=== PATIENT | female | born 1950 | race Caucasian/White ===

== ENCOUNTER 2022-06-28 15:09 | Inpatient (IN) | payer OTHER ==
--- OUTSIDE RECORDS SUMMARY | 2022-06-28 15:17 | XMS REPORT | Continuity of Care Document ---
:1950 Author Organization [facility] t Address [address] [place] [address] Care Team Providers Name Role Phone Sharpless Primary Care Physician MACHO LOFTON Attending Clinician Unavailable GUILHERME URBAN Attending Clinician Unavailable CO19, NURSENIKKI Attending Clinician Unavailable DR KASSIE UREÑA Attending Clinician Unavailable Lab, Adc Fam Pob I Attending Clinician Unavailable DEANNA PERALTA Attending Clinician Unavailable Doctor Unassigned, [place] Attending Clinician Unavailable DR FAM SORIA Attending Clinician Unavailable Salvador Enrique Attending Clinician Unavailable CHARLY PRICE M.D. Attending Clinician Unavailable LUIS FELIPE AVITIA M.D. Attending Clinician Unavailable LOU POSEY M.D.|DDS Attending Clinician Unavailable KIERAN MORRIS M.D. Attending Clinician Unavailable AIDA BRAVO Attending Clinician Unavailable Physician, No Primary or Family Admitting Clinician UnavailDR KASSIE Anthony Admitting Clinician Unavailable DR FAM SORIA Admitting Clinician Unavailable Salvador Enrique Admitting Clinician Unavailable ALEX MENA Admitting Clinician Unavailable Payers Payer Name Policy Type Policy Number Effective Date Expiration Date S ource Problems Condition Condition Condition Status Onset Resolution Last Treating Co mments Source Name Details Category Date Date Treatment Clinician Date Severe Severe Disease Active [facility] dehydratio dehydratio 04-17 [facility] Hospita 00 l Parkinson' Parkinson' Disease Active 2018-0 M ethodi s disease s disease 3 00:00: Hospita 00 l Memory Memory Disease Active 0 [facility] loss loss 10-27 00:00: Hospita 00 l 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:00: [facility] parkinsoni parkinsoni 00 l sm sm Colitis Colitis [facility] Acute Acute Disease Active [facility] respirator respirator 7-07 Rianna kes y failure y failure 00:00: [facility] melissa with with 00 Center hypoxia hypoxia Low back Low back Problem Active [facility] ans Parotid Parotid Problem Active [facility] Encounter Encounter Problem Active [facility] for for Physici administra administra an s tion of tion of COVID-19 COVID-19 vaccine vaccine Allergies, Adverse Reactions, Alerts Allergy Allergy Status Severity Reaction(s) Onset Inactive Treating Comm ents Source Name Type Date Date Clinician No Known DA Active [facility] 03[facility] s 00:00: [place] 00 [facility] No Known DA Active U [facility] 7-31 [place] [facility] 00:[facility] No Known DA Active U 2018- [facility] Allergie 6 Clear s 00:00: [place] 00 [facility] No Known DA Active U [facility] Allergie 6- [place] s 00:00: Health 00 are [place] No Known DA Active Unknown 2012-08 [facility] Allergie 0-06 Medical s 00:00: Center 00 NO KNOWN Drug Active [facility]ERGIE Class ity of S [facility] Social History Social Habit Start Date Stop Date Quantity Comments Source History of Smokes tobacco [facility] tobacco use daily Hospital History SDNJ [facility] Alcohol Std Hospital Drinks History SDOH [facility] Alcohol Binge Hospital Alcohol intake 2019-04-17 2019-04-17 Current [facility] 00:00:00 00:00:00 non-drinker of Hospital alcohol (finding) History SDOH 2019-04-17 2019-04-17 1 [facility] Alcohol Frequency 00:00:00 00:00:00 Hospita l Tobacco use and 2018-10-27 2018-10-27 Smokeless tobacco Me thodist exposure 00:00:00 00:00:00 non-user Hospital Sex Assigned At [birth year] [facility] 00:00:00 00:00:00 Hospital Smoking Status Start Date Stop Date Source Smokes tobacco daily 2018-10-27 00:00:00 [facility] Former smoker 2016-03-02 00:00:00 2016-03-02 00:00:00 [facility] Medications Ordered Filled Start Stop Current Ordering Indication Dosage Frequency Signature Comments Components Source Medication Medication Date Date Medication? Clinician (SIG) Name Name simvastatin Yes 20mg QD Take 20 mg [facility] (ZOCOR) 20 04-[address] MG tablet 12:08: nightly. Hosp francis 35 l levothyroxi Yes 88ug QD Take 88 Met hodi ne 9- mcg by st (SYNTHROID, 12:08: mouth Hospi ta LEVOXYL) 88 35 every l mcg tablet morning. omeprazole Yes 40mg QD Take 40 mg M ethodi (PriLOSEC) 04-[address] 40 MG 12:08: daily. Hospita capsule 35 l multivitami Yes 1{tbl} QD Take 1 Me thodi n 9-[address] (THERAGRAN) 12:08: mouth Hospi ta tablet 35 daily. l lisinopril Yes 10mg QD Take 1 Metho di (PRINIVIL,Z 9-03 tablet (10 st ESTRIL) 10 00:00: mg total) Ho spita mg tablet 00 by mouth l daily for 30 days. traMADol traMADol 2017- Yes KIERAN TAKE 1 UT HCl - 50 MG HCl - 50 MG 7-20 [facility] TABLET Physici Oral Tablet Oral Tablet 00:00: M.D. EVERY 4 TO ans 00 6 HOURS NEEDED FOR PAIN. traMADol traMADol Yes KIERAN Q6H TAKE 1 UT HCl - 50 MG HCl - 50 MG 6-12 ART[facility] TABLET Physici Oral Tablet Oral Tablet 00:00: M.D. EVERY 6 ans 00 HOURS NEEDED FOR BREAKTHROU GH PAIN. methylPREDN methylPREDN Yes KIERAN take as UT ISolone 4 ISolone 4 6-12 ARTURO directed Physici MG Oral MG Oral 00:00: M.D. for 5 days a ns Tablet Tablet 00 Therapy Therapy Pack Pack Ketorolac Ketorolac Yes KIERAN TAKE 2 UT Tromethamin Tromethamin 6-12 ARTURO PILLS WITH Physici e 10 MG e 10 MG 00:00: M.D. FIRST ans Oral Tablet Oral Tablet 00 DOSE. THEN TAKE 1 PILL EVERY 8HRS NEEDED FOR PAIN (x5 DAYS) doxepin 2017-0 Yes 25mg QD Take [address] (SINEQUAN) 8-17 by mouth [facility] 25 MG 15:59: nightly. Medical capsule 34 Center levothyroxi 2017-0 Yes 88ug Take [address] ne 8-17 mcg by [facility] (SYNTHROID, 15:59: mouth Medic al LEVOTHROID) 34 Every Center 88 MCG morning on tablet an empty stomach. pantoprazol 2017-0 Yes 40mg QD Take [address] e 8-17 by mouth [facility] (PROTONIX) 15:59: daily. Medic al 40 MG 34 Center tablet zolpidem 2017-0 Yes 5mg Take [address] (AMBIEN) 5 8-17 by mouth [facility] MG tablet 15:59: every Medical 34 night as Center needed for Insomnia. lisinopril 2017-0 Yes 20mg QD Take [address] (PRINIVIL,Z 8-17 by mouth Luke s ESTRIL) 20 15:59: daily. Medic al MG tablet 34 Center simvastatin 2017-0 Yes 20mg QD Take [address] (ZOCOR) 20 8-17 by mouth [facility] MG tablet 15:59: nightly. [address] clonazePAM 2017-0 Yes .5mg Take 0.[address] (KLONOPIN) 8-17 mg by [facility] 0.5 MG 15:59: mouth 2 Medical tablet 34 (two) Center times daily as needed for Anxiety. haloperidol 2017-0 Yes 5mg QD Take [address] (HALDOL) 5 8-17 by mouth [facility] MG tablet 15:59: every Medical 34 morning. Center haloperidol 2017-0 Yes 10mg QD Take [address] (HALDOL) 10 8-17 by mouth Luke s MG tablet 15:59: nightly. [address] memantine 2017-0 Yes 10mg Q.5D Take [address] (NAMENDA) 8-17 by mouth 2 Luke s 10 MG 15:59: (two) Medical tablet 34 times Center daily. LORazepam 2017-0 Yes .5mg Take 0.[address] (ATIVAN) 8-17 mg by [facility] 0.5 MG 15:59: mouth Medical tablet 34 every 6 Center (six) hours as needed for Anxiety. trihexyphen 2017-0 Yes 5mg Take [address] idyl 8-17 by mouth 3 [facility] (ARTANE) 5 15:59: (three) Medi melissa MG tablet 34 times Center daily with meals. risperiDONE 2017-0 Yes 2mg Q.5D Take [address] (RISPERDAL) 8-17 by mouth 2 Rianna kes 2 MG tablet 15:59: (two) Medic al 34 times Center daily. QUEtiapine 2017-0 Yes 300mg QD Take [address] (SEROQUEL) 8-17 mg by [facility] 300 MG 15:59: mouth Medical tablet 34 nightly Center Two tablets at night . Immunizations Ordered Immunization Filled Immunization Date Status Commen ts Source Name Name [email or web address] 2020-10-03 Completed [facility] COVID-19 Vacc 30 15:03:00 MCG/0.3ML Intramuscular Suspension Vital Signs Vital Name Observation Time Observation Value Comments Source Height 2020-05-05 20:45:00 157.48 CM Weight 2020-05-05 20:45:00 63.5 KG Height 2020-05-05 12:39:00 132.08 CM Weight 2020-05-05 12:39:00 63.5 KG BP Systolic 2018-10-18 14:03:00 120 mm[Hg] [facility] BP Diastolic 2018-10-18 14:03:00 48 mm[Hg] [facility] Height 2018-10-18 14:03:00 63 [in_us] [facility] Weight 2018-10-18 14:03:00 170 [lb_av] [facility] Body Mass Index 2018-10-18 14:03:00 30.11 kg/m2 [facility] Calculated Heart Rate 2018-10-18 14:03:00 102 /min [facility] BP Systolic 2018-10-04 13:47:00 134 mm[Hg] [facility] BP Diastolic 2018-10-04 13:47:00 63 mm[Hg] [facility] Height 2018-10-04 13:47:00 63 [in_us] [facility] Weight 2018-10-04 13:47:00 170 [lb_av] [facility] Body Mass Index 2018-10-04 13:47:00 30.11 kg/m2 [facility] Calculated Heart Rate 2018-10-04 13:47:00 91 /min [facility] BP Systolic 2018-08-02 15:27:00 132 mm[Hg] [facility] BP Diastolic 2018-08-02 15:27:00 68 mm[Hg] [facility] Height 2018-08-02 15:27:00 63 [in_us] [facility] Weight 2018-08-02 15:27:00 170 [lb_av] [facility] Body Mass Index 2018-08-02 15:27:00 30.11 kg/m2 [facility] Calculated Heart Rate 2018-08-02 15:27:00 96 /min [facility] BP Systolic 2018-06-29 15:13:00 178 mm[Hg] [facility] BP Diastolic 2018-06-29 15:13:00 85 mm[Hg] [facility] Height 2018-06-29 15:13:00 63 [in_us] [facility] Weight 2018-06-29 15:13:00 170 [lb_av] [facility] Body Mass Index 2018-06-29 15:13:00 30.11 kg/m2 [facility] Calculated Heart Rate 2018-06-29 15:13:00 105 /min [facility] Procedures Procedure Date / Time Performed Performing Clinician Sourc e CT Neck soft tissue w 2018-06-29 00:00:00 [facility] contrast [id number] MRI Neck w contrast [id number] 2018-06-29 00:00:00 [facility] MRI Spine lumbar wo contrast 2018-03-10 00:00:00 [facility] [id number] Plan of Care Planned Activity Planned Date Details Comments Source Future Scheduled 2022-06-27 HEPATITIS B VACCINES Met [facility] Test 08:15:27 (1 of 3 - 3-dose series) [code = HEPATITIS B VACCINES (1 of 3 - 3-dose series)] Future Scheduled 2022-06-27 COVID-19 VACCINE (#1) [facility] Test 08:15:27 [code = COVID-19 VACCINE (#1)] Future Scheduled 2022-06-27 BREAST CANCER [facility] Test 08:15:27 SCREENING [code = BREAST CANCER SCREENING] Future Scheduled 2022-06-[address] [facility] Test 08:15:27 [code = COLONOSCOPY SCREENING] Future Scheduled 2022-06-27 SHINGLES VACCINES ([address] [facility] Test 08:15:27 of 2) [code = SHINGLES VACCINES (1 of 2)] Future Scheduled 2022-06-27 65+ [facility]CCAL [facility] Test 08:15:27 VACCINE (1 - PCV) [code = 65+ PNEUMOCOCCAL VACCINE (1 - PCV)] Future Scheduled 2022-06-27 INFLUENZA VACCINE [facility] Test 08:15:27 [code = INFLUENZA VACCINE] Encounters Start End Encounter Admission Attending Care Care Encounter Source Date/Time Date/Time Type Type Clinicians Facility Department ID 2022-05-21 Emergency HFD HFD [id number] ALBINO - 10:19:51 [facility] Depart ent 2020-06-17 Inpatient HCAPM PATIENCE [id number] [facility] 17:39:00 [id number] [facility] 2022-04-23 2022-04-23 Emergency E MACHO LOFTON BL BL [id number] BL 11:30:00 17:50:00 2022-04-20 2022-04-20 Emergency E RAJNI, MHBL MHBL [id number] MHBL 14:01:00 21:20:00 GUILHERME 2020-10-03 2020-10-03 Appointmen TYESHA BROTHERS UTP [id number] [place] 14:00:00 14:00:00 t; CO19, NURSE-COOLE P hysici NURSE-COOL Y ans EY 2020-05-05 2020-05-19 Inpatient E NIRANJAN, [facility] [id number] [facility] 15:33:00 17:30:00 KASSIE Medica l [place] 2020-03-21 2020-03-21 Laboratory Lab, [facility] [id number] 16:57:33 17:17:33 Only Fam Pob I Health [id number] [place] [id number] Professio [id number] nal [address] 2020-03-21 2020-03-21 Outpatient R FABIAN, [facility] [id number] [facility] 16:40:00 16:40:00 DEANNA raymond of [facility] 2020-03-21 2020-03-21 Letter Doctor BALA [id number] 00:00:00 00:00:00 (Out) Unassigned, JOE [id number] [place] [facility] [id number] 2019-02-27 2019-03-02 Outpatient E YANG, [facility] [id number] [place] 13:58:00 19:05:00 FAM Medica l [place] 2019-02-26 2019-02-26 Emergency E MHBL MHBL [id number] MHBL 12:55:00 12:55:00 2019-02-11 2019-02-19 Inpatient UR Enrique, HCAPM MEDI.01 [id number] [facility] 18:30:00 19:06:[address] 2019-01-17 2019-01-17 Appointmen TYESHA PRICE UTP [id number] [place] 14:30:00 14:30:00 t; CHARLY PRICE, Phys Jose Hayes M.D. 2019-01-08 2019-01-08 Appointapril AVITIA [facility] [id number] [place] 14:30:00 14:30:00 t; Jose BRISCOE AJAI, M.D. 2018-10-18 2018-10-21 Outpatient [facility] [id number] 13:30:00 07:00:29 2018-10-18 2018-10-18 Appointmen TATY [facility] Oral & [id number] [place] 13:30:00 13:30:00 t; LOU POSEY Maxillofdeidra BLAKE M.D.|DDS al Surgery an s MEma|DDS 2018-10-04 2018-10-04 Appointmen TYESHA POSEY Oral & [id number] [place] 13:30:00 13:30:00 t; LOU POSEY Maxillofaci Physici JONATHAN, M.D.|DDS al Surgery an s MEma|DDS 2018-08-02 2018-08-02 Outpatient [facility] [id number] 15:00:00 16:10:25 2018-08-02 2018-08-02 Appointmen TYESHA POSEY Oral & [id number] [place] 15:00:00 15:00:00 t; LOU POSEY Maxillofaci Physici JONATHAN, M.D.|DDS al Surgery an s MEma|DDS 2018-07-10 2018-07-10 [facility]AH [facility] [id number] [place] 11:30:00 11:30:00 t; Jose BRISCOE AJAI, M.D. 2018-06-29 2018-06-29 Appointmen TYESHA POSEY Oral & [id number] [place] 15:00:00 15:00:00 t; LOU POSEY Maxillofaci Physici JONATHAN, M.D.|DDS al Surgery an s Jose|DDS 2018-06-28 2018-06-28 [facility], [facility] [id number] [place] 15:00:00 15:00:00 t; LOU POSEY Phy sici JONATHAN, M.D.|JORDON العراقي M.D.|DDS 2018-05-29 2018-05-29 [facility] [id number] [place] 09:00:00 09:00:00 t; Jose BRISCOE AJAI, M.D. 2018-05-25 2018-05-25 [facility] [id number] [place] 08:30:00 08:30:00 t; Jose BRISCOE AJAI, M.D. 2018-04-17 2018-04-17 [facility] [id number] [place] 09:30:00 09:30:00 t; Jose BRISCOE AJAI, M.D. 2018-03-10 2018-03-10 [facility] TYESHA MORRIS [facility] [id number] [place] 10:45:00 10:45:00 t; Jose ALCARAZ Ph dulce maria Zambrano M.D. 2018-01-31 2018-01-31 [facility] [id number] [place] 08:35:00 08:35:00 t; Jose ALCARAZ Orthopedics [facility] dulce maria MORRIS M.D. Results Test Description Test Time Test Comments Results Result Comments Source COMPREHENSIVE METABOLIC PANEL 2020-06-17 18:40:00 Test Item Value Reference Range Interpretation Comme nts SODIUM (test code = NA) 143 mmol/L 134-147 N POTASSIUM (test code = K) 4.3 mmol/L 3.4-5.0 N CHLORIDE (test code = CL) 112 mmol/L 100-108 H CARBON DIOXIDE (test code = CO2) 25 mmol/L 21-32 N ANION GAP (test code = GAP) 6.0 GAP calc 4.0-15.0 N GLUCOSE (test code = GLU) 138 MG/DL 70-110 H BLOOD UREA NITROGEN (test code = BUN) 32 MG/DL 7-18 H GLOMERULAR FILTRATION RATE (test code = GFR) 47 estGFR >60 L CREATININE (test code = CREAT) 1.2 MG/DL 0.6-1.0 H TOTAL PROTEIN (test code = PROT) 6.7 G/DL 6.4-8.2 N ALBUMIN (test code = ALB) 3.0 G/DL 3.4-5.0 L GLOBULIN (test code = GLOB) 3.7 GM/dL ALBUMIN/GLOBULIN RATIO (test code = A/G) 0.8 RATIO 1.2-2.2 L CALCIUM (test code = CA) 8.8 MG/DL 8.5-10.1 N BILIRUBIN TOTAL (test code = BILT) 0.20 MG/DL 0.2-1.2 N SGOT/AST (test code = AST) 26 Unit/L 15-37 N SGPT/ALT (test code = ALT) 20 Unit/L 12-78 N ALKALINE PHOSPHATASE TOTAL (test code = ALKP) 83 Unit/L 45-117 N Completed by Nursing: [id number] 18:40:00 Test Item Value Reference Range Interpretation Comments TROPONIN-I (test < 0.015 NG/ML 0.000-0.045 N Negative: </= 0.045 code = TROPI) Positive: >/= 0.046 Correlation wit h serial results, other cardiac markers, and cl inical findings is nec essary to determine the c linical significance of this result. Quantit ative results using d ifferent methodologies s hould not be compared to one another as nume rical results may shar yby method. Completed by Nursing: NO- XR CHEST 1 [id number] 18:33:00 [facility] 1950 Sex: F Name:LARRY MARINO [facility]ly [facility] : 1950 Age/S: 70 / F [address] Unit #: [id number] Loc: [place] [address] Phys: Garo Veras MD Acct: [id number] Dis Date: Status: REG ER PHONE #: [phone] Exam Date: 06/17/2020 175 FAX #: Reason: dyspnea EXAMS: CPT: [id number] XR CHEST 1 V 51236 Fluoro Time: DAP (Gy m2): Air Kerma (mGy): Site ID: [id number] HISTORY: Dyspnea FINDINGS: The lungs are clear and normally expanded. The heart and pulmonary vasculature is normal. Osseous structures are unremarkable. IMPRESSION: Negative chest X-ray. at 1833 Reported and signed by: Thanh Kemp M.D. CC: Garo Veras MD PAGE 1 Signed Report Name: LARRY MARINO [facility] : 1950 Age/S: 70 / F [address] [facility] Unit #: [id number]: [place] [address] Phys: Garo Veras MD Acct: [id number] Dis Date: Status: REG ER PHONE #: [phone] Exam Date: 06/17/2020 175 FAX #: Reason: dyspnea EXAMS: CPT: [id number] XR CHEST 1 [id number] Fluoro Time: DAP (Gy m2): Air Kerma (mGy): (Continued) Technologist: Jasmyn Kovacs, RT(R)(CT)Trnscb Date/Time: 06/17/2020 (183) [email or web address] Orig Print D/T: S: 06/17/2020 (183) PAGE 2 Signed ReportCOVID 19 INHOUSE [id number] 18:09:00 Test Item Value Reference Range Interpretation Comments COVID 19 INHOUSE AG NEGATIVE Negative Per manu facturer, (test code = negative result s should [id number]) be treated aspr esumptive and, if inconsi stent with clinical signs andsymptoms or necessary for patient man agement, should betested with an alternative mol ecular assay. Negative resultsdo not preclude SA RS-CoV-2 infection and s hould not be usedas the s ole basis for patient man agement decisions. Nega tive results should be considered in t he context of apatient's r ecent exposures, hist ory, presence of cli nicalsigns and symptoms co nsistent with COVID-19. CBC W/AUTO [id number] 18:07:00 Test Item Value Reference Range Interpretation Comments WHITE BLOOD CELL (test code = 10.0 K/mm3 3.5-11.0 N WBC) RED BLOOD CELL (test code = 4.76 M/mm3 4.70-6.10 N RBC) HEMOGLOBIN (test code = HGB) 14.3 G/DL 10.4-14.9 N HEMATOCRIT (test code = HCT) 44.6 % 31.5-44.1 H MEAN CELL VOLUME (test code = 93.7 Fl 84.5-98.6 N MCV) MEAN CELL HGB (test code = MCH) 30.0 pg 27.0-34.2 N MEAN CELL HGB CONCETRATION 32.1 G/DL 31.5-34.0 N (test code = MCHC) RED CELL DISTRIBUTION WIDTH 12.9 SD 11.5-14.5 N (test code = RDW) PLATELET COUNT (test code = 159 K/mm3 150-450 N PLT) MEAN PLATELET VOLUME (test code 10.80 fL 7.0-10.5 H = MPV) NEUTROPHIL % (test code = NT%) 55.4 % 40-76 N IMMATURE GRANULOCYTE % (test 0.3 % 0.0-5.0 N code = IG%) LYMPHOCYTE % (test code = LY%) 34.8 % 20.5-51.1 N MONOCYTE % (test code = MO%) 4.9 % 1.7-9.3 N EOSINOPHIL % (test code = EO%) 4.3 % 0.0-6.0 N BASOPHIL % (test code = BA%) 0.3 % 0.0-2.0 N NUCLEATED RBC % (test code = 0.0 /100WBC% 0.0-1.0 N NRBC%) NEUTROPHIL # (test code = NT#) 5.5 K/mm3 1.8-7.6 N IMMATURE GRANULOCYTE # (test 0.03 x10 3/uL 0.00-0.03 N code = IG#) LYMPHOCYTE # (test code = LY#) 3.5 K/mm3 0.6-3.2 H MONOCYTE # (test code = MO#) 0.5 K/mm3 0.3-1.1 N EOSINOPHIL # (test code = EO#) 0.4 K/mm3 0.0-0.4 N BASOPHIL # (test code = BA#) 0.0 K/mm3 0.0-0.1 N NUCLEATED RBC # (test code = 0.0 K/mm3 0.0-0.1 N NRBC#) MANUAL DIFF REQUIRED (test code NO DIFF/SCN CRITERIA = MDIFF) SARS-CoV (RAPID ANTIGEN)2020-05-19 15:42:00 Test Item Value Reference Range Interpretation Comments SARS-CoV (ANTIGEN) NEGATIVE NEGATIVE (test code = COVAG) COVID AG (test This test has been code = COVAGC) marketed under the FDA Emergency Use Authorization (EUA) to meet challenges of the COVID-19 pandemic. The validation standards normally enforced by the FDA and the [employer] of the [employer] (CAP) are more stringent than those required for this test. Therefore, the result should be interpreted with caution and close attention to other clinical and epidemiological data B12 [id number] 21:53:00 Test Item Value Reference Range Interpretation Comments VIT B12 (test code = A60) 1699.0 pg/mL 180.0-914.0 H [id number] 21:34:00 Test Item Value Reference Range Interpretation Comments Hb A1C % (test code 5.0 % 3.8-6.4 = HBA) A1C % (test code = HbA1c (% ) A1C) Reference Range Normal <5.7 Prediabetes 5.7-6.4 Diabetic >=6.5 VALPROIC ACID (DEPAKENE)2020-05-05 21:28:00 Test Item Value Reference Range Interpretation Comments VALP ACID (test code = 95A) 59.9 ug/mL 50.0-100.0 [id number] 17:10:00 Test Item Value Reference Range Interpretation Comments FOLATE (test code = A75) 22.6 ng/mL 3.1-17.5 H THYROID PANEL/SCREEN (TSH)2020-05-05 16:52:00 Test Item Value Reference Range Interpretation Comments TSH (test code = A57) 2.530 uIU/mL 0.358-3.740 [id number] 16:48:00 Test Item Value Reference Range Interpretation Comments PREALBUMIN (test code = 08E) 36 mg/dL 18-38 LIPID [id number] 16:48:00 Test Item Value Reference Range Interpretation Comments CHOLESTROL (test code = 44A) 171 mg/dL 140-200 TRIGLYCERI (test code = 42B) 108 mg/dL <=149 HDL (test code = 83D) 48.0 mg/dL 40.0-60.0 LDL (test code = 34B) 98 mg/dL <=99 CHL/HDL (test code = CHR) 3.6 0.0-3.4 H [id number] 16:31:00 Test Item Value Reference Range Interpretation Comments MAGNESIUM (test code = 48A) 2.0 mg/dL 1.8-2.4 [id number] 15:32:00 Test Item Value Reference Range Interpretation Comments D-DIMER (test code = <200 ng/mL D-DU 0-234 DDI) D-DIMER COMMENT (test *Level to rule out code = DDCOM) DVT or PE: <235 ng/mL D-DU* [id number] 15:27:00 Test Item Value Reference Range Interpretation Comments FERRITIN (test code = A19) 48.2 ng/mL 8.0-252.0 LDH-LACTIC [id number] 15:27:00 Test Item Value Reference Range Interpretation Comments LDH (test code = 33A) 188 IU/L 84-246 C-REACTIVE PROTEIN [id number] 15:23:00 Test Item Value Reference Range Interpretation Comments CRP QUANT (test code 4.0 mg/L 0.0-2.9 H = CRPQ) Method Change (test Please note the code = METHOD) change in Method and the reference range SARS-CoV (RAPID ANTIGEN)2020-05-05 15:05:00 Test Item Value Reference Range Interpretation Comments SARS-CoV (ANTIGEN) NEGATIVE NEGATIVE (test code = COVAG) COVID AG (test This test has been code = COVAGC) marketed under the FDA Emergency Use Authorization (EUA) to meet challenges of the COVID-19 pandemic. The validation standards normally enforced by the FDA and the [employer] of the [employer] (CAP) are more stringent than those required for this test. Therefore, the result should be interpreted with caution and close attention to other clinical and epidemiological data [id number] 15:00:00 Test Item Value Reference Range Interpretation Comments COLOR (test code = COLU) YELLOW YELLOW CLARITY (test code = CLA) CLEAR CLEAR GLUCOSE UR (test code = UA GLUCOSE) NEGATIVE NEGATIVE BILI UR (test code = BILE) NEGATIVE NEGATIVE KETONES UR (test code = GALO) NEGATIVE NEGATIVE SP GRAVITY (test code = SPGR) 1.022 1.005-1.030 PH UR (test code = PH) 6.5 4.5-8.0 PROTEIN UR (test code = PU) NEGATIVE NEGATIVE UROBIL UR (test code = UROQ) 0.2 EU/dL 0.2-1.0 NITRITE UR (test code = NITRITE) NEGATIVE NEGATIVE BLOOD UR (test code = UA BLOOD) NEGATIVE NEGATIVE LEUK ES UR (test code = LEUK) NEGATIVE NEGATIVE DRUGS OF [id number] 15:00:00 Test Item Value Reference Range Interpretation Comments DRUG SCRN (test code = URINE DRUG HDOA) SCREEN This is an unconfirmed screening result and should not be used for non-medical purposes CANNABINOD (test code Negative NEGATIVE = 88C) AMPHETAMINE (test code Negative NEGATIVE = 84A) BENZODIAZP (test code Negative NEGATIVE = 86A) BARBITURAT (test code Negative NEGATIVE = 85A) OPIATES (test code = Negative NEGATIVE 92B) COCAINE (test code = Negative NEGATIVE 87A) PHENCYCLID (test code Negative NEGATIVE = 66A) METHADONE (test code = Negative NEGATIVE 64A) DOAH (test code = DOAH.) URINE DRUG SCREEN Cut-off values are as follows: Cannabinoids 50 ng/mL Cocaine 300 ng/mL Amphetamines 1000 ng/mL Phencyclidine 25 ng/mL Benzodiazepines 200 ng.mL Methadone 300 ng/mL Barbiturates 200 ng/mL Opiates 2000 ng/mL PRO TIME AND [id number] 13:38:00 Test Item Value Reference Range Interpretation Comments PT (test code = 11.1 s 9.8-13.6 TT) INR (test code = 1.0 INR) INRH (test code = SUGGESTED THERAPEUTIC INRH) RANGE FOR INR: 2.5 - 3.5 For Patients with Prosthetic Valves or Patients with recurrent Thromboembolic Events 2.0 - 3.0 For Most Other Applications PTT (test code = 30.0 s 20.2-38.0 PTT) PTTH (test code = To monitor the PTTH) effectiveness of heparin, we offer the Anti-Xa (Heparin Assay). It can be used for either unfractionated or LMW Heparin. Order Code is ANTI-XA COMPREHENSIVE METABOLIC [id number] 13:30:00 Test Item Value Reference Range Interpretation Comments GLUCOSE (test code = 90 mg/dL 75-100 06D) SODIUM (test code = 140 mmol/L 136-145 01A) POTASSIUM (test code = 4.3 mmol/L 3.6-5.1 01B) CHLORIDE (test code = 112 mmol/L 98-107 H 04A) CO2 (test code = 02A) 23 mmol/L 22-32 ANION GAP (test code = 9.3 mmol/L ANG) BUN (test code = 05D) 28 mg/dL 7-18 H CREATININE (test code 1.2 mg/dL 0.4-1.1 H = 03E) GFR (test code = GFR) 45 mL/min/1.73m\\S\\2 >=90 L GFR 53 mL/min/1.73m\\S\\2 >=90 L (test code = GFRAA) EGFR (test code = eGFR BY CKD-EPI EGFR) CALCULATION IS NOT RECOMMENDED FOR PATIENTS UNDER 18 YEARS OF AGE. BUN/CREA (test code = 23 12-20 H BCR) CALCIUM (test code = 9.5 mg/dL 8.3-9.5 09D) BILI TOTAL (test code 0.2 mg/dL 0.2-1.0 = 11A) PROTEIN (test code = 7.4 g/dL 6.4-8.2 07D) ALBUMIN (test code = 3.5 g/dL 3.5-4.8 08D) GLOBULIN (test code = 3.9 g/dL 1.5-3.8 H GLB) ALB/GLOB (test code = 0.9 1.0-2.6 L AGRR) ALK PHOS (test code = 86 IU/L 42-121 35A) AST (test code = 30A) 12 IU/L <=42 ALT (test code = 31A) 17 IU/L <=78 [id number] 13:30:00 Test Item Value Reference Range Interpretation Comments ACETAMINPH (test code = 94M) <2.0 ug/mL 10.0-30.0 L CARDIAC [id number] 13:29:00 Test Item Value Reference Range Interpretation Comments TROPONIN I (test code = A84) <0.015 ng/mL 0.000-0.045 ALCOHOL BLOOD (ETOH)2020-05-05 13:29:00 Test Item Value Reference Range Interpretation Comments ETOH (test code = HALC) ETHANOL The result is to be used only for medical purposes ALCOHOL (test code = <10 mg/dL <=10 56A) [id number] 13:24:00 Test Item Value Reference Range Interpretation Comments SALICYLATE (test code = 94B) <1.7 mg/dL 2.8-20.0 L CBC (INCLUDES AUTOMATED DIFFERENTIAL)2020-05-05 13:17:00 Test Item Value Reference Range Interpretation Comments WBC (test code = WBC) 11.4 10\\S\\3/uL 4.5-11.0 H RBC (test code = RBC) 5.15 10\\S\\6/uL 3.80-5.80 HGB (test code = HBG) 15.7 g/dL 12.0-15.5 H HCT (test code = HCT) 46.7 % 35.0-44.0 H MCV (test code = MCV) 90.7 fL 81.0-99.0 MCH (test code = MCH) 30.5 pg 27.0-31.0 MCHC (test code = MCHC) 33.6 g/dL 32.0-36.0 RDW (test code = RDW) 12.6 % 11.5-14.5 PLT (test code = PLT) 267 10\\S\\3/uL 130-400 MPV (test code = MPV) 10.4 fL 9.4-12.4 NEUTROP # (test code = NE#) 8.2 10\\S\\3/uL 1.6-8.0 H LYMPH # (test code = LY#) 2.3 10\\S\\3/uL 1.1-3.5 MONOCYTE # (test code = MO#) 0.9 10\\S\\3/uL 0.0-1.1 EOSINOPH # (test code = EO#) 0.1 10\\S\\3/uL 0.0-0.7 BASOPHIL # (test code = BA#) 0.0 10\\S\\3/uL 0.0-0.3 IG # (test code = IG#) 0.06 10\\S\\3/uL 0.00-0.06 NRBC # (test code = NRBC#) 0.00 10\\S\\3/uL 0.00-0.01 NEUTROPH % (test code = NE%) 71.3 % 35.0-73.0 LYMPH % (test code = LY%) 19.8 % 20.0-55.0 L MONO % (test code = MO%) 7.7 % 2.5-10.0 EOSINOPH % (test code = EO%) 0.5 % 0.0-5.0 BASOPHIL % (test code = BA%) 0.2 % 0.0-2.0 IG % (test code = IG%) 0.5 % 0.0-0.8 NRBC% (test code = NRBC%) 0.0 % 0.0-0.2 MANDIFF (test code = MDIFF) NO RBC MORPH (test code = RBCMOR) NORMAL CBC W/AUTO [id number] 15:13:00 Test Item Value Reference Range Interpretation Comments WHITE BLOOD CELL (test code = WBC) 5.99 K/mm3 5.0-12.0 N RED BLOOD CELL (test code = RBC) 3.80 M/mm3 4.20-5.40 L HEMOGLOBIN (test code = HGB) 10.8 G/DL 12.0-16.0 L HEMATOCRIT (test code = HCT) 35.6 % 36.0-46.0 L MEAN CELL VOLUME (test code = MCV) 94 fL 81-99 N MEAN CELL HGB (test code = MCH) 28.4 PGM 27-31 N MEAN CELL HGB CONCENTRATION (test 30.3 G/DL 33-37 L code = MCHC) RED CELL DISTRIBUTION WIDTH (test 22.6 % 11.6-16.2 H code = RDW) PLATELET COUNT (test code = PLT) 222 K/mm3 130-400 N MEAN PLATELET VOLUME (test code = 10.9 fl 7.4-10.4 H MPV) NEUTROPHIL % (test code = NT%) 79.3 % 43-65 H IMMATURE GRANULOCYTE % (test code 0.3 % 0.0-2.0 N = IG%) LYMPHOCYTE % (test code = LY%) 13.7 % 20.5-45.5 L MONOCYTE % (test code = MO%) 5.8 % 5.5-11.7 N EOSINOPHIL % (test code = EO%) 0.7 % 0.9-2.9 L BASOPHIL % (test code = BA%) 0.2 % 0.2-1.0 N NUCLEATED RBC % (test code = 0.0 % 0-1.0 N NRBC%) NEUTROPHIL # (test code = NT#) 4.75 K/mm3 2.2-4.8 N LYMPHOCYTE # (test code = LY#) 0.82 K/mm3 1.3-2.9 L MONOCYTE # (test code = MO#) 0.35 K/mm3 0.3-0.8 N EOSINOPHIL # (test code = EO#) 0.04 K/MM3 0.0-0.2 N BASOPHIL # (test code = BA#) 0.01 K/mm3 0.0-0.1 N DIFFERENTIAL [id number] 15:13:00 Test Item Value Reference Range Interpretation Comments ANISOCYTOSIS (test code = ANISO) 1+ NONE SEEN A - CT HEAD/BRAIN W/O [id number] 12:40:00Patient Name: LARRY MARINO Unit No: [id number] EXAMS: CPT: [id number] CT HEAD/BRAIN W/O CONT 35675 Comparison study: 01/25/2019 HISTORY: dizziness CT SCAN OF THE HEAD WITHOUT CONTRAST FINDINGS: CT scan ofbrain was performed without contrast. CT radiation dose optimization is achieved for this examination by the use of a CT protocol in accordance with ACR practice standards and adherence to erp analyst's recommendations. One or more of the following dose reduction techniques were used: Automated exposure control, adjustment of the mA and/or KV according to patient size, and/or utilization of iterative reconstruction technique. The cortical sulci, cisterns and ventricles are within normal limits. Nointra-axial mass, hemorrhage or evidence of acute infarction is seen. No extra-axial fluid collections are present. The visualized aspects of the orbits and skull are unremarkable. An old right medial orbital wall blowout fracture is yet present. The visualized sinuses are clear. IMPRESSION: 1. No acute intracranial abnormality identified. at 1240 Reported and signed by: Sj Contreras MD CC: Alysia Tracey MD Technologist: Bala Babb CTDI: 45.2 DLP: 999.1 Trscr Dt/Tm: 04/16/2019 (1240) by:[email or web address] [facility] Print D/T: S: 04/16/2019 (1243) BATCH NO: N/A Name: LARRY MARINO [facility] [place] Phys: Alysia Whatley [address] [facility] : 1950 Age: 69 Sex: F [place] Loc: TTIMOTEO E xam Date: 04/16/2019 Status: REG ER PH: FAX: PAGE 1 Signed ReportBASIC METABOLIC [id number] 12:12:00 Test Item Value Reference Range Interpretation Comments SODIUM (test code = 139 mmol/L 136-145 N NA) POTASSIUM (test code 3.7 MMOL/L 3.6-5.2 N = K) CHLORIDE (test code = 111 MMOL/L 98-110 H CL) CARBON DIOXIDE (test 15 mEq/L 24-32 L code = CO2) GLUCOSE (test code = 123 mg/dL 70-110 H GLU) BLOOD UREA NITROGEN 25 mg/dL 7-18 H (test code = BUN) GLOMERULAR FILTRATION 34 >60 L The es timated RATE (test code = glomerular filtration GFR) rate is compute d usingpatient ra ce, age (>18), sex, and serum creatinine. If anyof the needed data elements are mi ssing the Laboratory cannot compute an anthony mation of the glomerul ar filtration rate . CREATININE (test code 1.60 mg/dL 0.60-1.30 H = CREAT) CALCIUM (test code = 9.6 mg/dL 8.6-10.4 N CA) [id number] 12:12:00 Test Item Value Reference Range Interpretation Comments TROPONIN-I (test code = TROPI) 0.00 ng/mL 0.00-0.03 N BASIC METABOLIC [id number] 12:01:00 Test Item Value Reference Range Interpretation Comments SODIUM (test code = 139 mmol/L 136-145 N NA) POTASSIUM (test code 3.7 MMOL/L 3.6-5.2 N = K) CHLORIDE (test code = 111 MMOL/L 98-110 H CL) CARBON DIOXIDE (test 15 mEq/L 24-32 L code = CO2) GLUCOSE (test code = 123 mg/dL 70-110 H GLU) BLOOD UREA NITROGEN 25 mg/dL 7-18 H (test code = BUN) GLOMERULAR FILTRATION 34 >60 L The es timated RATE (test code = glomerular filtration GFR) rate is compute d usingpatient ra ce, age (>18), sex, and serum creatinine. If anyof the needed data elements are mi ssing the Laboratory cannot compute an anthony mation of the glomerul ar filtration rate . CREATININE (test code 1.60 mg/dL 0.60-1.30 H = CREAT) CALCIUM (test code = 9.6 mg/dL 8.6-10.4 N CA) [id number] 12:01:00 Test Item Value Reference Range Interpretation Comments TROPONIN-I (test code = TROPI) ng/mL 0.00-0.03 BASIC METABOLIC [id number] 11:58:00 Test Item Value Reference Range Interpretation Comments SODIUM (test code = NA) 139 mmol/L 136-145 N POTASSIUM (test code = K) 3.7 MMOL/L 3.6-5.2 N CHLORIDE (test code = CL) 111 MMOL/L 98-110 H CARBON DIOXIDE (test code = CO2) 15 mEq/L 24-32 L GLUCOSE (test code = GLU) 123 mg/dL 70-110 H BLOOD UREA NITROGEN (test code = mg/dL 7-18 BUN) GLOMERULAR FILTRATION RATE (test >60 code = GFR) CREATININE (test code = CREAT) mg/dL 0.60-1.30 CALCIUM (test code = CA) 9.6 mg/dL 8.6-10.4 N [id number] 11:58:00 Test Item Value Reference Range Interpretation Comments TROPONIN-I (test code = TROPI) ng/mL 0.00-0.03 CBC W/AUTO [id number] 11:39:00 Test Item Value Reference Range Interpretation Comments WHITE BLOOD CELL (test code = WBC) 5.99 K/mm3 5.0-12.0 N RED BLOOD CELL (test code = RBC) 3.80 M/mm3 4.20-5.40 L HEMOGLOBIN (test code = HGB) 10.8 G/DL 12.0-16.0 L HEMATOCRIT (test code = HCT) 35.6 % 36.0-46.0 L MEAN CELL VOLUME (test code = MCV) 94 fL 81-99 N MEAN CELL HGB (test code = MCH) 28.4 PGM 27-31 N MEAN CELL HGB CONCENTRATION (test 30.3 G/DL 33-37 L code = MCHC) RED CELL DISTRIBUTION WIDTH (test 22.6 % 11.6-16.2 H code = RDW) PLATELET COUNT (test code = PLT) 222 K/mm3 130-400 N MEAN PLATELET VOLUME (test code = 10.9 fl 7.4-10.4 H MPV) NEUTROPHIL % (test code = NT%) 79.3 % 43-65 H IMMATURE GRANULOCYTE % (test code 0.3 % 0.0-2.0 N = IG%) LYMPHOCYTE % (test code = LY%) 13.7 % 20.5-45.5 L MONOCYTE % (test code = MO%) 5.8 % 5.5-11.7 N EOSINOPHIL % (test code = EO%) 0.7 % 0.9-2.9 L BASOPHIL % (test code = BA%) 0.2 % 0.2-1.0 N NUCLEATED RBC % (test code = 0.0 % 0-1.0 N NRBC%) NEUTROPHIL # (test code = NT#) 4.75 K/mm3 2.2-4.8 N LYMPHOCYTE # (test code = LY#) 0.82 K/mm3 1.3-2.9 L MONOCYTE # (test code = MO#) 0.35 K/mm3 0.3-0.8 N EOSINOPHIL # (test code = EO#) 0.04 K/MM3 0.0-0.2 N BASOPHIL # (test code = BA#) 0.01 K/mm3 0.0-0.1 N CBC W/AUTO [id number] 11:39:00 Test Item Value Reference Range Interpretation Comments WHITE BLOOD CELL (test code = WBC) 5.99 K/mm3 5.0-12.0 N RED BLOOD CELL (test code = RBC) 3.80 M/mm3 4.20-5.40 L HEMOGLOBIN (test code = HGB) 10.8 G/DL 12.0-16.0 L HEMATOCRIT (test code = HCT) 35.6 % 36.0-46.0 L MEAN CELL VOLUME (test code = MCV) 94 fL 81-99 N MEAN CELL HGB (test code = MCH) 28.4 PGM 27-31 N MEAN CELL HGB CONCENTRATION (test 30.3 G/DL 33-37 L code = MCHC) RED CELL DISTRIBUTION WIDTH (test 22.6 % 11.6-16.2 H code = RDW) PLATELET COUNT (test code = PLT) 222 K/mm3 130-400 N MEAN PLATELET VOLUME (test code = 10.9 fl 7.4-10.4 H MPV) NEUTROPHIL % (test code = NT%) 79.3 % 43-65 H IMMATURE GRANULOCYTE % (test code 0.3 % 0.0-2.0 N = IG%) LYMPHOCYTE % (test code = LY%) 13.7 % 20.5-45.5 L MONOCYTE % (test code = MO%) 5.8 % 5.5-11.7 N EOSINOPHIL % (test code = EO%) 0.7 % 0.9-2.9 L BASOPHIL % (test code = BA%) 0.2 % 0.2-1.0 N NUCLEATED RBC % (test code = 0.0 % 0-1.0 N NRBC%) NEUTROPHIL # (test code = NT#) 4.75 K/mm3 2.2-4.8 N LYMPHOCYTE # (test code = LY#) 0.82 K/mm3 1.3-2.9 L MONOCYTE # (test code = MO#) 0.35 K/mm3 0.3-0.8 N EOSINOPHIL # (test code = EO#) 0.04 K/MM3 0.0-0.2 N BASOPHIL # (test code = BA#) 0.01 K/mm3 0.0-0.1 N [id number] 14:31:00 RUN DATE: 03/23/19 [facility] - LAB *LIVE* PAGE 1 RUN TIME: 1432 Specimen Inquiry RUN USER: INTERFACE PATIENT: LARRY MARINO LOC: SARTHAK U #: [id number] AGE/SX: 69/F ROOM: [facility] RE03/21/19REG DR: Paxton Veras MD : 54 BED: 1 DIS: 03/23/19 STATUS: DIS IN TLOC: SPEC #: [id number] RECD: 03/22/19 STATUS: BRANDIN ANDREA #: [id number] LIAT: 03/22/[address]: Paxton Veras MD ENTERED: 03/22/19 SP TYPE: SURG OTHR DR: No Primary or Family Physician Self Referred Sadaf IssaERED: AB/PAS ADRIANA/2, SURG PATH LVL 4/, PATH STAIN GROU COPIES TO: No Primary or Family [place]ician [place] [id number] [facility] [place] [address] [email or web address] MD [address] [place] [address] HISTOLOGY: TISSUE ID BLK PCS DWIGHT LEV PROCEDURE DISPOSITION ____ ___ ___ STOMACH, NOS A 1 1 AB/PAS ADRIANA STOMACH, NOS A 1 2 PATH STAIN GROU ESOPHAGUS, NOS B 1 1 AB/PAS ADRIANA PROCEDURES: ALBLUE (03/22/19) PAS (03/22/19) SURG PATH LVL 4 (03/22/19) PATH STAIN GROU (03/22/19) TISSUES: A. STOMACH, NOS - GASTRIC BODY AND ANTRUM B. ES OPHAGUS, NOS - ESOPHAGEAL BIOPSY CLINICAL HISTORY GI BLEEDING, ANEMIA, VOMITING CONTINUED ON NEXTPAGE RUN DATE: 03/23/19 [facility] - LAB *LIVE* PAGE 2 RUN TIME: 1432 Specimen Inquiry RUN USER: INTERFACE SPEC #: [id number] PATIENT: LARRY MARINO #[id number] (Continued) CPT CODES CPT CODE(S): 78233C5 , 35066 , 43636E1 , , , , FINAL DIAGNOSIS A. Stomach, body and antrum, biopsy: MILD CHRONIC GASTRITIS NEGATIVE FOR INTESTINAL METAPLASIA, DYSPLASIA, OR MALIGNANCY NEGATIVE FOR HELICOBACTER PYLORI ORGANISMS B. Esophagus, biopsy: ACUTE ESOPHAGITIS NEGATIVE FOR INTESTINAL METAPLASIA, DYSPLASIA, OR MALIGNANCY GROSS DESCRIPTION A. Gastric body and antrum biopsy. Received in formalin are two florence tissue fragments, 0.2 and 0.5 cm, all as A. B. Esophageal biopsy. Received in formalin is a florence tissue fragment, 0.1 cm, all as B. ba/nr Grossing performed at [facility] Pathology, [address] [place] [address], [address], [place] [address]. Assistant Principal: Rafael Walls M.D. MICROSCOPIC DESCRIPTION A. Gastric body and antrum biopsy. Sections demonstrate gastric mucosa with mild chronic inflammation. No dysplasia or malignancy is identified. Alcian blue-PAS confirms absence of intestinal metaplasia. The Diff Quik stain demonstrates no evidence of Helicobacter pylori organisms. B. Esophageal biopsy. Sections demonstrate squamous mucosa with a reactive appearance. Increased acute inflammation, consisting predominately of neutrophils is identified involving the mucosal surface. No evidence of fungal organisms is identified. Alcian blue- PAS confirms the absence of intestinal metaplasia. Signed SIGNATURE ON FILE Mitesh Colon 03/23/19 1431 END OF REPORT CBC W/AUTO [id number] 04:50:00 Test Item Value Reference Range Interpretation Comments WHITE BLOOD CELL (test code = 7.0 K/mm3 3.5-11.0 N WBC) RED BLOOD CELL (test code = RBC) 3.43 M/mm3 4.70-6.10 L HEMOGLOBIN (test code = HGB) 9.0 G/DL 10.4-14.9 L HEMATOCRIT (test code = HCT) 27.8 % 31.5-44.1 L MEAN CELL VOLUME (test code = 81.0 Fl 84.5-98.6 L MCV) MEAN CELL HGB (test code = MCH) 26.2 pg 27.0-34.2 L MEAN CELL HGB CONCETRATION (test 32.4 G/DL 31.5-34.0 N code = MCHC) RED CELL DISTRIBUTION WIDTH (test 25.6 SD 11.5-14.5 H code = RDW) PLATELET COUNT (test code = PLT) 175.0 K/mm3 150-450 N MEAN PLATELET VOLUME (test code = 10.90 fL 7.0-10.5 H MPV) NEUTROPHIL % (test code = NT%) 70.4 % 40-76 N LYMPHOCYTE % (test code = LY%) 20.3 % 20.5-51.1 L MONOCYTE % (test code = MO%) 8.9 % 1.7-9.3 N EOSINOPHIL % (test code = EO%) 0.4 % 0.0-6.0 N BASOPHIL % (test code = BA%) 0.0 % 0.0-2.0 N NEUTROPHIL # (test code = NT#) 4.92 K/mm3 1.8-7.6 N LYMPHOCYTE # (test code = LY#) 1.4 K/mm3 0.6-3.2 N MONOCYTE # (test code = MO#) 0.6 K/mm3 0.3-1.1 N EOSINOPHIL # (test code = EO#) 0.0 K/mm3 0.0-0.4 N BASOPHIL # (test code = BA#) 0.0 K/mm3 0.0-0.1 N MANUAL DIFF REQUIRED (test code = NO DIFF/SCN CRITERIA MDIFF) RBC [id number] 04:50:00 Test Item Value Reference Range Interpretation Comments ANISOCYTOSIS (test code = ANISO) 1+ NONE CBC W/AUTO [id number] 04:49:00 Test Item Value Reference Range Interpretation Comments WHITE BLOOD CELL (test code = 7.0 K/mm3 3.5-11.0 N WBC) RED BLOOD CELL (test code = RBC) 3.43 M/mm3 4.70-6.10 L HEMOGLOBIN (test code = HGB) 9.0 G/DL 10.4-14.9 L HEMATOCRIT (test code = HCT) 27.8 % 31.5-44.1 L MEAN CELL VOLUME (test code = 81.0 Fl 84.5-98.6 L MCV) MEAN CELL HGB (test code = MCH) 26.2 pg 27.0-34.2 L MEAN CELL HGB CONCETRATION (test 32.4 G/DL 31.5-34.0 N code = MCHC) RED CELL DISTRIBUTION WIDTH (test 25.6 SD 11.5-14.5 H code = RDW) PLATELET COUNT (test code = PLT) 175.0 K/mm3 150-450 N MEAN PLATELET VOLUME (test code = 10.90 fL 7.0-10.5 H MPV) NEUTROPHIL % (test code = NT%) 70.4 % 40-76 N LYMPHOCYTE % (test code = LY%) 20.3 % 20.5-51.1 L MONOCYTE % (test code = MO%) 8.9 % 1.7-9.3 N EOSINOPHIL % (test code = EO%) 0.4 % 0.0-6.0 N BASOPHIL % (test code = BA%) 0.0 % 0.0-2.0 N NEUTROPHIL # (test code = NT#) 4.92 K/mm3 1.8-7.6 N LYMPHOCYTE # (test code = LY#) 1.4 K/mm3 0.6-3.2 N MONOCYTE # (test code = MO#) 0.6 K/mm3 0.3-1.1 N EOSINOPHIL # (test code = EO#) 0.0 K/mm3 0.0-0.4 N BASOPHIL # (test code = BA#) 0.0 K/mm3 0.0-0.1 N MANUAL DIFF REQUIRED (test code = NO DIFF/SCN CRITERIA MDIFF) CBC W/AUTO [id number] 04:49:00 Test Item Value Reference Range Interpretation Comments WHITE BLOOD CELL (test code = 7.0 K/mm3 3.5-11.0 N WBC) RED BLOOD CELL (test code = RBC) 3.43 M/mm3 4.70-6.10 L HEMOGLOBIN (test code = HGB) 9.0 G/DL 10.4-14.9 L HEMATOCRIT (test code = HCT) 27.8 % 31.5-44.1 L MEAN CELL VOLUME (test code = 81.0 Fl 84.5-98.6 L MCV) MEAN CELL HGB (test code = MCH) 26.2 pg 27.0-34.2 L MEAN CELL HGB CONCETRATION (test 32.4 G/DL 31.5-34.0 N code = MCHC) RED CELL DISTRIBUTION WIDTH (test 25.6 SD 11.5-14.5 H code = RDW) PLATELET COUNT (test code = PLT) 175.0 K/mm3 150-450 N MEAN PLATELET VOLUME (test code = 10.90 fL 7.0-10.5 H MPV) NEUTROPHIL % (test code = NT%) 70.4 % 40-76 N LYMPHOCYTE % (test code = LY%) 20.3 % 20.5-51.1 L MONOCYTE % (test code = MO%) 8.9 % 1.7-9.3 N EOSINOPHIL % (test code = EO%) 0.4 % 0.0-6.0 N BASOPHIL % (test code = BA%) 0.0 % 0.0-2.0 N NEUTROPHIL # (test code = NT#) 4.92 K/mm3 1.8-7.6 N LYMPHOCYTE # (test code = LY#) 1.4 K/mm3 0.6-3.2 N MONOCYTE # (test code = MO#) 0.6 K/mm3 0.3-1.1 N EOSINOPHIL # (test code = EO#) 0.0 K/mm3 0.0-0.4 N BASOPHIL # (test code = BA#) 0.0 K/mm3 0.0-0.1 N MANUAL DIFF REQUIRED (test code = NO DIFF/SCN CRITERIA MDIFF) COMPREHENSIVE METABOLIC [id number] 04:44:00 Test Item Value Reference Range Interpretation Comments SODIUM (test code = NA) 144 mmol/L 134-147 N POTASSIUM (test code = 3.2 mmol/L 3.4-5.0 L K) CHLORIDE (test code = 117 mmol/L 100-108 H CL) CARBON DIOXIDE (test 18 mmol/L 21-32 L code = CO2) ANION GAP (test code = 9.0 GAP calc 4.0-15.0 N GAP) GLUCOSE (test code = 98 MG/DL 70-110 N GLU) BLOOD UREA NITROGEN 14 MG/DL 7-18 N (test code = BUN) GLOMERULAR FILTRATION >=60 max estimate >60 RATE (test code = GFR) estGFR CREATININE (test code = 0.7 MG/DL 0.6-1.0 N CREAT) TOTAL PROTEIN (test code 5.9 G/DL 6.4-8.2 L = PROT) ALBUMIN (test code = 3.0 G/DL 3.4-5.0 L ALB) GLOBULIN (test code = 2.9 GM/dL GLOB) ALBUMIN/GLOBULIN RATIO 1.0 RATIO 1.2-2.2 L (test code = A/G) CALCIUM (test code = CA) 8.1 MG/DL 8.5-10.1 L BILIRUBIN TOTAL (test 0.50 MG/DL 0.2-1.2 N code = BILT) SGOT/AST (test code = 18 Unit/L 15-37 N AST) SGPT/ALT (test code = 13 Unit/L 12-78 N ALT) ALKALINE PHOSPHATASE 115 Unit/L 45-117 N TOTAL (test code = ALKP) CBC W/AUTO [id number] 04:28:00 Test Item Value Reference Range Interpretation Comments WHITE BLOOD CELL (test code = 7.0 K/mm3 3.5-11.0 N WBC) RED BLOOD CELL (test code = RBC) 3.43 M/mm3 4.70-6.10 L HEMOGLOBIN (test code = HGB) 9.0 G/DL 10.4-14.9 L HEMATOCRIT (test code = HCT) 27.8 % 31.5-44.1 L MEAN CELL VOLUME (test code = 81.0 Fl 84.5-98.6 L MCV) MEAN CELL HGB (test code = MCH) 26.2 pg 27.0-34.2 L MEAN CELL HGB CONCETRATION (test 32.4 G/DL 31.5-34.0 N code = MCHC) RED CELL DISTRIBUTION WIDTH (test 25.6 SD 11.5-14.5 H code = RDW) PLATELET COUNT (test code = PLT) 175.0 K/mm3 150-450 N MEAN PLATELET VOLUME (test code = 10.90 fL 7.0-10.5 H MPV) NEUTROPHIL % (test code = NT%) % 40-76 N LYMPHOCYTE % (test code = LY%) % 20.5-51.1 L MONOCYTE % (test code = MO%) % 1.7-9.3 N EOSINOPHIL % (test code = EO%) % 0.0-6.0 N BASOPHIL % (test code = BA%) % 0.0-2.0 N NEUTROPHIL # (test code = NT#) K/mm3 1.8-7.6 N LYMPHOCYTE # (test code = LY#) K/mm3 0.6-3.2 N MONOCYTE # (test code = MO#) K/mm3 0.3-1.1 N EOSINOPHIL # (test code = EO#) K/mm3 0.0-0.4 N BASOPHIL # (test code = BA#) K/mm3 0.0-0.1 N MANUAL DIFF REQUIRED (test code = DIFF/SCN CRITERIA MDIFF) CBC W/AUTO [id number] 07:09:00 Test Item Value Reference Range Interpretation Comments WHITE BLOOD CELL (test code = 5.4 K/mm3 3.5-11.0 N WBC) RED BLOOD CELL (test code = RBC) 3.39 M/mm3 4.70-6.10 L HEMOGLOBIN (test code = HGB) 8.7 G/DL 10.4-14.9 L HEMATOCRIT (test code = HCT) 28.1 % 31.5-44.1 L MEAN CELL VOLUME (test code = 82.9 Fl 84.5-98.6 L MCV) MEAN CELL HGB (test code = MCH) 25.7 pg 27.0-34.2 L MEAN CELL HGB CONCETRATION (test 31.0 G/DL 31.5-34.0 L code = MCHC) RED CELL DISTRIBUTION WIDTH (test 25.5 SD 11.5-14.5 H code = RDW) PLATELET COUNT (test code = PLT) 157.0 K/mm3 150-450 N MEAN PLATELET VOLUME (test code = 10.60 fL 7.0-10.5 H MPV) NEUTROPHIL % (test code = NT%) 70.8 % 40-76 LYMPHOCYTE % (test code = LY%) 20.6 % 20.5-51.1 N MONOCYTE % (test code = MO%) 7.8 % 1.7-9.3 N EOSINOPHIL % (test code = EO%) 0.6 % 0.0-6.0 N BASOPHIL % (test code = BA%) 0.2 % 0.0-2.0 N NEUTROPHIL # (test code = NT#) 3.83 K/mm3 1.8-7.6 N LYMPHOCYTE # (test code = LY#) 1.1 K/mm3 0.6-3.2 N MONOCYTE # (test code = MO#) 0.4 K/mm3 0.3-1.1 N EOSINOPHIL # (test code = EO#) 0.0 K/mm3 0.0-0.4 N BASOPHIL # (test code = BA#) 0.0 K/mm3 0.0-0.1 N MANUAL DIFF REQUIRED (test code = NO DIFF/SCN CRITERIA MDIFF) CBC W/AUTO [id number] 07:09:00 Test Item Value Reference Range Interpretation Comments WHITE BLOOD CELL (test code = 5.4 K/mm3 3.5-11.0 N WBC) RED BLOOD CELL (test code = RBC) 3.39 M/mm3 4.70-6.10 L HEMOGLOBIN (test code = HGB) 8.7 G/DL 10.4-14.9 L HEMATOCRIT (test code = HCT) 28.1 % 31.5-44.1 L MEAN CELL VOLUME (test code = 82.9 Fl 84.5-98.6 L MCV) MEAN CELL HGB (test code = MCH) 25.7 pg 27.0-34.2 L MEAN CELL HGB CONCETRATION (test 31.0 G/DL 31.5-34.0 L code = MCHC) RED CELL DISTRIBUTION WIDTH (test 25.5 SD 11.5-14.5 H code = RDW) PLATELET COUNT (test code = PLT) 157.0 K/mm3 150-450 N MEAN PLATELET VOLUME (test code = 10.60 fL 7.0-10.5 H MPV) NEUTROPHIL % (test code = NT%) 70.8 % 40-76 LYMPHOCYTE % (test code = LY%) 20.6 % 20.5-51.1 N MONOCYTE % (test code = MO%) 7.8 % 1.7-9.3 N EOSINOPHIL % (test code = EO%) 0.6 % 0.0-6.0 N BASOPHIL % (test code = BA%) 0.2 % 0.0-2.0 N NEUTROPHIL # (test code = NT#) 3.83 K/mm3 1.8-7.6 N LYMPHOCYTE # (test code = LY#) 1.1 K/mm3 0.6-3.2 N MONOCYTE # (test code = MO#) 0.4 K/mm3 0.3-1.1 N EOSINOPHIL # (test code = EO#) 0.0 K/mm3 0.0-0.4 N BASOPHIL # (test code = BA#) 0.0 K/mm3 0.0-0.1 N MANUAL DIFF REQUIRED (test code = NO DIFF/SCN CRITERIA MDIFF) RBC [id number] 07:09:00 Test Item Value Reference Range Interpretation Comments ANISOCYTOSIS (test code = ANISO) TRACE NONE CBC W/AUTO [id number] 07:09:00 Test Item Value Reference Range Interpretation Comments WHITE BLOOD CELL (test code = 5.4 K/mm3 3.5-11.0 N WBC) RED BLOOD CELL (test code = RBC) 3.39 M/mm3 4.70-6.10 L HEMOGLOBIN (test code = HGB) 8.7 G/DL 10.4-14.9 L HEMATOCRIT (test code = HCT) 28.1 % 31.5-44.1 L MEAN CELL VOLUME (test code = 82.9 Fl 84.5-98.6 L MCV) MEAN CELL HGB (test code = MCH) 25.7 pg 27.0-34.2 L MEAN CELL HGB CONCETRATION (test 31.0 G/DL 31.5-34.0 L code = MCHC) RED CELL DISTRIBUTION WIDTH (test 25.5 SD 11.5-14.5 H code = RDW) PLATELET COUNT (test code = PLT) 157.0 K/mm3 150-450 N MEAN PLATELET VOLUME (test code = 10.60 fL 7.0-10.5 H MPV) NEUTROPHIL % (test code = NT%) 70.8 % 40-76 LYMPHOCYTE % (test code = LY%) 20.6 % 20.5-51.1 N MONOCYTE % (test code = MO%) 7.8 % 1.7-9.3 N EOSINOPHIL % (test code = EO%) 0.6 % 0.0-6.0 N BASOPHIL % (test code = BA%) 0.2 % 0.0-2.0 N NEUTROPHIL # (test code = NT#) 3.83 K/mm3 1.8-7.6 N LYMPHOCYTE # (test code = LY#) 1.1 K/mm3 0.6-3.2 N MONOCYTE # (test code = MO#) 0.4 K/mm3 0.3-1.1 N EOSINOPHIL # (test code = EO#) 0.0 K/mm3 0.0-0.4 N BASOPHIL # (test code = BA#) 0.0 K/mm3 0.0-0.1 N MANUAL DIFF REQUIRED (test code = NO DIFF/SCN CRITERIA MDIFF) CBC W/AUTO [id number] 05:40:00 Test Item Value Reference Range Interpretation Comments WHITE BLOOD CELL (test code = 5.4 K/mm3 3.5-11.0 N WBC) RED BLOOD CELL (test code = RBC) 3.39 M/mm3 4.70-6.10 L HEMOGLOBIN (test code = HGB) 8.7 G/DL 10.4-14.9 L HEMATOCRIT (test code = HCT) 28.1 % 31.5-44.1 L MEAN CELL VOLUME (test code = 82.9 Fl 84.5-98.6 L MCV) MEAN CELL HGB (test code = MCH) 25.7 pg 27.0-34.2 L MEAN CELL HGB CONCETRATION (test 31.0 G/DL 31.5-34.0 L code = MCHC) RED CELL DISTRIBUTION WIDTH (test 25.5 SD 11.5-14.5 H code = RDW) PLATELET COUNT (test code = PLT) 157.0 K/mm3 150-450 N MEAN PLATELET VOLUME (test code = 10.60 fL 7.0-10.5 H MPV) NEUTROPHIL % (test code = NT%) % 40-76 LYMPHOCYTE % (test code = LY%) % 20.5-51.1 N MONOCYTE % (test code = MO%) % 1.7-9.3 N EOSINOPHIL % (test code = EO%) % 0.0-6.0 N BASOPHIL % (test code = BA%) % 0.0-2.0 N NEUTROPHIL # (test code = NT#) K/mm3 1.8-7.6 N LYMPHOCYTE # (test code = LY#) K/mm3 0.6-3.2 N MONOCYTE # (test code = MO#) K/mm3 0.3-1.1 N EOSINOPHIL # (test code = EO#) K/mm3 0.0-0.4 N BASOPHIL # (test code = BA#) K/mm3 0.0-0.1 N MANUAL DIFF REQUIRED (test code = DIFF/SCN CRITERIA MDIFF) GLUCOSE BEDSIDE [id number] 05:31:00 Test Item Value Reference Range Interpretation Comments GLUCOSE BEDSIDE TESTING (test code = 87 mg/dL 70-110 N GLUBED) BASIC METABOLIC [id number] 04:37:00 Test Item Value Reference Range Interpretation Comments SODIUM (test code = NA) 148 mmol/L 134-147 H POTASSIUM (test code = 3.9 mmol/L 3.4-5.0 N K) CHLORIDE (test code = 120 mmol/L 100-108 H CL) CARBON DIOXIDE (test 18 mmol/L 21-32 L code = CO2) ANION GAP (test code = 10.0 GAP calc 4.0-15.0 N GAP) GLUCOSE (test code = 92 MG/DL 70-110 N GLU) BLOOD UREA NITROGEN 26 MG/DL 7-18 H (test code = BUN) GLOMERULAR FILTRATION >=60 max estimate >60 RATE (test code = GFR) estGFR CREATININE (test code = 0.9 MG/DL 0.6-1.0 N CREAT) CALCIUM (test code = CA) 7.7 MG/DL 8.5-10.1 L CBC W/AUTO [id number] 12:42:00 Test Item Value Reference Range Interpretation Comments WHITE BLOOD CELL (test code = 9.7 K/mm3 3.5-11.0 N WBC) RED BLOOD CELL (test code = RBC) 3.50 M/mm3 4.70-6.10 L HEMOGLOBIN (test code = HGB) 9.1 G/DL 10.4-14.9 L HEMATOCRIT (test code = HCT) 28.9 % 31.5-44.1 L MEAN CELL VOLUME (test code = 82.6 Fl 84.5-98.6 L MCV) MEAN CELL HGB (test code = MCH) 26.0 pg 27.0-34.2 L MEAN CELL HGB CONCETRATION (test 31.5 G/DL 31.5-34.0 N code = MCHC) RED CELL DISTRIBUTION WIDTH (test 25.5 SD 11.5-14.5 H code = RDW) PLATELET COUNT (test code = PLT) 142.0 K/mm3 150-450 L MEAN PLATELET VOLUME (test code = 9.90 fL 7.0-10.5 N MPV) NEUTROPHIL % (test code = NT%) 83.8 % 40-76 H LYMPHOCYTE % (test code = LY%) 9.3 % 20.5-51.1 L MONOCYTE % (test code = MO%) 6.6 % 1.7-9.3 N EOSINOPHIL % (test code = EO%) 0.2 % 0.0-6.0 N BASOPHIL % (test code = BA%) 0.1 % 0.0-2.0 N NEUTROPHIL # (test code = NT#) 8.15 K/mm3 1.8-7.6 H LYMPHOCYTE # (test code = LY#) 0.9 K/mm3 0.6-3.2 N MONOCYTE # (test code = MO#) 0.6 K/mm3 0.3-1.1 N EOSINOPHIL # (test code = EO#) 0.0 K/mm3 0.0-0.4 N BASOPHIL # (test code = BA#) 0.0 K/mm3 0.0-0.1 N MANUAL DIFF REQUIRED (test code = NO DIFF/SCN CRITERIA MDIFF) CBC W/AUTO [id number] 12:42:00 Test Item Value Reference Range Interpretation Comments WHITE BLOOD CELL (test code = 9.7 K/mm3 3.5-11.0 N WBC) RED BLOOD CELL (test code = RBC) 3.50 M/mm3 4.70-6.10 L HEMOGLOBIN (test code = HGB) 9.1 G/DL 10.4-14.9 L HEMATOCRIT (test code = HCT) 28.9 % 31.5-44.1 L MEAN CELL VOLUME (test code = 82.6 Fl 84.5-98.6 L MCV) MEAN CELL HGB (test code = MCH) 26.0 pg 27.0-34.2 L MEAN CELL HGB CONCETRATION (test 31.5 G/DL 31.5-34.0 N code = MCHC) RED CELL DISTRIBUTION WIDTH (test 25.5 SD 11.5-14.5 H code = RDW) PLATELET COUNT (test code = PLT) 142.0 K/mm3 150-450 L MEAN PLATELET VOLUME (test code = 9.90 fL 7.0-10.5 N MPV) NEUTROPHIL % (test code = NT%) 83.8 % 40-76 H LYMPHOCYTE % (test code = LY%) 9.3 % 20.5-51.1 L MONOCYTE % (test code = MO%) 6.6 % 1.7-9.3 N EOSINOPHIL % (test code = EO%) 0.2 % 0.0-6.0 N BASOPHIL % (test code = BA%) 0.1 % 0.0-2.0 N NEUTROPHIL # (test code = NT#) 8.15 K/mm3 1.8-7.6 H LYMPHOCYTE # (test code = LY#) 0.9 K/mm3 0.6-3.2 N MONOCYTE # (test code = MO#) 0.6 K/mm3 0.3-1.1 N EOSINOPHIL # (test code = EO#) 0.0 K/mm3 0.0-0.4 N BASOPHIL # (test code = BA#) 0.0 K/mm3 0.0-0.1 N MANUAL DIFF REQUIRED (test code = NO DIFF/SCN CRITERIA MDIFF) RBC [id number] 12:42:00 Test Item Value Reference Range Interpretation Comments ANISOCYTOSIS (test code = 1+ NONE ANISO) PLATELET ESTIMATE (test ADEQUATE THOUSAND ADEQUATE code = PLTEST) PLATELET MORPHOLOGY (test NORMAL code = PLTMORPH) CBC W/AUTO [id number] 12:42:00 Test Item Value Reference Range Interpretation Comments WHITE BLOOD CELL (test code = 9.7 K/mm3 3.5-11.0 N WBC) RED BLOOD CELL (test code = RBC) 3.50 M/mm3 4.70-6.10 L HEMOGLOBIN (test code = HGB) 9.1 G/DL 10.4-14.9 L HEMATOCRIT (test code = HCT) 28.9 % 31.5-44.1 L MEAN CELL VOLUME (test code = 82.6 Fl 84.5-98.6 L MCV) MEAN CELL HGB (test code = MCH) 26.0 pg 27.0-34.2 L MEAN CELL HGB CONCETRATION (test 31.5 G/DL 31.5-34.0 N code = MCHC) RED CELL DISTRIBUTION WIDTH (test 25.5 SD 11.5-14.5 H code = RDW) PLATELET COUNT (test code = PLT) 142.0 K/mm3 150-450 L MEAN PLATELET VOLUME (test code = 9.90 fL 7.0-10.5 N MPV) NEUTROPHIL % (test code = NT%) 83.8 % 40-76 H LYMPHOCYTE % (test code = LY%) 9.3 % 20.5-51.1 L MONOCYTE % (test code = MO%) 6.6 % 1.7-9.3 N EOSINOPHIL % (test code = EO%) 0.2 % 0.0-6.0 N BASOPHIL % (test code = BA%) 0.1 % 0.0-2.0 N NEUTROPHIL # (test code = NT#) 8.15 K/mm3 1.8-7.6 H LYMPHOCYTE # (test code = LY#) 0.9 K/mm3 0.6-3.2 N MONOCYTE # (test code = MO#) 0.6 K/mm3 0.3-1.1 N EOSINOPHIL # (test code = EO#) 0.0 K/mm3 0.0-0.4 N BASOPHIL # (test code = BA#) 0.0 K/mm3 0.0-0.1 N MANUAL DIFF REQUIRED (test code = NO DIFF/SCN CRITERIA MDIFF) BASIC METABOLIC [id number] 09:45:00 Test Item Value Reference Range Interpretation Comments SODIUM (test code = NA) 148 mmol/L 134-147 H POTASSIUM (test code = K) 4.1 mmol/L 3.4-5.0 N CHLORIDE (test code = CL) 121 mmol/L 100-108 H CARBON DIOXIDE (test code = CO2) 18 mmol/L 21-32 L ANION GAP (test code = GAP) 9.0 GAP calc 4.0-15.0 N GLUCOSE (test code = GLU) 123 MG/DL 70-110 H BLOOD UREA NITROGEN (test code = 48 MG/DL 7-18 H BUN) GLOMERULAR FILTRATION RATE (test 48 estGFR >60 L code = GFR) CREATININE (test code = CREAT) 1.2 MG/DL 0.6-1.0 H CALCIUM (test code = CA) 7.7 MG/DL 8.5-10.1 L CBC W/AUTO [id number] 09:40:00 Test Item Value Reference Range Interpretation Comments WHITE BLOOD CELL (test code = 9.7 K/mm3 3.5-11.0 N WBC) RED BLOOD CELL (test code = RBC) 3.50 M/mm3 4.70-6.10 L HEMOGLOBIN (test code = HGB) 9.1 G/DL 10.4-14.9 L HEMATOCRIT (test code = HCT) 28.9 % 31.5-44.1 L MEAN CELL VOLUME (test code = 82.6 Fl 84.5-98.6 L MCV) MEAN CELL HGB (test code = MCH) 26.0 pg 27.0-34.2 L MEAN CELL HGB CONCETRATION (test 31.5 G/DL 31.5-34.0 N code = MCHC) RED CELL DISTRIBUTION WIDTH (test 25.5 SD 11.5-14.5 H code = RDW) PLATELET COUNT (test code = PLT) 142.0 K/mm3 150-450 L MEAN PLATELET VOLUME (test code = 9.90 fL 7.0-10.5 N MPV) NEUTROPHIL % (test code = NT%) % 40-76 H LYMPHOCYTE % (test code = LY%) % 20.5-51.1 L MONOCYTE % (test code = MO%) % 1.7-9.3 N EOSINOPHIL % (test code = EO%) % 0.0-6.0 N BASOPHIL % (test code = BA%) % 0.0-2.0 N NEUTROPHIL # (test code = NT#) K/mm3 1.8-7.6 H LYMPHOCYTE # (test code = LY#) K/mm3 0.6-3.2 N MONOCYTE # (test code = MO#) K/mm3 0.3-1.1 N EOSINOPHIL # (test code = EO#) K/mm3 0.0-0.4 N BASOPHIL # (test code = BA#) K/mm3 0.0-0.1 N MANUAL DIFF REQUIRED (test code = DIFF/SCN CRITERIA MDIFF) BASIC METABOLIC [id number] 03:59:00 Test Item Value Reference Range Interpretation Comments SODIUM (test code = NA) 146 mmol/L 134-147 N POTASSIUM (test code = K) 3.6 mmol/L 3.4-5.0 N CHLORIDE (test code = CL) 119 mmol/L 100-108 H CARBON DIOXIDE (test code = 15 mmol/L 21-32 L CO2) ANION GAP (test code = GAP) 12.0 GAP calc 4.0-15.0 N GLUCOSE (test code = GLU) 117 MG/DL 70-110 H BLOOD UREA NITROGEN (test code 57 MG/DL 7-18 H = BUN) GLOMERULAR FILTRATION RATE 40 estGFR >60 L (test code = GFR) CREATININE (test code = CREAT) 1.4 MG/DL 0.6-1.0 H CALCIUM (test code = CA) 8.3 MG/DL 8.5-10.1 L HEPATIC FUNCTION [id number] 03:59:00 Test Item Value Reference Range Interpretation Comments TOTAL PROTEIN (test code = PROT) 6.1 G/DL 6.4-8.2 L ALBUMIN (test code = ALB) 3.0 G/DL 3.4-5.0 L BILIRUBIN TOTAL (test code = BILT) 0.60 MG/DL 0.2-1.2 N BILIRUBIN DIRECT (test code = 0.10 MG/DL 0.00-0.30 N BILD) BILIRUBIN INDIRECT (test code = 0.50 MG/DL 0.2-1.2 N BILIND) SGOT/AST (test code = AST) 18 Unit/L 15-37 N SGPT/ALT (test code = ALT) < 6 Unit/L 12-78 L ALKALINE PHOSPHATASE TOTAL (test 125 Unit/L 45-117 H code = ALKP) [id number] 03:59:00 Test Item Value Reference Range Interpretation Comments LIPASE (test code = LIP) 202 Unit/L 114-286 N PROTHROMBIN [id number] 03:45:00 Test Item Value Reference Range Interpretation Comments PT PATIENT (test code = PTP) 11.3 SECONDS 9.3-12.9 N INTERNATIONAL NORMAL RATIO 0.98 INR Unit 0.8-1.2 N (test code = INR) CBC W/O [id number] 03:30:00 Test Item Value Reference Range Interpretation Comments WHITE BLOOD CELL (test code = 8.6 K/mm3 3.5-11.0 N WBC) RED BLOOD CELL (test code = RBC) 3.29 M/mm3 4.70-6.10 L HEMOGLOBIN (test code = HGB) 8.0 G/DL 10.4-14.9 L HEMATOCRIT (test code = HCT) 26.7 % 31.5-44.1 L MEAN CELL VOLUME (test code = 81.2 Fl 84.5-98.6 L MCV) MEAN CELL HGB (test code = MCH) 24.3 pg 27.0-34.2 L MEAN CELL HGB CONCETRATION (test 30.0 G/DL 31.5-34.0 L code = MCHC) RED CELL DISTRIBUTION WIDTH (test 27.1 SD 11.5-14.5 H code = RDW) PLATELET COUNT (test code = PLT) 188.0 K/mm3 150-450 N MEAN PLATELET VOLUME (test code = 11.30 fL 7.0-10.5 H MPV) BASIC METABOLIC [id number] 06:07:00 Test Item Value Reference Range Interpretation Comments GLUCOSE (test code = 06D) 95 mg/dL 75-100 SODIUM (test code = 01A) 147 mmol/L 136-145 H POTASSIUM (test code = 01B) 3.9 mmol/L 3.6-5.1 CHLORIDE (test code = 04A) 121 mmol/L 98-107 H CO2 (test code = 02A) 17 mmol/L 22-32 L ANION GAP (test code = ANG) 12.9 mmol/L BUN (test code = 05D) 13 mg/dL 7-18 CREATININE (test code = 03E) 1.0 mg/dL 0.4-1.1 BUN/CREA (test code = BCR) 13 12-20 CALCIUM (test code = 09D) 8.2 mg/dL 8.3-9.5 L [id number] 06:42:00 Test Item Value Reference Range Interpretation Comments LITHIUM (test code = 0.40 mmol/L 0.60-1.50 L LI) LIH (test code = LIH) LIT HIUM THERAPEUTIC RANGE Acute ivan: 1.0-1.5 mmol/L Anish-term control 0.6-1.2 mmol/L Toxic level: > 2.0 mmol/L BASIC METABOLIC [id number] 06:37:00 Test Item Value Reference Range Interpretation Comments GLUCOSE (test code = 06D) 96 mg/dL 75-100 SODIUM (test code = 01A) 147 mmol/L 136-145 H POTASSIUM (test code = 01B) 3.1 mmol/L 3.6-5.1 L CHLORIDE (test code = 04A) 120 mmol/L 98-107 H CO2 (test code = 02A) 18 mmol/L 22-32 L ANION GAP (test code = ANG) 12.1 mmol/L BUN (test code = 05D) 7 mg/dL 7-18 CREATININE (test code = 03E) 1.0 mg/dL 0.4-1.1 BUN/CREA (test code = BCR) 7 12-20 L CALCIUM (test code = 09D) 7.7 mg/dL 8.3-9.5 L [id number] 06:33:00 Test Item Value Reference Range Interpretation Comments MAGNESIUM (test code = 48A) 2.4 mg/dL 1.8-2.4 CBC (INCLUDES AUTOMATED DIFFERENTIAL)2019-03-01 06:25:00 Test Item Value Reference Range Interpretation Comments WBC (test code = WBC) 6.7 10\\S\\3/uL 4.5-11.0 RBC (test code = RBC) 4.53 10\\S\\6/uL 3.80-5.80 HGB (test code = HBG) 10.4 g/dL 12.0-15.5 L HCT (test code = HCT) 33.2 % 35.0-44.0 L MCV (test code = MCV) 73.3 fL 81.0-99.0 L MCH (test code = MCH) 23.0 pg 27.0-31.0 L MCHC (test code = MCHC) 31.3 g/dL 32.0-36.0 L RDW (test code = RDW) 19.6 % 11.5-14.5 H PLT (test code = PLT) 238 10\\S\\3/uL 130-400 MPV (test code = MPV) 10.7 fL 9.4-12.4 NEUTROP # (test code = NE#) 3.8 10\\S\\3/uL 1.6-8.0 LYMPH # (test code = LY#) 2.1 10\\S\\3/uL 1.1-3.5 MONOCYTE # (test code = MO#) 0.6 10\\S\\3/uL 0.0-1.1 EOSINOPH # (test code = EO#) 0.2 10\\S\\3/uL 0.0-0.7 BASOPHIL # (test code = BA#) 0.0 10\\S\\3/uL 0.0-0.3 IG # (test code = IG#) 0.01 10\\S\\3/uL 0.00-0.06 NRBC # (test code = NRBC#) 0.00 10\\S\\3/uL 0.00-0.01 NEUTROPH % (test code = NE%) 55.9 % 35.0-73.0 LYMPH % (test code = LY%) 31.5 % 20.0-55.0 MONO % (test code = MO%) 8.5 % 2.5-10.0 EOSINOPH % (test code = EO%) 3.6 % 0.0-5.0 BASOPHIL % (test code = BA%) 0.4 % 0.0-2.0 IG % (test code = IG%) 0.1 % 0.0-0.8 NRBC% (test code = NRBC%) 0.0 % 0.0-0.2 MANDIFF (test code = MDIFF) NO NO RBC MORPH (test code = RBCMOR) NORMAL [id number] 07:09:00 Test Item Value Reference Range Interpretation Comments FERRITIN (test code = A19) 29.2 ng/mL 8.0-252.0 IRON/TIBC/IRON [id number] 07:09:00 Test Item Value Reference Range Interpretation Comments IRON (test code = 46B) 18 ug/dL 50-170 L TIBC (test code = 79B) 261 ug/dL 250-400 FE% SAT (test code = ISAT) 6.9 % 15.0-50.0 L BASIC METABOLIC [id number] 06:39:00 Test Item Value Reference Range Interpretation Comments GLUCOSE (test code = 06D) 95 mg/dL 75-100 SODIUM (test code = 01A) 145 mmol/L 136-145 POTASSIUM (test code = 01B) 2.5 mmol/L 3.6-5.1 LL CHLORIDE (test code = 04A) 119 mmol/L 98-107 H CO2 (test code = 02A) 19 mmol/L 22-32 L ANION GAP (test code = ANG) 9.5 mmol/L BUN (test code = 05D) 8 mg/dL 7-18 CREATININE (test code = 03E) 1.1 mg/dL 0.4-1.1 BUN/CREA (test code = BCR) 7 12-20 L CALCIUM (test code = 09D) 7.3 mg/dL 8.3-9.5 L THYROID PANEL/SCREEN (TSH)2019-02-28 06:32:00 Test Item Value Reference Range Interpretation Comments TSH (test code = A57) 0.628 uIU/mL 0.358-3.740 [id number] 06:20:00 Test Item Value Reference Range Interpretation Comments MAGNESIUM (test code = 48A) 1.6 mg/dL 1.8-2.4 L CBC (INCLUDES AUTOMATED DIFFERENTIAL)2019-02-28 06:05:00 Test Item Value Reference Range Interpretation Comments WBC (test code = WBC) 7.0 10\\S\\3/uL 4.5-11.0 RBC (test code = RBC) 3.34 10\\S\\6/uL 3.80-5.80 L HGB (test code = HBG) 6.9 g/dL 12.0-15.5 LL HCT (test code = HCT) 23.3 % 35.0-44.0 LL MCV (test code = MCV) 69.8 fL 81.0-99.0 L MCH (test code = MCH) 20.7 pg 27.0-31.0 L MCHC (test code = MCHC) 29.6 g/dL 32.0-36.0 L RDW (test code = RDW) 18.6 % 11.5-14.5 H PLT (test code = PLT) 250 10\\S\\3/uL 130-400 MPV (test code = MPV) 11.1 fL 9.4-12.4 NEUTROP # (test code = NE#) 4.5 10\\S\\3/uL 1.6-8.0 LYMPH # (test code = LY#) 1.7 10\\S\\3/uL 1.1-3.5 MONOCYTE # (test code = MO#) 0.5 10\\S\\3/uL 0.0-1.1 EOSINOPH # (test code = EO#) 0.3 10\\S\\3/uL 0.0-0.7 BASOPHIL # (test code = BA#) 0.0 10\\S\\3/uL 0.0-0.3 IG # (test code = IG#) 0.03 10\\S\\3/uL 0.00-0.06 NRBC # (test code = NRBC#) 0.00 10\\S\\3/uL 0.00-0.01 NEUTROPH % (test code = NE%) 63.6 % 35.0-73.0 LYMPH % (test code = LY%) 24.4 % 20.0-55.0 MONO % (test code = MO%) 6.5 % 2.5-10.0 EOSINOPH % (test code = EO%) 4.8 % 0.0-5.0 BASOPHIL % (test code = BA%) 0.3 % 0.0-2.0 IG % (test code = IG%) 0.4 % 0.0-0.8 NRBC% (test code = NRBC%) 0.0 % 0.0-0.2 MANDIFF (test code = MDIFF) NO NO RBC MORPH (test code = RBCMOR) NORMAL [id number] 21:03:00 Test Item Value Reference Range Interpretation Comments LITHIUM (test code = 1.40 mmol/L 0.60-1.50 LI) LIH (test code = LIH) LIT HIUM THERAPEUTIC RANGE Acute ivan: 1.0-1.5 mmol/L Anish-term control 0.6-1.2 mmol/L Toxic level: > 2.0 mmol/L [id number] 12:11:00 Test Item Value Reference Range Interpretation Comments LITHIUM (test code = <0.20 mmol/L 0.60-1.50 L LI) LIH (test code = LIH) LIT HIUM THERAPEUTIC RANGE Acute ivan: 1.0-1.5 mmol/L Anish-term control 0.6-1.2 mmol/L Toxic level: > 2.0 mmol/L DRUGS OF [id number] 10:24:00 Test Item Value Reference Range Interpretation Comments DRUG SCRN (test code = URINE DRUG HDOA) SCREEN This is an unconfirmed screening result and should not be used for non-medical purposes CANNABINOD (test code Negative NEGATIVE = 88C) AMPHETAMINE (test code Negative NEGATIVE = 84A) BENZODIAZP (test code Negative NEGATIVE = 86A) BARBITURAT (test code Negative NEGATIVE = 85A) OPIATES (test code = Negative NEGATIVE 92B) COCAINE (test code = Negative NEGATIVE 87A) PHENCYCLID (test code Negative NEGATIVE = 66A) METHADONE (test code = Negative NEGATIVE 64A) DOAH (test code = DOAH.) URINE DRUG SCREEN Cut-off values are as follows: Cannabinoids 50 ng/mL Cocaine 300 ng/mL Amphetamines 1000 ng/mL Phencyclidine 25 ng/mL Benzodiazepines 200 ng.mL Methadone 300 ng/mL Barbiturates 200 ng/mL Opiates 2000 ng/mL URINALYSIS WITH [id number] 10:24:00 Test Item Value Reference Range Interpretation Comments COLOR (test code = COLU) YELLOW YELLOW CLARITY (test code = CLA) CLEAR CLEAR GLUCOSE UR (test code = UA GLUCOSE) NEGATIVE NEGATIVE BILI UR (test code = BILE) NEGATIVE NEGATIVE KETONES UR (test code = GALO) NEGATIVE NEGATIVE SP GRAVITY (test code = SPGR) 1.007 1.005-1.030 PH UR (test code = PH) 7.0 4.5-8.0 PROTEIN UR (test code = PU) TRACE NEGATIVE A UROBIL UR (test code = UROQ) 0.2 EU/dL 0.2-1.0 NITRITE UR (test code = NITRITE) NEGATIVE NEGATIVE BLOOD UR (test code = UA BLOOD) NEGATIVE NEGATIVE LEUK ES UR (test code = LEUK) NEGATIVE NEGATIVE WBC UR (test code = UWBC) 0 /HPF 0-5 RBC UR (test code = URBC) 0 /HPF 0-2 EPITH UR (test code = UEPC) NONE /LPF FEW A BACTERIA UR (test code = UBACT) NONE /HPF NONE CAST UR (test code = CAST) /LPF NONE CRYSTAL UR (test code = CRYU) / LPF NONE MUCUS UR (test code = MUC) / HPF NONE AMORPH UR (test code = TARAS) / HPF NONE TRICH UR (test code = UTRICH) /HPF NONE YEAST UR (test code = UY) /HPF NONE SPERM UR (test code = USPERM) /HPF NONE LIVER [id number] 09:58:00 Test Item Value Reference Range Interpretation Comments BILI TOTAL (test code = 11A) 0.3 mg/dL 0.2-1.0 BILI DIRCT (test code = 12A) 0.1 mg/dL 0.0-0.2 BILI INDIR (test code = BILII) 0.2 mg/dL <=0.8 PROTEIN (test code = 07D) 6.9 g/dL 6.4-8.2 ALBUMIN (test code = 08D) 3.5 g/dL 3.5-4.8 GLOBULIN (test code = GLB) 3.4 g/dL 1.5-3.8 ALB/GLOB (test code = AGRR) 1.0 1.0-2.6 ALK PHOS (test code = 35A) 186 IU/L 42-121 H AST (test code = 30A) 25 IU/L <=42 ALT (test code = 31A) 6 IU/L <=78 BASIC METABOLIC [id number] 09:57:00 Test Item Value Reference Range Interpretation Comments GLUCOSE (test code = 06D) 86 mg/dL 75-100 SODIUM (test code = 01A) 149 mmol/L 136-145 H POTASSIUM (test code = 01B) 3.2 mmol/L 3.6-5.1 L CHLORIDE (test code = 04A) 118 mmol/L 98-107 H CO2 (test code = 02A) 19 mmol/L 22-32 L ANION GAP (test code = ANG) 15.2 mmol/L BUN (test code = 05D) 16 mg/dL 7-18 CREATININE (test code = 03E) 2.1 mg/dL 0.4-1.1 H BUN/CREA (test code = BCR) 8 12-20 L CALCIUM (test code = 09D) 8.9 mg/dL 8.3-9.5 [id number] 09:56:00 Test Item Value Reference Range Interpretation Comments ACETAMINPH (test code = 94M) <2.0 ug/mL 10.0-30.0 L ALCOHOL BLOOD (ETOH)2019-02-27 09:53:00 Test Item Value Reference Range Interpretation Comments ETOH (test code = HALC) ETHANOL The result is to be used only for medical purposes ALCOHOL (test code = <10 mg/dL <=10 56A) AMMONIA [id number] 09:52:00 Test Item Value Reference Range Interpretation Comments AMMONIA (test code = 54A) 11 umol/L 11-32 [id number] 09:51:00 Test Item Value Reference Range Interpretation Comments SALICYLATE (test code = 94B) <1.7 mg/dL 2.8-20.0 L CBC (INCLUDES AUTOMATED DIFFERENTIAL)2019-02-27 09:39:00 Test Item Value Reference Range Interpretation Comments WBC (test code = WBC) 11.8 10\\S\\3/uL 4.5-11.0 H RBC (test code = RBC) 3.80 10\\S\\6/uL 3.80-5.80 HGB (test code = HBG) 8.0 g/dL 12.0-15.5 L HCT (test code = HCT) 27.3 % 35.0-44.0 L MCV (test code = MCV) 71.8 fL 81.0-99.0 L MCH (test code = MCH) 21.1 pg 27.0-31.0 L MCHC (test code = MCHC) 29.3 g/dL 32.0-36.0 L RDW (test code = RDW) 18.7 % 11.5-14.5 H PLT (test code = PLT) 279 10\\S\\3/uL 130-400 MPV (test code = MPV) 10.9 fL 9.4-12.4 NEUTROP # (test code = NE#) 9.7 10\\S\\3/uL 1.6-8.0 H LYMPH # (test code = LY#) 1.2 10\\S\\3/uL 1.1-3.5 MONOCYTE # (test code = MO#) 0.7 10\\S\\3/uL 0.0-1.1 EOSINOPH # (test code = EO#) 0.2 10\\S\\3/uL 0.0-0.7 BASOPHIL # (test code = BA#) 0.0 10\\S\\3/uL 0.0-0.3 IG # (test code = IG#) 0.06 10\\S\\3/uL 0.00-0.06 NRBC # (test code = NRBC#) 0.00 10\\S\\3/uL 0.00-0.01 NEUTROPH % (test code = NE%) 82.4 % 35.0-73.0 H LYMPH % (test code = LY%) 9.7 % 20.0-55.0 L MONO % (test code = MO%) 5.9 % 2.5-10.0 EOSINOPH % (test code = EO%) 1.3 % 0.0-5.0 BASOPHIL % (test code = BA%) 0.2 % 0.0-2.0 IG % (test code = IG%) 0.5 % 0.0-0.8 NRBC% (test code = NRBC%) 0.0 % 0.0-0.2 MANDIFF (test code = MDIFF) NO NO RBC MORPH (test code = RBCMOR) NORMAL CT HEAD W/O [id number] 09:01:48CT Brain without contrast.Location code:[id number] HISTORY: [id number]: Restlessness and agitationComparison: NoneTechnique: Routine unenhanced CT brain was performed and submitted in 5mm axialimages. One or more of the following dose reduction techniques were used:Automated exposure control, adjustment of the mA and or KV according to patientsize, and/or utilization of iterative reconstruction technique. DLP: 823mGy-cm.Findings:There is no acute intracranial hemorrhage or extra-axial collection. There isno hydrocephalus, midline shift, or space occupying mass. There is generalized volume loss with compensatory enlargement of the corticalsulci and cerebral ventricles. Mild periventricular low attenuation isconsistent with chronic small vessel ischemic changes. Penny-white matterdifferentiation is otherwise normal with no definite CT evidence of an acuteinfarct. Focal extra-axial calcification in the left high parietal regionperipherally measures 14 x 9 mm without surrounding edema and likelyrepres enting calcified meningioma.The cranial vault and skull base are intact. The paranasal sinuses and mastoidair cells are well-aerated.IMPRESSION: Mild chronic small vessel ischemic changes with otherwise no acute intracranialabnormality. Likely calcified meningioma without mass effect or edema in theleft high parietal region.CBC W/AUTO [id number] 05:28:00 Test Item Value Reference Range Interpretation Comments WHITE BLOOD CELL (test code = 5.9 K/mm3 3.5-11.0 N WBC) RED BLOOD CELL (test code = RBC) 3.73 M/mm3 4.70-6.10 L HEMOGLOBIN (test code = HGB) 7.9 G/DL 10.4-14.9 L HEMATOCRIT (test code = HCT) 26.1 % 31.5-44.1 L MEAN CELL VOLUME (test code = 70.0 Fl 84.5-98.6 L MCV) MEAN CELL HGB (test code = MCH) 21.2 pg 27.0-34.2 L MEAN CELL HGB CONCETRATION (test 30.3 G/DL 31.5-34.0 L code = MCHC) RED CELL DISTRIBUTION WIDTH (test 18.7 SD 11.5-14.5 H code = RDW) PLATELET COUNT (test code = PLT) 309.0 K/mm3 150-450 N MEAN PLATELET VOLUME (test code = 11.90 fL 7.0-10.5 H MPV) NEUTROPHIL % (test code = NT%) 60.0 % 40-76 N LYMPHOCYTE % (test code = LY%) 26.1 % 20.5-51.1 N MONOCYTE % (test code = MO%) 10.1 % 1.7-9.3 H EOSINOPHIL % (test code = EO%) 3.6 % 0.0-6.0 N BASOPHIL % (test code = BA%) 0.2 % 0.0-2.0 N NEUTROPHIL # (test code = NT#) 3.52 K/mm3 1.8-7.6 N LYMPHOCYTE # (test code = LY#) 1.5 K/mm3 0.6-3.2 N MONOCYTE # (test code = MO#) 0.6 K/mm3 0.3-1.1 N EOSINOPHIL # (test code = EO#) 0.2 K/mm3 0.0-0.4 N BASOPHIL # (test code = BA#) 0.0 K/mm3 0.0-0.1 N MANUAL DIFF REQUIRED (test code = NO DIFF/SCN CRITERIA MDIFF) CBC W/AUTO [id number] 05:28:00 Test Item Value Reference Range Interpretation Comments WHITE BLOOD CELL (test code = 5.9 K/mm3 3.5-11.0 N WBC) RED BLOOD CELL (test code = RBC) 3.73 M/mm3 4.70-6.10 L HEMOGLOBIN (test code = HGB) 7.9 G/DL 10.4-14.9 L HEMATOCRIT (test code = HCT) 26.1 % 31.5-44.1 L MEAN CELL VOLUME (test code = 70.0 Fl 84.5-98.6 L MCV) MEAN CELL HGB (test code = MCH) 21.2 pg 27.0-34.2 L MEAN CELL HGB CONCETRATION (test 30.3 G/DL 31.5-34.0 L code = MCHC) RED CELL DISTRIBUTION WIDTH (test 18.7 SD 11.5-14.5 H code = RDW) PLATELET COUNT (test code = PLT) 309.0 K/mm3 150-450 N MEAN PLATELET VOLUME (test code = 11.90 fL 7.0-10.5 H MPV) NEUTROPHIL % (test code = NT%) 60.0 % 40-76 N LYMPHOCYTE % (test code = LY%) 26.1 % 20.5-51.1 N MONOCYTE % (test code = MO%) 10.1 % 1.7-9.3 H EOSINOPHIL % (test code = EO%) 3.6 % 0.0-6.0 N BASOPHIL % (test code = BA%) 0.2 % 0.0-2.0 N NEUTROPHIL # (test code = NT#) 3.52 K/mm3 1.8-7.6 N LYMPHOCYTE # (test code = LY#) 1.5 K/mm3 0.6-3.2 N MONOCYTE # (test code = MO#) 0.6 K/mm3 0.3-1.1 N EOSINOPHIL # (test code = EO#) 0.2 K/mm3 0.0-0.4 N BASOPHIL # (test code = BA#) 0.0 K/mm3 0.0-0.1 N MANUAL DIFF REQUIRED (test code = NO DIFF/SCN CRITERIA MDIFF) RBC [id number] 05:28:00 Test Item Value Reference Range Interpretation Comments ANISOCYTOSIS (test code = TRACE NONE ANISO) ELLIPTOCYTES (test code = TRACE ON SCAN NONE ELL) PLATELET ESTIMATE (test ADEQUATE THOUSAND ADEQUATE code = PLTEST) PLATELET MORPHOLOGY (test NORMAL code = PLTMORPH) CBC W/AUTO [id number] 05:28:00 Test Item Value Reference Range Interpretation Comments WHITE BLOOD CELL (test code = 5.9 K/mm3 3.5-11.0 N WBC) RED BLOOD CELL (test code = RBC) 3.73 M/mm3 4.70-6.10 L HEMOGLOBIN (test code = HGB) 7.9 G/DL 10.4-14.9 L HEMATOCRIT (test code = HCT) 26.1 % 31.5-44.1 L MEAN CELL VOLUME (test code = 70.0 Fl 84.5-98.6 L MCV) MEAN CELL HGB (test code = MCH) 21.2 pg 27.0-34.2 L MEAN CELL HGB CONCETRATION (test 30.3 G/DL 31.5-34.0 L code = MCHC) RED CELL DISTRIBUTION WIDTH (test 18.7 SD 11.5-14.5 H code = RDW) PLATELET COUNT (test code = PLT) 309.0 K/mm3 150-450 N MEAN PLATELET VOLUME (test code = 11.90 fL 7.0-10.5 H MPV) NEUTROPHIL % (test code = NT%) 60.0 % 40-76 N LYMPHOCYTE % (test code = LY%) 26.1 % 20.5-51.1 N MONOCYTE % (test code = MO%) 10.1 % 1.7-9.3 H EOSINOPHIL % (test code = EO%) 3.6 % 0.0-6.0 N BASOPHIL % (test code = BA%) 0.2 % 0.0-2.0 N NEUTROPHIL # (test code = NT#) 3.52 K/mm3 1.8-7.6 N LYMPHOCYTE # (test code = LY#) 1.5 K/mm3 0.6-3.2 N MONOCYTE # (test code = MO#) 0.6 K/mm3 0.3-1.1 N EOSINOPHIL # (test code = EO#) 0.2 K/mm3 0.0-0.4 N BASOPHIL # (test code = BA#) 0.0 K/mm3 0.0-0.1 N MANUAL DIFF REQUIRED (test code = NO DIFF/SCN CRITERIA MDIFF) BASIC METABOLIC [id number] 05:19:00 Test Item Value Reference Range Interpretation Comments SODIUM (test code = NA) 145 mmol/L 134-147 N POTASSIUM (test code = 2.8 mmol/L 3.4-5.0 LL K) CHLORIDE (test code = 117 mmol/L 100-108 H CL) CARBON DIOXIDE (test 19 mmol/L 21-32 L code = CO2) ANION GAP (test code = 9.0 GAP calc 4.0-15.0 N GAP) GLUCOSE (test code = 88 MG/DL 70-110 N GLU) BLOOD UREA NITROGEN 6 MG/DL 7-18 L (test code = BUN) GLOMERULAR FILTRATION >=60 max estimate >60 RATE (test code = GFR) estGFR CREATININE (test code = 0.6 MG/DL 0.6-1.0 N CREAT) CALCIUM (test code = CA) 7.9 MG/DL 8.5-10.1 L [id number] 05:19:00 Test Item Value Reference Range Interpretation Comments MAGNESIUM (test code = MAG) 1.9 MG/DL 1.8-2.4 N CBC W/AUTO [id number] 04:53:00 Test Item Value Reference Range Interpretation Comments WHITE BLOOD CELL (test code = 5.9 K/mm3 3.5-11.0 N WBC) RED BLOOD CELL (test code = RBC) 3.73 M/mm3 4.70-6.10 L HEMOGLOBIN (test code = HGB) 7.9 G/DL 10.4-14.9 L HEMATOCRIT (test code = HCT) 26.1 % 31.5-44.1 L MEAN CELL VOLUME (test code = 70.0 Fl 84.5-98.6 L MCV) MEAN CELL HGB (test code = MCH) 21.2 pg 27.0-34.2 L MEAN CELL HGB CONCETRATION (test 30.3 G/DL 31.5-34.0 L code = MCHC) RED CELL DISTRIBUTION WIDTH (test 18.7 SD 11.5-14.5 H code = RDW) PLATELET COUNT (test code = PLT) 309.0 K/mm3 150-450 N MEAN PLATELET VOLUME (test code = 11.90 fL 7.0-10.5 H MPV) NEUTROPHIL % (test code = NT%) % 40-76 N LYMPHOCYTE % (test code = LY%) % 20.5-51.1 N MONOCYTE % (test code = MO%) % 1.7-9.3 H EOSINOPHIL % (test code = EO%) % 0.0-6.0 N BASOPHIL % (test code = BA%) % 0.0-2.0 N NEUTROPHIL # (test code = NT#) K/mm3 1.8-7.6 N LYMPHOCYTE # (test code = LY#) K/mm3 0.6-3.2 N MONOCYTE # (test code = MO#) K/mm3 0.3-1.1 N EOSINOPHIL # (test code = EO#) K/mm3 0.0-0.4 N BASOPHIL # (test code = BA#) K/mm3 0.0-0.1 N MANUAL DIFF REQUIRED (test code = DIFF/SCN CRITERIA MDIFF) CBC W/AUTO [id number] 06:39:00 Test Item Value Reference Range Interpretation Comments WHITE BLOOD CELL (test code = 5.8 K/mm3 3.5-11.0 N WBC) RED BLOOD CELL (test code = RBC) 3.70 M/mm3 4.70-6.10 L HEMOGLOBIN (test code = HGB) 7.8 G/DL 10.4-14.9 L HEMATOCRIT (test code = HCT) 26.3 % 31.5-44.1 L MEAN CELL VOLUME (test code = 71.1 Fl 84.5-98.6 L MCV) MEAN CELL HGB (test code = MCH) 21.1 pg 27.0-34.2 L MEAN CELL HGB CONCETRATION (test 29.7 G/DL 31.5-34.0 L code = MCHC) RED CELL DISTRIBUTION WIDTH 18.8 SD 11.5-14.5 H (test code = RDW) PLATELET COUNT (test code = PLT) 314.0 K/mm3 150-450 N MANUAL DIFF REQUIRED (test code YES DIFF/SCN CRITERIA = MDIFF) WBC [id number] 06:39:00 Test Item Value Reference Range Interpretation Comments SEGMENTED NEUTROPHILS (test 64 % 40-75 N code = SEG) LYMPHOCYTE (test code = 26 % 18.7-40.6 N LYMPH) MONOCYTE (test code = MON) 8 % 3.8-11.4 N EOSINOPHIL (test code = 2 % 0.0-4.1 N EOS) HYPOCHROMIA (test code = 1+ ON SCAN NONE HYPO) POIKILOCYTOSIS (test code = 1+ ON SCAN NONE POIK) ANISOCYTOSIS (test code = 1+ NONE ANISO) MICROCYTOSIS (test code = 1+ ON SCAN NONE MICR) TARGET CELLS (test code = 1+ ON SCAN NONE TGT) TEAR DROP CELLS (test code TRACE ON SCAN NONE = TEAR) OVALOCYTES (test code = 1+ ON SCAN NONE OVAL) PLATELET ESTIMATE (test ADEQUATE THOUSAND ADEQUATE code = PLTEST) PLATELET MORPHOLOGY (test NORMAL code = PLTMORPH) BASIC METABOLIC [id number] 06:29:00 Test Item Value Reference Range Interpretation Comments SODIUM (test code = NA) 143 mmol/L 134-147 N POTASSIUM (test code = 2.8 mmol/L 3.4-5.0 LL K) CHLORIDE (test code = 115 mmol/L 100-108 H CL) CARBON DIOXIDE (test 20 mmol/L 21-32 L code = CO2) ANION GAP (test code = 8.0 GAP calc 4.0-15.0 N GAP) GLUCOSE (test code = 86 MG/DL 70-110 N GLU) BLOOD UREA NITROGEN 7 MG/DL 7-18 (test code = BUN) GLOMERULAR FILTRATION >=60 max estimate >60 RATE (test code = GFR) estGFR CREATININE (test code = 0.6 MG/DL 0.6-1.0 N CREAT) CALCIUM (test code = CA) 8.0 MG/DL 8.5-10.1 L CBC W/AUTO [id number] 06:10:00 Test Item Value Reference Range Interpretation Comments WHITE BLOOD CELL (test code = 5.8 K/mm3 3.5-11.0 N WBC) RED BLOOD CELL (test code = RBC) 3.70 M/mm3 4.70-6.10 L HEMOGLOBIN (test code = HGB) 7.8 G/DL 10.4-14.9 L HEMATOCRIT (test code = HCT) 26.3 % 31.5-44.1 L MEAN CELL VOLUME (test code = 71.1 Fl 84.5-98.6 L MCV) MEAN CELL HGB (test code = MCH) 21.1 pg 27.0-34.2 L MEAN CELL HGB CONCETRATION (test 29.7 G/DL 31.5-34.0 L code = MCHC) RED CELL DISTRIBUTION WIDTH 18.8 SD 11.5-14.5 H (test code = RDW) PLATELET COUNT (test code = PLT) 314.0 K/mm3 150-450 N MANUAL DIFF REQUIRED (test code YES DIFF/SCN CRITERIA = MDIFF) WBC [id number] 06:10:00 Test Item Value Reference Range Interpretation Comments SEGMENTED NEUTROPHILS (test code = SEG) % 40-75 LYMPHOCYTE (test code = LYMPH) % 18.7-40.6 CBC W/AUTO [id number] 06:10:00 Test Item Value Reference Range Interpretation Comments WHITE BLOOD CELL (test code = 5.8 K/mm3 3.5-11.0 N WBC) RED BLOOD CELL (test code = RBC) 3.70 M/mm3 4.70-6.10 L HEMOGLOBIN (test code = HGB) 7.8 G/DL 10.4-14.9 L HEMATOCRIT (test code = HCT) 26.3 % 31.5-44.1 L MEAN CELL VOLUME (test code = 71.1 Fl 84.5-98.6 L MCV) MEAN CELL HGB (test code = MCH) 21.1 pg 27.0-34.2 L MEAN CELL HGB CONCETRATION (test 29.7 G/DL 31.5-34.0 L code = MCHC) RED CELL DISTRIBUTION WIDTH 18.8 SD 11.5-14.5 H (test code = RDW) PLATELET COUNT (test code = PLT) 314.0 K/mm3 150-450 N MANUAL DIFF REQUIRED (test code YES DIFF/SCN CRITERIA = MDIFF) WBC [id number] 06:10:00 Test Item Value Reference Range Interpretation Comments SEGMENTED NEUTROPHILS (test code = SEG) % 40-75 LYMPHOCYTE (test code = LYMPH) % 18.7-40.6 [id number] 16:27:00 RUN DATE: 02/16/19 [facility] - LAB *LIVE* PAGE 1 RUN TIME: 1627 Specimen Inquiry RUN USER: INTERFACE PATIENT: LARRY MARINO LOC: U #: [id number] AGE/SX: 68/F ROOM: [facility] RE02/11/19REG DR: Salvador Enrique MD : 54 BED: 1 DIS: STATUS: ADM IN TLOC: SPEC #: [id number] RECD: 02/15/19 STATUS: BRANDIN REJose Alberto #: [id number] LIAT: 02/15/198[address] [facility] DR: Salvador Enrique MD ENTERED: 02/15/19 SP TYPE: SURG OTHR DR: No Primary or Family Physician Self Referred Freddy Cortes MDORDERED: AB/PAS ADRIANA/2, SURG PATH LVL 4/, PATH STAIN GROU COPIES TO: No Primary or Family Phys[place] [id number] [address] [email or web address] Freddy Cortes MD [address] [place], [place] [address] [phone]: TISSUE ID BLK PCS DWIGHT LEV PROCEDURE DISPOSITION ____ ___ ___ ___ __ SMALL INTESTINE A 1 2 STOMACH, NOS B 1 1 PATH STAIN GROU STOMACH, NOS B 1 2 AB/PAS ADRIANA DUODENUM, NOS C 1 2 ESOPHAGUS, NOS D 1 1 AB/PAS ADRIANA PROCEDURES: ALBLUE (02/15/19) PAS (02/15/19) SURG PATH LVL 4 (02/15/19) PATH STAIN GROU (02/15/19) TISSUES: A. SMALL INTESTINE, NOS - SMALL BOWEL BIOPSY B. STOMACH, NOS - GASTRIC BIOPSY C. DUODENUM, NOS - DUODENAL BULB POLYP BIOPSY D. ESOPHAGUS, NOS - ESOPHAGUS BIOPSY CONTINUED ON NEXT PAGE RUN DATE: 02/16/19 [facility] - LAB *LIVE* PAGE 2 RUN TIME: 1627 Specimen Inquiry RUN USER: INTERFACE S PEC #: [facility]:[id number]: LARRY MARINO #[id number] (Continued) CLINICAL HISTORY UIT, PANCREATITIS, SOCIAL PLACEMENT CPT CODES CPT CODE(S): 58127A9 , 40172 , 85458Q2 , , , , FINAL DIAGNOSIS A. Small intestine, biopsy: DUODENUM WITH UNREMARKABLE VILLI B. Stomach, biopsy: MILD CHRONIC GASTRITIS NEGATIVE FOR INTESTINAL METAPLASIA, DYSPLASIA, OR MALIGNANCY NEGATIVE HELICOBACTER PYLORI ORGANISMS C. Small intestine, duodenal bulb, biopsy: DUODENUM WITH UNREMARKABLE VILLI D. Esophagus, biopsy: REFLUX ESOPHAGITIS NEGATIVE FOR INTESTINAL METAPLASIA, DYSPLASIA, OR MALIGNANCY GROSS DESCRIPTION A. Small bowel biopsy. Received in formalin are two florence tissue fragments, 0.2 and 0.7 cm, all as A. B. Gastric biopsy. Received in formalin are four florence tissue fragments, 0.2 - 0.8 cm, all as B. C. Duodenal bulb polyp biopsy. Received in formalin is a florence tissue fragment, 0.3 cm, all as C. D. Esophagus biopsy. Received in formalin are three florence tissue fragments, 0.1 - 0.2 cm, all as D. ba/nr Grossing performed at [facility] Pathology, [address] [place] [address], [address], [place] [address]. Assistant Principal: Rafael Walls M.D. CONTINUED ON NEXT PAGE RUN DATE: 02/16/19 [facility] - LAB *LIVE* PAGE 3 RUN TIME: 1627 Specimen Inquiry RUN USER: INTERFACE SPEC #: [id number] PATIENT: LARRY MARINO #[id number] (Continued) MICROSCOPIC DESCRIPTION A. Small bowel biopsy. Sections demonstrate duodenum with unremarkable villi. No evidence of villous blunting or increased intraepithelial lymphocytes is seen. No features of a malabsorption syndrome are identified. B. Gastric biopsy. Sections demonstrate gastric gastric mucosa with mild chronic inflammation. No dysplasia or malignancy is identified. Alcian blue-PAS confirms the absence of intestinal metaplasia. The Diff Quik stain demonstrates no evidence of Helicobacter pylori organisms. C. Duodenal bulb polyp biopsy. Sections demonstrate duodenum with unremarkable villi. No evidence of villous blunting or increased intraepithelial lymphocytes is seen. No features of a malabsorption syndrome are identified. D. Esophagus biopsy. Sections demonstrate squamous mucosa with basal cell hyperplasia andelongated papillae. No evidence of dysplasia or malignancy is seen. Alcian blue PAS confirms the absence of intestinal metaplasia. Signed SIGNATURE ON FILE Mitesh Colon 02/16/19 1627 END OF REPORT - XR UGI W/AIR W/SM [id number] 10:47:00 Name: LARRY MARINO [facility] : 1950 Age/S: 68 / F [address] Unit #: [id number] Loc: [place] [address] Phys: Sadaf Issa MD Acct: [id number] Dis Date: Status: ADM IN PHONE #: [phone] Exam Date: 02/13/2019 6552 FAX #: Reason: evaluate gastric anatomy EXAMS: CPT: [id number] XR UGI W/AIR W/SM INTEST 27676 Fluoro Time: 234 DAP (Gy m2): Air Kerma (mGy): 8.152 EXAMINATION: - XR UGI W/AIR W/SM INTEST. LOCATION: S17. HISTORY: Evaluate gastric anatomy, pancreatitis, persistent nausea. COMPARISON: CT abdomen and pelvis 02/10/2019. TECHNIQUE: Single contrast upper GIwas performed with barium oral contrast and overhead spot films were obtained. Fluoroscopic time: 234 seconds. 8.152 mGy. Subsequently, single contrast small bowel follow-through was performed with oral contrast and overhead spot films were obtained. FINDINGS: Wind Tunnel Mechanic image of the lower chest and abdomen appears unremarkable with air noted within small bowel. The esophagus is unremarkable in course andcaliber. Esophageal mucosal pattern is unremarkable. Gastroesophageal junction is normally positioned. The stomach appears unremarkable. Duodenal bulb and course of duodenum appears unremarkable. Esophageal peristalsis is unremarkable. Gastroesophageal reflux was not seen during the procedure. Small hiatal hernia noted. The small bowel is normal in course and caliber and the terminal ileum was well-visualized in the right lower quadrant. Unremarkable small bowel fold pattern. Unremarkable peristalsis. No stricture was identified. Transit time to the colon was unremarkable (approximately 180 minutes). IMPRESSION: Small hiatal hernia. Consider correlation with endoscopy. Unremarkable small bowel follow-through. at 1047 Reported and signed by: Yrn Singleton M.D. CC: Salvador Enrique MD; Sadaf Issa MD PAGE 1 Signed Report Name: LARRY MARINO [place] : 1950 Age/S: 68 / F [address] [facility] [place] Unit #: [id number] Loc: [place] [address] Phys: Sadaf Issa MD Acct: [id number] Dis Date: Status: ADM IN PHONE #: [phone] Exam Date: 02/13/2019 4046 FAX #: Reason: evaluate gastric anatomy EXAMS: CPT: [id number] XR UGI W/AIR W/SM INTEST 55077 Fluoro Time: 234 DAP (Gy m2): Air Kerma (mGy): 8.152 (Continued) Technologist: Magui Almonte, RT(R)(CT); Taylor Blackburn RT(R) Trnscb Date/Time: 02/14/2019 (1047) [email or web address] Orig Print D/T: S: 02/14/2019 (2885) PAGE 2 Signed ReportSERUM [id number] 18:42:00 Test Item Value Reference Range Interpretation Comments SERUM IRON (test code = IRON) 11 mcG/DL 50-170 L CBC W/AUTO [id number] 07:05:00 Test Item Value Reference Range Interpretation Comments WHITE BLOOD CELL (test code = 7.3 K/mm3 3.5-11.0 N WBC) RED BLOOD CELL (test code = RBC) 3.81 M/mm3 4.70-6.10 L HEMOGLOBIN (test code = HGB) 8.4 G/DL 10.4-14.9 L HEMATOCRIT (test code = HCT) 27.4 % 31.5-44.1 L MEAN CELL VOLUME (test code = 71.9 Fl 84.5-98.6 L MCV) MEAN CELL HGB (test code = MCH) 22.0 pg 27.0-34.2 L MEAN CELL HGB CONCETRATION (test 30.7 G/DL 31.5-34.0 L code = MCHC) RED CELL DISTRIBUTION WIDTH (test 19.5 SD 11.5-14.5 H code = RDW) PLATELET COUNT (test code = PLT) 404.0 K/mm3 150-450 N MEAN PLATELET VOLUME (test code = 11.80 fL 7.0-10.5 H MPV) NEUTROPHIL % (test code = NT%) 58.4 % 40-76 LYMPHOCYTE % (test code = LY%) 29.9 % 20.5-51.1 N MONOCYTE % (test code = MO%) 11.3 % 1.7-9.3 H EOSINOPHIL % (test code = EO%) 0.1 % 0.0-6.0 N BASOPHIL % (test code = BA%) 0.3 % 0.0-2.0 N NEUTROPHIL # (test code = NT#) 4.23 K/mm3 1.8-7.6 N LYMPHOCYTE # (test code = LY#) 2.2 K/mm3 0.6-3.2 N MONOCYTE # (test code = MO#) 0.8 K/mm3 0.3-1.1 N EOSINOPHIL # (test code = EO#) 0.0 K/mm3 0.0-0.4 N BASOPHIL # (test code = BA#) 0.0 K/mm3 0.0-0.1 N MANUAL DIFF REQUIRED (test code = NO DIFF/SCN CRITERIA MDIFF) RBC [id number] 07:05:00 Test Item Value Reference Range Interpretation Comments ANISOCYTOSIS (test code = TRACE NONE ANISO) ELLIPTOCYTES (test code = TRACE ON SCAN NONE ELL) PLATELET ESTIMATE (test ADEQUATE THOUSAND ADEQUATE code = PLTEST) PLATELET MORPHOLOGY (test NORMAL code = PLTMORPH) BASIC METABOLIC [id number] 06:26:00 Test Item Value Reference Range Interpretation Comments SODIUM (test code = NA) 143 mmol/L 134-147 N POTASSIUM (test code = 3.4 mmol/L 3.4-5.0 N K) CHLORIDE (test code = 112 mmol/L 100-108 H CL) CARBON DIOXIDE (test 24 mmol/L 21-32 N code = CO2) ANION GAP (test code = 7.0 GAP calc 4.0-15.0 N GAP) GLUCOSE (test code = 81 MG/DL 70-110 N GLU) BLOOD UREA NITROGEN 32 MG/DL 7-18 H (test code = BUN) GLOMERULAR FILTRATION >=60 max estimate >60 RATE (test code = GFR) estGFR CREATININE (test code = 0.8 MG/DL 0.6-1.0 N CREAT) CALCIUM (test code = CA) 8.3 MG/DL 8.5-10.1 L CBC W/AUTO [id number] 06:10:00 Test Item Value Reference Range Interpretation Comments WHITE BLOOD CELL (test code = 7.3 K/mm3 3.5-11.0 N WBC) RED BLOOD CELL (test code = RBC) 3.81 M/mm3 4.70-6.10 L HEMOGLOBIN (test code = HGB) 8.4 G/DL 10.4-14.9 L HEMATOCRIT (test code = HCT) 27.4 % 31.5-44.1 L MEAN CELL VOLUME (test code = 71.9 Fl 84.5-98.6 L MCV) MEAN CELL HGB (test code = MCH) 22.0 pg 27.0-34.2 L MEAN CELL HGB CONCETRATION (test 30.7 G/DL 31.5-34.0 L code = MCHC) RED CELL DISTRIBUTION WIDTH (test 19.5 SD 11.5-14.5 H code = RDW) PLATELET COUNT (test code = PLT) 404.0 K/mm3 150-450 N MEAN PLATELET VOLUME (test code = 11.80 fL 7.0-10.5 H MPV) NEUTROPHIL % (test code = NT%) 58.4 % 40-76 LYMPHOCYTE % (test code = LY%) 29.9 % 20.5-51.1 N MONOCYTE % (test code = MO%) 11.3 % 1.7-9.3 H EOSINOPHIL % (test code = EO%) 0.1 % 0.0-6.0 N BASOPHIL % (test code = BA%) 0.3 % 0.0-2.0 N NEUTROPHIL # (test code = NT#) 4.23 K/mm3 1.8-7.6 N LYMPHOCYTE # (test code = LY#) 2.2 K/mm3 0.6-3.2 N MONOCYTE # (test code = MO#) 0.8 K/mm3 0.3-1.1 N EOSINOPHIL # (test code = EO#) 0.0 K/mm3 0.0-0.4 N BASOPHIL # (test code = BA#) 0.0 K/mm3 0.0-0.1 N MANUAL DIFF REQUIRED (test code = NO DIFF/SCN CRITERIA MDIFF) CBC W/AUTO [id number] 06:10:00 Test Item Value Reference Range Interpretation Comments WHITE BLOOD CELL (test code = 7.3 K/mm3 3.5-11.0 N WBC) RED BLOOD CELL (test code = RBC) 3.81 M/mm3 4.70-6.10 L HEMOGLOBIN (test code = HGB) 8.4 G/DL 10.4-14.9 L HEMATOCRIT (test code = HCT) 27.4 % 31.5-44.1 L MEAN CELL VOLUME (test code = 71.9 Fl 84.5-98.6 L MCV) MEAN CELL HGB (test code = MCH) 22.0 pg 27.0-34.2 L MEAN CELL HGB CONCETRATION (test 30.7 G/DL 31.5-34.0 L code = MCHC) RED CELL DISTRIBUTION WIDTH (test 19.5 SD 11.5-14.5 H code = RDW) PLATELET COUNT (test code = PLT) 404.0 K/mm3 150-450 N MEAN PLATELET VOLUME (test code = 11.80 fL 7.0-10.5 H MPV) NEUTROPHIL % (test code = NT%) 58.4 % 40-76 LYMPHOCYTE % (test code = LY%) 29.9 % 20.5-51.1 N MONOCYTE % (test code = MO%) 11.3 % 1.7-9.3 H EOSINOPHIL % (test code = EO%) 0.1 % 0.0-6.0 N BASOPHIL % (test code = BA%) 0.3 % 0.0-2.0 N NEUTROPHIL # (test code = NT#) 4.23 K/mm3 1.8-7.6 N LYMPHOCYTE # (test code = LY#) 2.2 K/mm3 0.6-3.2 N MONOCYTE # (test code = MO#) 0.8 K/mm3 0.3-1.1 N EOSINOPHIL # (test code = EO#) 0.0 K/mm3 0.0-0.4 N BASOPHIL # (test code = BA#) 0.0 K/mm3 0.0-0.1 N MANUAL DIFF REQUIRED (test code = NO DIFF/SCN CRITERIA MDIFF) - CT ABD PELVIS [id number] 14:15:00 Name: LARRY MARINO [facility]ly [facility] : 1950 Age/S: 68 / F [address] Unit #: [id number] Loc: [place] [address] Phys: Leslie Marti MD Acct: [id number] Dis Date: Status: REG ER PHONE #: [phone] Exam Date: 02/10/2019 1343 FAX #: Reason: abdominal pain EXAMS: CPT: [id number] ABD PELVIS W/CONT 21578 - CT ABD PELVIS W/CONT HISTORY: abdominal pain COMPARISON: None. TECHNIQUE: Axial images of the abdomen and pelvis were obtained following the administration of 100 mL Isovue- 300 intravenous contrast. Coronal and sagittal reformats were provided. One or more of the followingdose reduction techniques were used: Automated exposure control, adjustment of the mA and/or kV according to patient size, and/or utilization of iterative reconstruction technique. FINDINGS: Lower thorax: Unremarkable. Hepatobiliary: Unremarkable. No biliary ductal dilatation. Gallbladder: No calcified gallstones are identified. The gallbladder wall appears normal. Spleen: Unremarkable. Pancreas: Unremarkable. Adrenals: Unremarkable. Kidneys/ureters: Unremarkable. Bowel: A small hiatal hernia is noted. The small bowel loops are nondilated. There is no evidence of small bowel obstruction. The appendix is not definitively identified. There are no secondary signs of acute appendicitis. A moderate amount of stool is seen in the colon and rectum. Pelvic organs/bladder: The urinary bladder wall is mildly thickened. This is accentuated by underdistention. The uterus is absent. Vessels: Moderate atherosclerotic calcification is noted in the aorta. Lymph nodes: No lymphadenopathy. Peritoneum/Retroperitoneum: No free air or free fluid is present. PAGE 1 Signed Report (CONTINUED) Name: LARRY MARINO : 1950 Age/S: 68 / F [address] [address] Unit #: [id number] Loc: [place] [address] Phys: Leslie Marti MD Acct: [id number] Dis Date: Status: REG ER PHONE #: [phone] Exam Date: 02/10/2019 1346 FAX #: Reason: abdominal pain EXAMS: CPT: [id number] CT ABD PELVIS W/CONT 25521 (Continued) Bones/soft tissues: A mild T12 compression deformity is noted. This is age indeterminate. IMPRESSION: 1. Small hiatal hernia. 2. No evidence of a bowel obstruction. 3. Mild thickening of the urinary bladder wall. Correlate with urinalysis. 4. A mild T12 compression deformity is age indeterminate. Correlate for point tenderness. LOCATION: R16 at 1415 Reported and signed by: Dillon Curry M.D. CC: Leslie Marti MD Technologist:JANY RAMIREZ RT(R)(CT)(MR) CTDI: DLP: Trnscb Date/Time: 02/10/2019 (141) [email or web address] OrigPrint D/T: S: 02/10/2019 (1418) PAGE 2 Signed ReportUA RFLX MICR CULT IF [id number] 13:49:00 Test Item Value Reference Range Interpretation Comments UA COLOR (test code = YELLOW discript YEL/STRAW COLU) UA APPEARANCE (test code HAZY discript CLEAR A = APPU) UA GLUCOSE DIPSTICK (test NEGATIVE mg/dL NEG code = DGLUU) UA BILIRUBIN DIPSTICK 1+ mg/dL NEG A (test code = BILU) UA KETONE DIPSTICK (test 1+ mg/dL NEG code = KETU) UA SPECIFIC GRAVITY (test 1.020 SG 1.005-1.030 code = SGU) UA BLOOD DIPSTICK (test NEGATIVE mg/DL NEG code = KAMILLE) UA PH DIPSTICK (test code 7.0 pH UNITS 5.0-7.0 = VIKI) UA PROTEIN DIPSTICK (test 1+ mg/dL NEG A code = PROU) UA UROBILINIOGEN DIPSTICK 0.2 mg/dL <2.0 (test code = URO) UA NITRITE DIPSTICK (test NEGATIVE SCREEN NEG code = DOMINIC) UA LEUKOCYTE ESTERASE 1+ Leuk/mcL NEGATIVE A DIPSTICK (test code = LEUU) UA WBC (test code = WBCU) 10-20 #WBC/HPF 0-3 A UA RBC (test code = RBCU) 1-3 #RBC/HPF 0-3 UA BACTERIA (test code = 2+ /HPF NONE-TRACE A BACU) UA SQUAMOUS CELLS (test 2+ /HPF NONE A code = SQU) UA YEAST (test code = TRACE /HPF NONE SEEN A YEASTU) UA CULTURE NEEDED? (test YES,WBC>10 & EPI<25 Culture CHK code = UACULT) Criteria SOURCE OF URINE: CLEAN CATCHIndication for culture: Dysuria/FrequencyUA RFLX MICR CULT IF [id number] 13:38:00 Test Item Value Reference Range Interpretation Comments UA COLOR (test code = COLU) YELLOW discript YEL/STRAW UA APPEARANCE (test code = HAZY discript CLEAR A APPU) UA GLUCOSE DIPSTICK (test NEGATIVE mg/dL NEG code = DGLUU) UA BILIRUBIN DIPSTICK (test 1+ mg/dL NEG A code = BILU) UA KETONE DIPSTICK (test code 1+ mg/dL NEG = KETU) UA SPECIFIC GRAVITY (test 1.020 SG 1.005-1.030 code = SGU) UA BLOOD DIPSTICK (test code NEGATIVE mg/DL NEG = KAMILLE) UA PH DIPSTICK (test code = 7.0 pH UNITS 5.0-7.0 VIKI) UA PROTEIN DIPSTICK (test 1+ mg/dL NEG A code = PROU) UA UROBILINIOGEN DIPSTICK 0.2 mg/dL <2.0 (test code = URO) UA NITRITE DIPSTICK (test NEGATIVE SCREEN NEG code = DOMINIC) UA LEUKOCYTE ESTERASE 1+ Leuk/mcL NEGATIVE A DIPSTICK (test code = LEUU) UA CULTURE NEEDED? (test code Criteria Culture CHK = UACULT) SOURCE OF URINE: CLEAN CATCHIndication for culture: Dysuria/FrequencyCBC W/AUTO [id number] 13:31:00 Test Item Value Reference Range Interpretation Comments WHITE BLOOD CELL (test code = 11.8 K/mm3 3.5-11.0 H WBC) RED BLOOD CELL (test code = RBC) 4.42 M/mm3 4.70-6.10 L HEMOGLOBIN (test code = HGB) 9.3 G/DL 10.4-14.9 L HEMATOCRIT (test code = HCT) 31.2 % 31.5-44.1 L MEAN CELL VOLUME (test code = 70.6 Fl 84.5-98.6 L MCV) MEAN CELL HGB (test code = MCH) 21.0 pg 27.0-34.2 L MEAN CELL HGB CONCETRATION (test 29.8 G/DL 31.5-34.0 L code = MCHC) RED CELL DISTRIBUTION WIDTH (test 20.0 SD 11.5-14.5 H code = RDW) PLATELET COUNT (test code = PLT) 524.0 K/mm3 150-450 H MEAN PLATELET VOLUME (test code = 11.60 fL 7.0-10.5 H MPV) NEUTROPHIL % (test code = NT%) 80.7 % 40-76 H LYMPHOCYTE % (test code = LY%) 11.9 % 20.5-51.1 L MONOCYTE % (test code = MO%) 7.2 % 1.7-9.3 N EOSINOPHIL % (test code = EO%) 0.0 % 0.0-6.0 N BASOPHIL % (test code = BA%) 0.2 % 0.0-2.0 N NEUTROPHIL # (test code = NT#) 9.53 K/mm3 1.8-7.6 H LYMPHOCYTE # (test code = LY#) 1.4 K/mm3 0.6-3.2 N MONOCYTE # (test code = MO#) 0.9 K/mm3 0.3-1.1 N EOSINOPHIL # (test code = EO#) 0.0 K/mm3 0.0-0.4 N BASOPHIL # (test code = BA#) 0.0 K/mm3 0.0-0.1 N MANUAL DIFF REQUIRED (test code = NO DIFF/SCN CRITERIA MDIFF) RBC [id number] 13:31:00 Test Item Value Reference Range Interpretation Comments HYPOCHROMIA (test code = TRACE ON SCAN NONE HYPO) MICROCYTOSIS (test code TRACE ON SCAN NONE = MICR) PLATELET ESTIMATE (test MARKEDLY INCREASED ADEQUATE code = PLTEST) THOUSAND PLATELET MORPHOLOGY NORMAL (test code = PLTMORPH) CBC W/AUTO [id number] 13:30:00 Test Item Value Reference Range Interpretation Comments WHITE BLOOD CELL (test code = 11.8 K/mm3 3.5-11.0 H WBC) RED BLOOD CELL (test code = RBC) 4.42 M/mm3 4.70-6.10 L HEMOGLOBIN (test code = HGB) 9.3 G/DL 10.4-14.9 L HEMATOCRIT (test code = HCT) 31.2 % 31.5-44.1 L MEAN CELL VOLUME (test code = 70.6 Fl 84.5-98.6 L MCV) MEAN CELL HGB (test code = MCH) 21.0 pg 27.0-34.2 L MEAN CELL HGB CONCETRATION (test 29.8 G/DL 31.5-34.0 L code = MCHC) RED CELL DISTRIBUTION WIDTH (test 20.0 SD 11.5-14.5 H code = RDW) PLATELET COUNT (test code = PLT) 524.0 K/mm3 150-450 H MEAN PLATELET VOLUME (test code = 11.60 fL 7.0-10.5 H MPV) NEUTROPHIL % (test code = NT%) 80.7 % 40-76 H LYMPHOCYTE % (test code = LY%) 11.9 % 20.5-51.1 L MONOCYTE % (test code = MO%) 7.2 % 1.7-9.3 N EOSINOPHIL % (test code = EO%) 0.0 % 0.0-6.0 N BASOPHIL % (test code = BA%) 0.2 % 0.0-2.0 N NEUTROPHIL # (test code = NT#) 9.53 K/mm3 1.8-7.6 H LYMPHOCYTE # (test code = LY#) 1.4 K/mm3 0.6-3.2 N MONOCYTE # (test code = MO#) 0.9 K/mm3 0.3-1.1 N EOSINOPHIL # (test code = EO#) 0.0 K/mm3 0.0-0.4 N BASOPHIL # (test code = BA#) 0.0 K/mm3 0.0-0.1 N MANUAL DIFF REQUIRED (test code = NO DIFF/SCN CRITERIA MDIFF) CBC W/AUTO [id number] 13:30:00 Test Item Value Reference Range Interpretation Comments WHITE BLOOD CELL (test code = 11.8 K/mm3 3.5-11.0 H WBC) RED BLOOD CELL (test code = RBC) 4.42 M/mm3 4.70-6.10 L HEMOGLOBIN (test code = HGB) 9.3 G/DL 10.4-14.9 L HEMATOCRIT (test code = HCT) 31.2 % 31.5-44.1 L MEAN CELL VOLUME (test code = 70.6 Fl 84.5-98.6 L MCV) MEAN CELL HGB (test code = MCH) 21.0 pg 27.0-34.2 L MEAN CELL HGB CONCETRATION (test 29.8 G/DL 31.5-34.0 L code = MCHC) RED CELL DISTRIBUTION WIDTH (test 20.0 SD 11.5-14.5 H code = RDW) PLATELET COUNT (test code = PLT) 524.0 K/mm3 150-450 H MEAN PLATELET VOLUME (test code = 11.60 fL 7.0-10.5 H MPV) NEUTROPHIL % (test code = NT%) 80.7 % 40-76 H LYMPHOCYTE % (test code = LY%) 11.9 % 20.5-51.1 L MONOCYTE % (test code = MO%) 7.2 % 1.7-9.3 N EOSINOPHIL % (test code = EO%) 0.0 % 0.0-6.0 N BASOPHIL % (test code = BA%) 0.2 % 0.0-2.0 N NEUTROPHIL # (test code = NT#) 9.53 K/mm3 1.8-7.6 H LYMPHOCYTE # (test code = LY#) 1.4 K/mm3 0.6-3.2 N MONOCYTE # (test code = MO#) 0.9 K/mm3 0.3-1.1 N EOSINOPHIL # (test code = EO#) 0.0 K/mm3 0.0-0.4 N BASOPHIL # (test code = BA#) 0.0 K/mm3 0.0-0.1 N MANUAL DIFF REQUIRED (test code = NO DIFF/SCN CRITERIA MDIFF) COMPREHENSIVE METABOLIC [id number] 13:23:00 Test Item Value Reference Range Interpretation Comments SODIUM (test code = NA) 143 mmol/L 134-147 N POTASSIUM (test code = K) 3.5 mmol/L 3.4-5.0 N CHLORIDE (test code = CL) 110 mmol/L 100-108 H CARBON DIOXIDE (test code = 21 mmol/L 21-32 N CO2) ANION GAP (test code = GAP) 12.0 GAP calc 4.0-15.0 N GLUCOSE (test code = GLU) 89 MG/DL 70-110 N BLOOD UREA NITROGEN (test code 45 MG/DL 7-18 H = BUN) GLOMERULAR FILTRATION RATE 53 estGFR >60 L (test code = GFR) CREATININE (test code = CREAT) 1.1 MG/DL 0.6-1.0 H TOTAL PROTEIN (test code = 8.1 G/DL 6.4-8.2 N PROT) ALBUMIN (test code = ALB) 4.2 G/DL 3.4-5.0 N GLOBULIN (test code = GLOB) 3.9 GM/dL ALBUMIN/GLOBULIN RATIO (test 1.1 RATIO 1.2-2.2 L code = A/G) CALCIUM (test code = CA) 9.3 MG/DL 8.5-10.1 N BILIRUBIN TOTAL (test code = 0.30 MG/DL 0.2-1.2 N BILT) SGOT/AST (test code = AST) 11 Unit/L 15-37 L SGPT/ALT (test code = ALT) 12 Unit/L 12-78 N ALKALINE PHOSPHATASE TOTAL 212 Unit/L 45-117 H (test code = ALKP) [id number] 13:23:00 Test Item Value Reference Range Interpretation Comments LIPASE (test code = LIP) 330 Unit/L 114-286 H CBC W/AUTO [id number] 13:15:00 Test Item Value Reference Range Interpretation Comments WHITE BLOOD CELL (test code = 11.8 K/mm3 3.5-11.0 H WBC) RED BLOOD CELL (test code = RBC) 4.42 M/mm3 4.70-6.10 L HEMOGLOBIN (test code = HGB) 9.3 G/DL 10.4-14.9 L HEMATOCRIT (test code = HCT) 31.2 % 31.5-44.1 L MEAN CELL VOLUME (test code = 70.6 Fl 84.5-98.6 L MCV) MEAN CELL HGB (test code = MCH) 21.0 pg 27.0-34.2 L MEAN CELL HGB CONCETRATION (test 29.8 G/DL 31.5-34.0 L code = MCHC) RED CELL DISTRIBUTION WIDTH (test 20.0 SD 11.5-14.5 H code = RDW) PLATELET COUNT (test code = PLT) 524.0 K/mm3 150-450 H MEAN PLATELET VOLUME (test code = 11.60 fL 7.0-10.5 H MPV) NEUTROPHIL % (test code = NT%) % 40-76 H LYMPHOCYTE % (test code = LY%) % 20.5-51.1 L MONOCYTE % (test code = MO%) % 1.7-9.3 N EOSINOPHIL % (test code = EO%) % 0.0-6.0 N BASOPHIL % (test code = BA%) % 0.0-2.0 N NEUTROPHIL # (test code = NT#) K/mm3 1.8-7.6 H LYMPHOCYTE # (test code = LY#) K/mm3 0.6-3.2 N MONOCYTE # (test code = MO#) K/mm3 0.3-1.1 N EOSINOPHIL # (test code = EO#) K/mm3 0.0-0.4 N BASOPHIL # (test code = BA#) K/mm3 0.0-0.1 N MANUAL DIFF REQUIRED (test code = DIFF/SCN CRITERIA MDIFF) MRI Neck w/wo contrast [id number] 10:32:00EXAM: MRI OF THE NECK SOFT TISSUES WITHOUT AND WITH CONTRASTDATE: 07/21/2018 10:32 AM PRINCIPAL ASSOCIATE .ORDERING P HYSICIAN: Lou Posey DDS MDCLINICAL INDICATION: - K11.9-disease of the salivary gland/ parotid mass; TECHNIQUE: Multiplanar, multisequence MRI of the neck soft tissues performed isperformed both prior to and after uncomplicated IV administration of 13 ccDotaremCOMPARISON: Same-day CT neck soft tissuesFINDINGS:Aerodigestive tract: No mucosal thickening, abnormal enhancement, or asymmetry.Thesubmucosal fat planes are maintained..Lymph nodes: No lymphadenopathy.Salivary glands: There is a heterogeneous, microlobulated, T2 hyperintense, W2zbuebzqmvzf relatively homogeneously enhancing right parotid mass lesionmeasuring approximately 2.1 cm transverse by 2.4 cm AP by 3.2 cm craniocaudal.There is no associated ductal dilatation or adjacent inflammation. Theremaining salivary glands are unremarkable.Vascular structures: Normal flow voids.Thyroid: Within normal limits.Paranasal sinuses: Grossly clear paranasal sinuses and mastoids.Intracranial compartment: Within normal limits.Subcutaneous tissues: Within normal limits.Regional skeleton: Within normal limits.Lung apices: Grossly unremarkable.IMPRESSION:1. Enhancing, microlobulated right parotid mass lesion measuring up to 3.2 cmis most reflective of a pleomorphic adenoma; however, differential diagnosisincludes both benign and malignant et iologies, and tissue diagnosis isrecommended.2. The lesion measures larger on MRI than the comparison CT likely due toimproved soft tissue contrast on MRI. The MR measurements are considered moreaccurate.--Read by: Dominik Dominguez MDDictated Date/time: 07/21/18 12:11Electronically Signed by: Dominik Dominguez MD 07/21/1814:25FINAL REPORTUT PhysiciansCT Neck soft tissue w contrast [id number] 10:18:00EXAM: Neck soft tissue w contrast CTDATE: 07/21/2018 10:18 AM PRINCIPAL ASSOCIATE .ORDERING PHYSICIAN: Lou Posey DDS MDCLINICAL INDICATION: - K11.9 Disease of salivary gland, unspecified; TECHNIQUE: Thin sec tion axial images are obtained from aortic arch to themiddle cranial fossa after uncomplicated IV administration of 100 cc Omnipaque.Axial, sagittal, coronal images are interpreted. -- This exam was performed according to our departmental dose-optimizationprotocol, which includes automated exposure control, adjustment of the mAand/or kV according to patient size and/or use of iterative reconstructiontechnique. -- DLP- 369 mGy-cmCOMPARISON: MRI neck of July 21, 2018FINDINGS:Aerodigestive tract:Suprahyoid Neck: The oropharynx, oral cavity, parapharyngeal space, andretropharyngeal space are normal.Infrahyoid Neck: The valleculae and piriform sinuses are normal. The larynx,hypopharynx, epiglottis a nd supraglottis are normal.Lymph nodes: No lymphadenopathy.Salivary glands: There is a rounded, heterogeneously enhancing mass in theright parotid gland measuring approximately 1.9 cm AP by 1.9 cm transverse by2.0 cm craniocaudal. The lesion is mostly superficial but does extend to thelevel of the external carotid branches. There are no superficial inflammatorychanges. The remaining salivary glands are unremarkable.Vascular structures: Within normal limits.Thyroid: Within normal limits.Paranasal sinuses: Clear with grossly patent drainage pathways. The mastoid areclear.Intracranial compartment: Within normal limits.Subcutaneous tissues: Within normal limits.Regional skeleton: Cervical spine degenerative changes.Lung apices: Within normal limits.IMPRESSION:Approximately 2 cm enhancing right parotid mass lesion is nonspecific inappearance with differential diagnosis including both benign and malignantpathologies. Tissue diagnosis is recommended.--Read by: Dominik Dominguez MDDictated Date/time: 07/21/18 12:11Electronically Signed by: Dominik Dominguez MD 07/21/1814:20FINAL REPORTUT Physicians[U] XRAY SPINE LUMBOSACRAL MIN 4 VWS [id number] 08:54:00 Test Item Value Reference Range Interpretation Comments XR SPINE LUMBOSACRAL EXAM: XR SPINE MIN 4 VWS (test code = LUMBOSACRAL MIN 4 VWS 69997-2) DATE: 01/31/2018 10:56 AM CDT INDICATION: Low back pain. COMPARISON: None available TECHNIQUE: AP, lateral, coned lateral, LPO and RPO radiographs of the lumbar spine FINDINGS: 5 nonrib bearing, lumbar-type vertebral bodies are present. Alignment and vertebral body heights are intact. Mild disc space narrowing visualized at L4-5. Severe facet arthropathy seen throughout the lumbar spine most significant at right L4-5.Oblique views show no spondylolysis or spondylolisthesis.No soft tissue abnormality. IMPRESSION: 1. Severe facet arthropathy in the lumbar spine most significant at right L4-5 level. 01/31/2018 10:59 AM CDT [facility] PhysiciansOVA AND PARASITE [id number] 12:28:00 Test Item Value Reference Range Interpretation Comments DIRECT SMEAR - O\\T\\P No ova or parasites No ova or parasites (BEAKER) (test code = seen seen 196) CONCENTRATE SMEAR - No ova or parasites No ova or parasites O\\T\\P (BEAKER) (test seen seen code = 247) TRICHROME SMEAR - No ova or parasites No ova or parasites O\\T\\P (BEAKER) (test seen seen code = 248) TISSUE [id number] 09:30:00Surgical Pathology Report Case: [id number] Authorizing Provider: Olimpia Cheng MD Collected: 04/05/2017 1251 Ordering Location: [facility] Med Surg 5th Floor Received: 04/05/2017 1310 Pathologist: Roxana Shaikh MD Specimen: Ulcer, transverse colon ulcer This addendum is to report immunohistochemical stain results. HSV: NEGATIVECMV: NEGATIVEAddendum electronically signed by Sapna Hernandez MD on 04/07/2017 at 9:30 AMLARGE INTESTINE, TRANSVERSE COLON ULCER, BIOPSY: - COLONIC MUCOSA WITH EXTENSIVE ULCERATION, ACUTE INFLAMMATION AND REACTIVE/REGENERATIVE CHANGES (SEE COMMENT) - NO DYSPLASIA OR MALIGNANCY SEEN Signing Pathologist Direct Phone Line: [phone] signedby Roxana Hernandez MD on 04/06/2017 at 11:08 AMThe transverse colon biopsy may be consistent with an ischemic colitis; however infectious etiologies need to be excluded. Differential diagnosisincludes but is not limited to C. difficile infection (negative by PCR) and enterohemorrhagic E. coli. Clinical correlation with stool cultures is suggested. CMV and HSV immunohistochemical stains are being performed and an addendum report will follow. [id number], 52961, 33261HSFBZqlygvzbuy colon ulcerThe specimen is received in fixative and designated as "ulcer", and consists of multiple pink-florence tissue fragments ranging in size from 0.1 to 0.3 cm in greatest dimension. All tissue fragments are submitted into A1. MG/pl Sections show colonic mucosa with loss of crypts due to extensive ulceration, overlying acute inflammation and hyalinization of the lamina propria. The residual crypts are withered withregenerative/reactive changes and contain neutrophilic crypt abscesses. No parasites are seen. HSV and CMV immunohistochemical stains are being ordered to exclude a viral etiology. No dysplasia or malignancy is seen. The following special studies were performed on this case with appropriate and reactive controls and the interpretation is incorporated in the diagnostic report above: CMV, HSV.The immunohistochemistry test was developed and its performance characteristics determined by [facility], Pathology Laboratory. It has not been cleared or approved by the U.S. Food and Drug Administration. The FDA has determined that such clearance or approval is not necessary. The test is used for clinical purposes. It should not be regarded as investigational or for research. This laboratory is certified under the Clinical Laboratory Improvement Amendments of 1988 (CLIA- 88) as qualified toperform high complexity clinical laboratory testing.BASIC METABOLIC [id number] 06:00:00 Test Item Value Reference Range Interpretation Comments SODIUM (BEAKER) 143 meq/L 135-148 (test code = 381) POTASSIUM (BEAKER) 3.4 meq/L 3.6-5.5 L (test code = 379) CHLORIDE (BEAKER) 114 meq/L 98-106 H (test code = 382) CO2 (BEAKER) (test 20 meq/L 20-29 code = 355) BLOOD UREA NITROGEN 9 mg/dL 10-26 L (BEAKER) (test code = 354) CREATININE (BEAKER) 0.70 mg/dL 0.50-1.20 (test code = 358) GLUCOSE RANDOM 100 mg/dL 70-110 (BEAKER) (test code = 652) CALCIUM (BEAKER) 8.4 mg/dL 8.5-10.5 L (test code = 697) EGFR (BEAKER) (test 84 mL/min/1.73 ESTIMA TORRES GFR IS code = 1092) sq m NOT ACCURATE CREATININE CLEARANCE IN PREDICTING GLOMERULAR FILTRATION RATE . ESTIMATED GFR I S NOT APPLICABLE FOR DIALYSIS PATIEN TS. CBC W/PLT COUNT & AUTO [id number] 05:48:00 Test Item Value Reference Range Interpretation Comments WHITE BLOOD CELL COUNT (BEAKER) 9.4 K/ L 4.0-10.0 (test code = 775) RED BLOOD CELL COUNT (BEAKER) 3.39 M/ L 4.00-5.00 L (test code = 761) HEMOGLOBIN (BEAKER) (test code = 9.9 GM/DL 12.0-15.0 L 410) HEMATOCRIT (BEAKER) (test code = 30.2 % 36.0-45.0 L 411) MEAN CORPUSCULAR VOLUME (BEAKER) 89.2 fL 82.0-99.0 (test code = 753) MEAN CORPUSCULAR HEMOGLOBIN 29.4 pg 27.0-33.0 (BEAKER) (test code = 751) MEAN CORPUSCULAR HEMOGLOBIN CONC 32.9 GM/DL 32.0-36.0 (BEAKER) (test code = 752) RED CELL DISTRIBUTION WIDTH 13.4 % 10.3-14.2 (BEAKER) (test code = 412) PLATELET COUNT (BEAKER) (test 387 K/CU MM 150-430 code = 756) MEAN PLATELET VOLUME (BEAKER) 7.7 fL 6.5-10.5 (test code = 754) NUCLEATED RED BLOOD CELLS 0 /100 WBC 0-0 (BEAKER) (test code = 413) NEUTROPHILS RELATIVE PERCENT 61 % (BEAKER) (test code = 429) LYMPHOCYTES RELATIVE PERCENT 29 % (BEAKER) (test code = 430) MONOCYTES RELATIVE PERCENT 9 % (BEAKER) (test code = 431) EOSINOPHILS RELATIVE PERCENT 1 % (BEAKER) (test code = 432) BASOPHILS RELATIVE PERCENT 0 % (BEAKER) (test code = 437) NEUTROPHILS ABSOLUTE COUNT 5.70 K/ L 1.80-8.00 (BEAKER) (test code = 670) LYMPHOCYTES ABSOLUTE COUNT 2.70 K/ L 1.48-4.50 (BEAKER) (test code = 414) MONOCYTES ABSOLUTE COUNT (BEAKER) 0.80 K/ L 0.00-1.30 (test code = 415) EOSINOPHILS ABSOLUTE COUNT 0.10 K/ L 0.00-0.50 (BEAKER) (test code = 416) BASOPHILS ABSOLUTE COUNT (BEAKER) 0.00 K/ L 0.00-0.20 (test code = 417) BASIC METABOLIC [id number] 11:06:00 Test Item Value Reference Range Interpretation Comments SODIUM (BEAKER) 140 meq/L 135-148 (test code = 381) POTASSIUM (BEAKER) 3.6 meq/L 3.6-5.5 (test code = 379) CHLORIDE (BEAKER) 112 meq/L 98-106 H (test code = 382) CO2 (BEAKER) (test 19 meq/L 20-29 L code = 355) BLOOD UREA NITROGEN 8 mg/dL 10-26 L (BEAKER) (test code = 354) CREATININE (BEAKER) 0.80 mg/dL 0.50-1.20 (test code = 358) GLUCOSE RANDOM 116 mg/dL 70-110 H (BEAKER) (test code = 652) CALCIUM (BEAKER) 8.5 mg/dL 8.5-10.5 (test code = 697) EGFR (BEAKER) (test 72 mL/min/1.73 ESTIMA TORRES GFR IS code = 1092) sq m NOT ACCURATE CREATININE CLEARANCE IN PREDICTING GLOMERULAR FILTRATION RATE . ESTIMATED GFR I S NOT APPLICABLE FOR DIALYSIS PATIEN TS. CBC W/PLT COUNT & AUTO [id number] 10:39:00 Test Item Value Reference Range Interpretation Comments WHITE BLOOD CELL COUNT (BEAKER) 9.5 K/ L 4.0-10.0 (test code = 775) RED BLOOD CELL COUNT (BEAKER) 3.45 M/ L 4.00-5.00 L (test code = 761) HEMOGLOBIN (BEAKER) (test code = 10.1 GM/DL 12.0-15.0 L 410) HEMATOCRIT (BEAKER) (test code = 30.2 % 36.0-45.0 L 411) MEAN CORPUSCULAR VOLUME (BEAKER) 87.5 fL 82.0-99.0 (test code = 753) MEAN CORPUSCULAR HEMOGLOBIN 29.3 pg 27.0-33.0 (BEAKER) (test code = 751) MEAN CORPUSCULAR HEMOGLOBIN CONC 33.5 GM/DL 32.0-36.0 (BEAKER) (test code = 752) RED CELL DISTRIBUTION WIDTH 13.4 % 10.3-14.2 (BEAKER) (test code = 412) PLATELET COUNT (BEAKER) (test 360 K/CU MM 150-430 code = 756) MEAN PLATELET VOLUME (BEAKER) 7.7 fL 6.5-10.5 (test code = 754) NUCLEATED RED BLOOD CELLS 0 /100 WBC 0-0 (BEAKER) (test code = 413) NEUTROPHILS RELATIVE PERCENT 69 % (BEAKER) (test code = 429) LYMPHOCYTES RELATIVE PERCENT 22 % (BEAKER) (test code = 430) MONOCYTES RELATIVE PERCENT 8 % (BEAKER) (test code = 431) EOSINOPHILS RELATIVE PERCENT 1 % (BEAKER) (test code = 432) BASOPHILS RELATIVE PERCENT 1 % (BEAKER) (test code = 437) NEUTROPHILS ABSOLUTE COUNT 6.60 K/ L 1.80-8.00 (BEAKER) (test code = 670) LYMPHOCYTES ABSOLUTE COUNT 2.10 K/ L 1.48-4.50 (BEAKER) (test code = 414) MONOCYTES ABSOLUTE COUNT (BEAKER) 0.70 K/ L 0.00-1.30 (test code = 415) EOSINOPHILS ABSOLUTE COUNT 0.10 K/ L 0.00-0.50 (BEAKER) (test code = 416) BASOPHILS ABSOLUTE COUNT (BEAKER) 0.00 K/ L 0.00-0.20 (test code = 417) POCT-GLUCOSE [id number] 16:55:00 Test Item Value Reference Range Interpretation Comments POC-GLUCOSE METER 89 mg/dL 70-110 TESTED AT [address] ([facility]) (test code = [facility] 1538) [id number] BLOOD [id number] 16:01:00 Test Item Value Reference Range Interpretation Comments CULTURE (BEAKER) (test No growth in 5 days code = 1095) BLOOD [id number] 16:01:00 Test Item Value Reference Range Interpretation Comments CULTURE (BEAKER) (test No growth in 5 days code = 1095) POCT-GLUCOSE [id number] 07:59:00 Test Item Value Reference Range Interpretation Comments POC-GLUCOSE METER 164 mg/dL 70-110 H TESTED AT [address] ([facility]) (test code [facility] = 1538) [id number] POCT-GLUCOSE [id number] 07:59:00 Test Item Value Reference Range Interpretation Comments POC-GLUCOSE METER 91 mg/dL 70-110 TESTED AT [address] ([facility]) (test code = [facility] 1538) [address] POCT-GLUCOSE [id number] 07:58:00 Test Item Value Reference Range Interpretation Comments POC-GLUCOSE METER 129 mg/dL 70-110 H TESTED AT [facility] [address] (BEAKER) (test code [facility] [place] = 1538) [id number] POCT-GLUCOSE [id number] 06:37:00 Test Item Value Reference Range Interpretation Comments POC-GLUCOSE METER 113 mg/dL 70-110 H TESTED AT [facility] [address] (BEAKER) (test code [facility] [place] = 1538) [address] BASIC METABOLIC [id number] 06:16:00 Test Item Value Reference Range Interpretation Comments SODIUM (BEAKER) 141 meq/L 135-148 (test code = 381) POTASSIUM (BEAKER) 3.8 meq/L 3.6-5.5 (test code = 379) CHLORIDE (BEAKER) 116 meq/L 98-106 H (test code = 382) CO2 (BEAKER) (test 16 meq/L 20-29 L code = 355) BLOOD UREA NITROGEN 6 mg/dL 10-26 L (BEAKER) (test code = 354) CREATININE (BEAKER) 0.70 mg/dL 0.50-1.20 (test code = 358) GLUCOSE RANDOM 96 mg/dL 70-110 (BEAKER) (test code = 652) CALCIUM (BEAKER) 8.4 mg/dL 8.5-10.5 L (test code = 697) EGFR (BEAKER) (test 84 mL/min/1.73 ESTIMA TORRES GFR IS code = 1092) sq m NOT ACCURATE CREATININE CLEARANCE IN PREDICTING GLOMERULAR FILTRATION RATE . ESTIMATED GFR I S NOT APPLICABLE FOR DIALYSIS PATIEN TS. [id number] 06:11:00 Test Item Value Reference Range Interpretation Comments PHOSPHORUS (BEAKER) (test code = 2.7 mg/dL 2.5-4.5 604) CBC W/PLT COUNT & AUTO [id number] 06:10:00 Test Item Value Reference Range Interpretation Comments WHITE BLOOD CELL COUNT 14.1 K/ L 4.0-10.0 H (BEAKER) (test code = 775) RED BLOOD CELL COUNT (BEAKER) 3.23 M/ L 4.00-5.00 L (test code = 761) HEMOGLOBIN (BEAKER) (test 9.6 GM/DL 12.0-15.0 L code = 410) HEMATOCRIT (BEAKER) (test 28.6 % 36.0-45.0 L code = 411) MEAN CORPUSCULAR VOLUME 88.4 fL 82.0-99.0 (BEAKER) (test code = 753) MEAN CORPUSCULAR HEMOGLOBIN 29.6 pg 27.0-33.0 (BEAKER) (test code = 751) MEAN CORPUSCULAR HEMOGLOBIN 33.5 GM/DL 32.0-36.0 CONC (BEAKER) (test code = 752) RED CELL DISTRIBUTION WIDTH 13.5 % 10.3-14.2 (BEAKER) (test code = 412) PLATELET COUNT (BEAKER) (test 262 K/CU MM 150-430 No clot seen code = 756) MEAN PLATELET VOLUME (BEAKER) 8.3 fL 6.5-10.5 (test code = 754) NUCLEATED RED BLOOD CELLS 0 /100 WBC 0-0 (BEAKER) (test code = 413) NEUTROPHILS RELATIVE PERCENT 75 % (BEAKER) (test code = 429) LYMPHOCYTES RELATIVE PERCENT 17 % (BEAKER) (test code = 430) MONOCYTES RELATIVE PERCENT 8 % (BEAKER) (test code = 431) EOSINOPHILS RELATIVE PERCENT 1 % (BEAKER) (test code = 432) BASOPHILS RELATIVE PERCENT 0 % (BEAKER) (test code = 437) NEUTROPHILS ABSOLUTE COUNT 10.50 K/ L 1.80-8.00 H (BEAKER) (test code = 670) LYMPHOCYTES ABSOLUTE COUNT 2.30 K/ L 1.48-4.50 (BEAKER) (test code = 414) MONOCYTES ABSOLUTE COUNT 1.10 K/ L 0.00-1.30 (BEAKER) (test code = 415) EOSINOPHILS ABSOLUTE COUNT 0.10 K/ L 0.00-0.50 (BEAKER) (test code = 416) BASOPHILS ABSOLUTE COUNT 0.00 K/ L 0.00-0.20 (BEAKER) (test code = 417) [id number] 06:06:00 Test Item Value Reference Range Interpretation Comments MAGNESIUM (BEAKER) (test code = 1.8 mg/dL 1.5-3.0 627) POCT-GLUCOSE [id number] 21:49:00 Test Item Value Reference Range Interpretation Comments POC-GLUCOSE METER 109 mg/dL 70-110 TESTED AT [facility] [address] (BEAKER) (test code [address] [facility] [place] = 1538) [id number] POCT-GLUCOSE [id number] 21:49:00 Test Item Value Reference Range Interpretation Comments POC-GLUCOSE METER 107 mg/dL 70-110 TESTED AT [facility] [address] (BEAKER) (test code [address] [facility] [place] = 1538) [id number] COMPREHENSIVE METABOLIC [id number] 06:43:00 Test Item Value Reference Range Interpretation Comments TOTAL PROTEIN 5.1 gm/dL 6.0-8.5 L (BEAKER) (test code = 770) ALBUMIN (BEAKER) 2.7 g/dL 3.5-5.0 L (test code = 1145) ALKALINE PHOSPHATASE 79 U/L 30-115 (BEAKER) (test code = 346) BILIRUBIN TOTAL 0.4 mg/dL 0.1-1.2 (BEAKER) (test code = 377) SODIUM (BEAKER) (test 144 meq/L 135-148 code = 381) POTASSIUM (BEAKER) 2.9 meq/L 3.6-5.5 L (test code = 379) CHLORIDE (BEAKER) 115 meq/L 98-106 H (test code = 382) CO2 (BEAKER) (test 20 meq/L 20-29 code = 355) BLOOD UREA NITROGEN 6 mg/dL 10-26 L (BEAKER) (test code = 354) CREATININE (BEAKER) 0.70 mg/dL 0.50-1.20 (test code = 358) GLUCOSE RANDOM 86 mg/dL 70-110 (BEAKER) (test code = 652) CALCIUM (BEAKER) 8.4 mg/dL 8.5-10.5 L (test code = 697) AST (SGOT) (BEAKER) 11 U/L 5-40 (test code = 353) ALT (SGPT) (BEAKER) 11 U/L 5-50 (test code = 347) EGFR (BEAKER) (test 84 mL/min/1.73 ESTIMA TORRES GFR IS code = 1092) sq m NOT ACCURATE CREATININE CLEARANCE IN PREDICTING GLOMERULAR FILTRATION RATE . ESTIMATED GFR I S NOT APPLICABLE FOR DIALYSIS PATIEN TS. [id number] 06:34:00 Test Item Value Reference Range Interpretation Comments MAGNESIUM (BEAKER) (test code = 2.1 mg/dL 1.5-3.0 627) CBC W/PLT COUNT & AUTO [id number] 06:10:00 Test Item Value Reference Range Interpretation Comments WHITE BLOOD CELL COUNT (BEAKER) 8.6 K/ L 4.0-10.0 (test code = 775) RED BLOOD CELL COUNT (BEAKER) 3.28 M/ L 4.00-5.00 L (test code = 761) HEMOGLOBIN (BEAKER) (test code = 9.8 GM/DL 12.0-15.0 L 410) HEMATOCRIT (BEAKER) (test code = 29.5 % 36.0-45.0 L 411) MEAN CORPUSCULAR VOLUME (BEAKER) 90.1 fL 82.0-99.0 (test code = 753) MEAN CORPUSCULAR HEMOGLOBIN 29.9 pg 27.0-33.0 (BEAKER) (test code = 751) MEAN CORPUSCULAR HEMOGLOBIN CONC 33.1 GM/DL 32.0-36.0 (BEAKER) (test code = 752) RED CELL DISTRIBUTION WIDTH 13.1 % 10.3-14.2 (BEAKER) (test code = 412) PLATELET COUNT (BEAKER) (test 264 K/CU MM 150-430 code = 756) MEAN PLATELET VOLUME (BEAKER) 7.8 fL 6.5-10.5 (test code = 754) NUCLEATED RED BLOOD CELLS 0 /100 WBC 0-0 (BEAKER) (test code = 413) NEUTROPHILS RELATIVE PERCENT 69 % (BEAKER) (test code = 429) LYMPHOCYTES RELATIVE PERCENT 21 % (BEAKER) (test code = 430) MONOCYTES RELATIVE PERCENT 6 % (BEAKER) (test code = 431) EOSINOPHILS RELATIVE PERCENT 3 % (BEAKER) (test code = 432) BASOPHILS RELATIVE PERCENT 0 % (BEAKER) (test code = 437) NEUTROPHILS ABSOLUTE COUNT 6.00 K/ L 1.80-8.00 (BEAKER) (test code = 670) LYMPHOCYTES ABSOLUTE COUNT 1.80 K/ L 1.48-4.50 (BEAKER) (test code = 414) MONOCYTES ABSOLUTE COUNT (BEAKER) 0.50 K/ L 0.00-1.30 (test code = 415) EOSINOPHILS ABSOLUTE COUNT 0.30 K/ L 0.00-0.50 (BEAKER) (test code = 416) BASOPHILS ABSOLUTE COUNT (BEAKER) 0.00 K/ L 0.00-0.20 (test code = 417) BASIC METABOLIC [id number] 08:43:00 Test Item Value Reference Range Interpretation Comments SODIUM (BEAKER) 143 meq/L 135-148 (test code = 381) POTASSIUM (BEAKER) 3.2 meq/L 3.6-5.5 L (test code = 379) CHLORIDE (BEAKER) 116 meq/L 98-106 H (test code = 382) CO2 (BEAKER) (test 17 meq/L 20-29 L code = 355) BLOOD UREA NITROGEN 7 mg/dL 10-26 L (BEAKER) (test code = 354) CREATININE (BEAKER) 0.70 mg/dL 0.50-1.20 (test code = 358) GLUCOSE RANDOM 94 mg/dL 70-110 (BEAKER) (test code = 652) CALCIUM (BEAKER) 8.3 mg/dL 8.5-10.5 L (test code = 697) EGFR (BEAKER) (test 84 mL/min/1.73 ESTIMA TORRES GFR IS code = 1092) sq m NOT ACCURATE CREATININE CLEARANCE IN PREDICTING GLOMERULAR FILTRATION RATE . ESTIMATED GFR I S NOT APPLICABLE FOR DIALYSIS PATIEN TS. [id number] 08:43:00 Test Item Value Reference Range Interpretation Comments MAGNESIUM (BEAKER) (test code = 2.1 mg/dL 1.5-3.0 627) STOOL CULTURE + SHIGA [id number] 08:21:00 Test Item Value Reference Range Interpretation Comments CULTURE (BEAKER) No Salmonella, Shigella (test code = 1095) or Campylobacter isolated STOOL PATH [id number] 08:21:00 Test Item Value Reference Range Interpretation Comments PATHOGEN EXAM CHARGED (BEAKER) (test Done code = 1977) CBC W/PLT COUNT & AUTO [id number] 06:27:00 Test Item Value Reference Range Interpretation Comments WHITE BLOOD CELL COUNT (BEAKER) 11.9 K/ L 4.0-10.0 H (test code = 775) RED BLOOD CELL COUNT (BEAKER) 3.30 M/ L 4.00-5.00 L (test code = 761) HEMOGLOBIN (BEAKER) (test code = 9.7 GM/DL 12.0-15.0 L 410) HEMATOCRIT (BEAKER) (test code = 29.6 % 36.0-45.0 L 411) MEAN CORPUSCULAR VOLUME (BEAKER) 89.6 fL 82.0-99.0 (test code = 753) MEAN CORPUSCULAR HEMOGLOBIN 29.4 pg 27.0-33.0 (BEAKER) (test code = 751) MEAN CORPUSCULAR HEMOGLOBIN CONC 32.8 GM/DL 32.0-36.0 (BEAKER) (test code = 752) RED CELL DISTRIBUTION WIDTH 13.3 % 10.3-14.2 (BEAKER) (test code = 412) PLATELET COUNT (BEAKER) (test 206 K/CU MM 150-430 code = 756) MEAN PLATELET VOLUME (BEAKER) 8.3 fL 6.5-10.5 (test code = 754) NUCLEATED RED BLOOD CELLS 0 /100 WBC 0-0 (BEAKER) (test code = 413) NEUTROPHILS RELATIVE PERCENT 82 % (BEAKER) (test code = 429) LYMPHOCYTES RELATIVE PERCENT 12 % (BEAKER) (test code = 430) MONOCYTES RELATIVE PERCENT 4 % (BEAKER) (test code = 431) EOSINOPHILS RELATIVE PERCENT 2 % (BEAKER) (test code = 432) BASOPHILS RELATIVE PERCENT 0 % (BEAKER) (test code = 437) NEUTROPHILS ABSOLUTE COUNT 9.80 K/ L 1.80-8.00 H (BEAKER) (test code = 670) LYMPHOCYTES ABSOLUTE COUNT 1.40 K/ L 1.48-4.50 L (BEAKER) (test code = 414) MONOCYTES ABSOLUTE COUNT (BEAKER) 0.50 K/ L 0.00-1.30 (test code = 415) EOSINOPHILS ABSOLUTE COUNT 0.20 K/ L 0.00-0.50 (BEAKER) (test code = 416) BASOPHILS ABSOLUTE COUNT (BEAKER) 0.00 K/ L 0.00-0.20 (test code = 417) CLOSTRIDIUM DIFFICILE TOXIN [id number] 12:32:00 Test Item Value Reference Range Interpretation Comments CLOSTRIDIUM DIFFICILE TOXIN, PCR Not Detected Not Detected (BEAKER) (test code = 1525) This qualitative real-time polymerase chain reaction assay detects the tcdB gene, encoded on the C.difficile pathogenicity locus (PaLoc). The product of tcdB, toxin B, is a cytotoxin essential for causing C.difficile-associated disease (CDAD) and is found in virtually all toxigenic C.difficile.This assay is performed for patients suspected of having either community-acquired or nosocomial CDAD. Accordingly, only symptomatic patients should be tested and formed stools will be rejected unless ileus ispresent (i.e., specified when ordering). Patients may be colonized with toxigenic C.difficile strains not causing active disease; therefore, clinical correlation is needed when deciding how to manage patients with a positive test result.The assay has not been validated as a test of cure as amplifiablenucleic acid may persist after effective treatment; therefore, follow-up testing of a positive result is not recommended.BASIC METABOLIC [id number] 06:46:00 Test Item Value Reference Range Interpretation Comments SODIUM (BEAKER) 143 meq/L 135-148 (test code = 381) POTASSIUM (BEAKER) 3.1 meq/L 3.6-5.5 L (test code = 379) CHLORIDE (BEAKER) 119 meq/L 98-106 H (test code = 382) CO2 (BEAKER) (test 14 meq/L 20-29 L code = 355) BLOOD UREA NITROGEN 14 mg/dL 10-26 (BEAKER) (test code = 354) CREATININE (BEAKER) 0.80 mg/dL 0.50-1.20 (test code = 358) GLUCOSE RANDOM 85 mg/dL 70-110 (BEAKER) (test code = 652) CALCIUM (BEAKER) 8.1 mg/dL 8.5-10.5 L (test code = 697) EGFR (BEAKER) (test 72 mL/min/1.73 ESTIMA TORRES GFR IS code = 1092) sq m NOT ACCURATE CREATININE CLEARANCE IN PREDICTING GLOMERULAR FILTRATION RATE . ESTIMATED GFR I S NOT APPLICABLE FOR DIALYSIS PATIEN TS. CBC W/PLT COUNT & AUTO [id number] 06:25:00 Test Item Value Reference Range Interpretation Comments WHITE BLOOD CELL COUNT (BEAKER) 18.0 K/ L 4.0-10.0 H (test code = 775) RED BLOOD CELL COUNT (BEAKER) 3.13 M/ L 4.00-5.00 L (test code = 761) HEMOGLOBIN (BEAKER) (test code = 9.4 GM/DL 12.0-15.0 L 410) HEMATOCRIT (BEAKER) (test code = 28.4 % 36.0-45.0 L 411) MEAN CORPUSCULAR VOLUME (BEAKER) 90.6 fL 82.0-99.0 (test code = 753) MEAN CORPUSCULAR HEMOGLOBIN 30.1 pg 27.0-33.0 (BEAKER) (test code = 751) MEAN CORPUSCULAR HEMOGLOBIN CONC 33.2 GM/DL 32.0-36.0 (BEAKER) (test code = 752) RED CELL DISTRIBUTION WIDTH 13.2 % 10.3-14.2 (BEAKER) (test code = 412) PLATELET COUNT (BEAKER) (test 184 K/CU MM 150-430 code = 756) MEAN PLATELET VOLUME (BEAKER) 8.2 fL 6.5-10.5 (test code = 754) NUCLEATED RED BLOOD CELLS 0 /100 WBC 0-0 (BEAKER) (test code = 413) NEUTROPHILS RELATIVE PERCENT 89 % (BEAKER) (test code = 429) LYMPHOCYTES RELATIVE PERCENT 7 % (BEAKER) (test code = 430) MONOCYTES RELATIVE PERCENT 4 % (BEAKER) (test code = 431) EOSINOPHILS RELATIVE PERCENT 1 % (BEAKER) (test code = 432) BASOPHILS RELATIVE PERCENT 0 % (BEAKER) (test code = 437) NEUTROPHILS ABSOLUTE COUNT 15.90 K/ L 1.80-8.00 H (BEAKER) (test code = 670) LYMPHOCYTES ABSOLUTE COUNT 1.30 K/ L 1.48-4.50 L (BEAKER) (test code = 414) MONOCYTES ABSOLUTE COUNT (BEAKER) 0.60 K/ L 0.00-1.30 (test code = 415) EOSINOPHILS ABSOLUTE COUNT 0.10 K/ L 0.00-0.50 (BEAKER) (test code = 416) BASOPHILS ABSOLUTE COUNT (BEAKER) 0.00 K/ L 0.00-0.20 (test code = 417) POCT-GLUCOSE [id number] 18:42:00 Test Item Value Reference Range Interpretation Comments POC-GLUCOSE METER 78 mg/dL 70-110 TESTED AT [facility] (BEAKER) (test code = [address] [place] [address]) [address] FECAL [id number] 16:19:00 Test Item Value Reference Range Interpretation Comments FECAL LEUKOCYTES No fecal leukocytes No fecal leukocytes (BEAKER) (test code = seen seen 992) SHIGA TOXIN [id number] 15:00:00 Test Item Value Reference Range Interpretation Comments SHIGA TOXIN 1 (BEAKER) (test Not detected Not detected code = 2177) SHIGA TOXIN 2 (BEAKER) (test Not detected Not detected code = 2179) URINALYSIS W/ REFLEX URINE [id number] 09:33:00 Test Item Value Reference Range Interpretation Comments COLOR (BEAKER) (test code = 470) Yellow CLARITY (BEAKER) (test code = 469) Clear SPECIFIC GRAVITY UA (BEAKER) (test 1.015 1.001-1.035 code = 468) PH UA (BEAKER) (test code = 467) 6.0 5.0-8.0 PROTEIN UA (BEAKER) (test code = Trace Negative A 464) GLUCOSE UA (BEAKER) (test code = Negative Negative 365) KETONES UA (BEAKER) (test code = Negative Negative 371) BILIRUBIN UA (BEAKER) (test code = Negative Negative 462) BLOOD UA (BEAKER) (test code = 461) Moderate Negative A NITRITE UA (BEAKER) (test code = Negative Negative 465) LEUKOCYTE ESTERASE UA (BEAKER) Negative Negative (test code = 466) UROBILINOGEN UA (BEAKER) (test code 0.2 mg/dL 0.2-1.0 = 463) BACTERIA (BEAKER) (test code = 517) Few RBC UA-MANUAL (BEAKER) (test code = <5 /HPF 1659) WBC UA-MANUAL (BEAKER) (test code = <5 /HPF 1661) SQUAMOUS EPITHELIAL MANUAL (BEAKER) <5 /HPF (test code = 1663) SOURCE(BEAKER) (test code = 1249) HEMOGLOBIN [id number] 08:23:00 Test Item Value Reference Range Interpretation Comments HEMOGLOBIN A1C (BEAKER) (test code = 5.4 % 4.3-6.1 368) BASIC METABOLIC [id number] 08:01:00 Test Item Value Reference Range Interpretation Comments SODIUM (BEAKER) 149 meq/L 135-148 H (test code = 381) POTASSIUM (BEAKER) 3.6 meq/L 3.6-5.5 Specimen slightly (test code = 379) hemolyzed CHLORIDE (BEAKER) 127 meq/L 98-106 H (test code = 382) CO2 (BEAKER) (test 18 meq/L 20-29 L code = 355) BLOOD UREA NITROGEN 24 mg/dL 10-26 (BEAKER) (test code = 354) CREATININE (BEAKER) 1.10 mg/dL 0.50-1.20 Specimen slightly (test code = 358) hemolyzed GLUCOSE RANDOM 63 mg/dL 70-110 L (BEAKER) (test code = 652) CALCIUM (BEAKER) 8.2 mg/dL 8.5-10.5 L (test code = 697) EGFR (BEAKER) (test 50 mL/min/1.73 ESTIMA TORRES GFR IS code = 1092) sq m NOT ACCURATE CREATININE CLEARANCE IN PREDICTING GLOMERULAR FILTRATION RATE . ESTIMATED GFR I S NOT APPLICABLE FOR DIALYSIS PATIEN TS. POCT-GLUCOSE [id number] 07:43:00 Test Item Value Reference Range Interpretation Comments POC-GLUCOSE METER 106 mg/dL 70-110 TESTED AT [address] ([facility]) (test code [address] [facility] [place] = [address]38) [address] LACTIC ACID, VENOUS, WHOLE [id number] 07:07:00 Test Item Value Reference Range Interpretation Comments LACTATE BLOOD VENOUS 2.1 mmol/L 0.5-2.2 Specime n slightly (2) (BEAKER) (test hemolyzed code = 2872) Effective 12/24/2015: Units/Reference Range ChangeNew: 0.5-2.2 mmol/L Previous: 5- 18 mg/dLCBC W/PLT COUNT & AUTO [id number] 06:09:00 Test Item Value Reference Range Interpretation Comments WHITE BLOOD CELL COUNT 24.2 K/ L 4.0-10.0 H (BEAKER) (test code = 775) RED BLOOD CELL COUNT 3.49 M/ L 4.00-5.00 L (BEAKER) (test code = 761) HEMOGLOBIN (BEAKER) (test 10.4 GM/DL 12.0-15.0 L code = 410) HEMATOCRIT (BEAKER) (test 31.2 % 36.0-45.0 L code = 411) MEAN CORPUSCULAR VOLUME 89.6 fL 82.0-99.0 (BEAKER) (test code = 753) MEAN CORPUSCULAR 29.8 pg 27.0-33.0 HEMOGLOBIN (BEAKER) (test code = 751) MEAN CORPUSCULAR 33.2 GM/DL 32.0-36.0 HEMOGLOBIN CONC (BEAKER) (test code = 752) RED CELL DISTRIBUTION 12.9 % 10.3-14.2 WIDTH (BEAKER) (test code = 412) PLATELET COUNT (BEAKER) 189 K/CU MM 150-430 No c lot detected (test code = 756) MEAN PLATELET VOLUME 8.6 fL 6.5-10.5 (BEAKER) (test code = 754) NUCLEATED RED BLOOD CELLS 0 /100 WBC 0-0 (BEAKER) (test code = 413) NEUTROPHILS RELATIVE 91 % PERCENT (BEAKER) (test code = 429) LYMPHOCYTES RELATIVE 5 % PERCENT (BEAKER) (test code = 430) MONOCYTES RELATIVE 4 % PERCENT (BEAKER) (test code = 431) EOSINOPHILS RELATIVE 0 % PERCENT (BEAKER) (test code = 432) BASOPHILS RELATIVE 0 % PERCENT (BEAKER) (test code = 437) NEUTROPHILS ABSOLUTE 22.00 K/ L 1.80-8.00 H COUNT (BEAKER) (test code = 670) LYMPHOCYTES ABSOLUTE 1.20 K/ L 1.48-4.50 L COUNT (BEAKER) (test code = 414) MONOCYTES ABSOLUTE COUNT 1.00 K/ L 0.00-1.30 (BEAKER) (test code = 415) EOSINOPHILS ABSOLUTE 0.00 K/ L 0.00-0.50 COUNT (BEAKER) (test code = 416) BASOPHILS ABSOLUTE COUNT 0.00 K/ L 0.00-0.20 (BEAKER) (test code = 417) (MANUAL DIFFERENTIAL)[id number] 06:09:00 Test Item Value Reference Range Interpretation Comments NEUTROPHILS - REL (DIFF) (BEAKER) 82 % (test code = 1359) LYMPHOCYTES - REL (DIFF) (BEAKER) 9 % (test code = 1360) MONOCYTES - REL (DIFF) (BEAKER) 5 % (test code = 1361) EOSINOPHILS - REL (DIFF) (BEAKER) 1 % (test code = 1362) BANDS - REL (DIFF) (BEAKER) (test 3 % 0-10 code = 1348) NEUTROPHILS - ABS (DIFF) (BEAKER) 19.84 K/ L 1.80-8.00 H (test code = 1365) LYMPHOCYTES - ABS (DIFF) (BEAKER) 2.18 K/ L 1.48-4.50 (test code = 1366) MONOCYTES - ABS (DIFF) (BEAKER) 1.21 K/ L 0.00-1.30 (test code = 1367) EOSINOPHILS - ABS (DIFF) (BEAKER) 0.24 K/ L 0.00-0.50 (test code = 1368) BANDS-ABS (DIFF) (BEAKER) (test 0.7 K/ L 0.0-0.8 code = 1349) TOTAL COUNTED (BEAKER) (test code 100 = 1351) BANDS + SEGMENTED NEUTROPHILS 20.57 (BEAKER) (test code = 1352) WBC MORPHOLOGY (BEAKER) (test code Normal = 487) PLT MORPHOLOGY (BEAKER) (test code Normal = 486) RBC MORPHOLOGY (BEAKER) (test code Normal = 762) HEPATIC FUNCTION [id number] 05:47:00 Test Item Value Reference Range Interpretation Comments TOTAL PROTEIN (BEAKER) 5.4 gm/dL 6.0-8.5 L Speci men slightly (test code = 770) hemolyzed ALBUMIN (BEAKER) (test 2.9 g/dL 3.5-5.0 L Speci men slightly code = 1145) hemolyzed BILIRUBIN TOTAL 0.4 mg/dL 0.1-1.2 Specimen sli ghtly (BEAKER) (test code = hemoly zed 377) BILIRUBIN DIRECT 0.2 mg/dL 0.0-0.4 Specimen sl ightly (BEAKER) (test code = hemoly zed 706) ALKALINE PHOSPHATASE 88 U/L 30-115 (BEAKER) (test code = 346) AST (SGOT) (BEAKER) 18 U/L 5-40 Specimen slightly (test code = 353) hemolyzed ALT (SGPT) (BEAKER) 8 U/L 5-50 Specimen slightly (test code = 347) hemolyzed TSH/FREE T4 IF [id number] 05:46:00 Test Item Value Reference Range Interpretation Comments THYROID STIMULATING HORMONE 2.65 uIU/mL 0.35-5.50 (BEAKER) (test code = 772) LIPID [id number] 05:46:00 Test Item Value Reference Range Interpretation Comments TRIGLYCERIDES (BEAKER) 145 mg/dL Speci men slightly (test code = 540) hemolyzed CHOLESTEROL (BEAKER) 76 mg/dL Specime n slightly (test code = 631) hemolyzed HDL CHOLESTEROL (BEAKER) 33 mg/dL (test code = 976) LDL CHOLESTEROL 14 mg/dL CALCULATED (BEAKER) (test code = 633) Triglyceride Reference Range: Low Risk <150 Borderline 150-199 High Risk 200-499 Very High Risk >=500Cholesterol Reference Range: Low Risk <200 Borderline 200-239 High Risk >240HDL Cholesterol Reference Range: Low Risk >=60 High Risk <40LDL Cholesterol Reference Range: Optimal <100 Near Optimal 100-129 Borderline 130-159 High 160-189 Very High >=190OCCULT BLOOD, [id number] 23:08:00 Test Item Value Reference Range Interpretation Comments FECAL OCCULT BLOOD (BEAKER) (test Positive Negative A code = 618) LACTIC ACID, VENOUS, WHOLE [id number] 12:44:00 Test Item Value Reference Range Interpretation Comments LACTATE BLOOD VENOUS 4.0 mmol/L 0.5-2.2 HH Specime n slightly (2) (BEAKER) (test hemolyzed code = 2872) Effective 12/24/2015: Units/Reference Range ChangeNew: 0.5-2.2 mmol/L Previous: 5- 18 mg/dLCBC W/PLT COUNT & AUTO [id number] 12:04:00 Test Item Value Reference Range Interpretation Comments WHITE BLOOD CELL COUNT (BEAKER) 25.5 K/ L 4.0-10.0 H (test code = 775) RED BLOOD CELL COUNT (BEAKER) 4.41 M/ L 4.00-5.00 (test code = 761) HEMOGLOBIN (BEAKER) (test code = 13.1 GM/DL 12.0-15.0 410) HEMATOCRIT (BEAKER) (test code = 39.2 % 36.0-45.0 411) MEAN CORPUSCULAR VOLUME (BEAKER) 89.0 fL 82.0-99.0 (test code = 753) MEAN CORPUSCULAR HEMOGLOBIN 29.6 pg 27.0-33.0 (BEAKER) (test code = 751) MEAN CORPUSCULAR HEMOGLOBIN CONC 33.3 GM/DL 32.0-36.0 (BEAKER) (test code = 752) RED CELL DISTRIBUTION WIDTH 12.7 % 10.3-14.2 (BEAKER) (test code = 412) PLATELET COUNT (BEAKER) (test 241 K/CU MM 150-430 code = 756) MEAN PLATELET VOLUME (BEAKER) 8.7 fL 6.5-10.5 (test code = 754) NUCLEATED RED BLOOD CELLS 0 /100 WBC 0-0 (BEAKER) (test code = 413) (MANUAL DIFFERENTIAL)[id number] 12:04:00 Test Item Value Reference Range Interpretation Comments NEUTROPHILS - REL (DIFF) (BEAKER) 81 % (test code = 1359) LYMPHOCYTES - REL (DIFF) (BEAKER) 5 % (test code = 1360) MONOCYTES - REL (DIFF) (BEAKER) 6 % (test code = 1361) BANDS - REL (DIFF) (BEAKER) (test 8 % 0-10 code = 1348) NEUTROPHILS - ABS (DIFF) (BEAKER) 20.66 K/ L 1.80-8.00 H (test code = 1365) LYMPHOCYTES - ABS (DIFF) (BEAKER) 1.28 K/ L 1.48-4.50 L (test code = 1366) MONOCYTES - ABS (DIFF) (BEAKER) 1.53 K/ L 0.00-1.30 H (test code = 1367) BANDS-ABS (DIFF) (BEAKER) (test 2.0 K/ L 0.0-0.8 H code = 1349) TOTAL COUNTED (BEAKER) (test code 100 = 1351) BANDS + SEGMENTED NEUTROPHILS 22.70 (BEAKER) (test code = 1352) WBC MORPHOLOGY (BEAKER) (test code Normal = 487) PLT MORPHOLOGY (BEAKER) (test code Normal = 486) RBC MORPHOLOGY (BEAKER) (test code Normal = 762) HEPATIC FUNCTION [id number] 11:53:00 Test Item Value Reference Range Interpretation Comments TOTAL PROTEIN (BEAKER) (test code = 6.2 gm/dL 6.0-8.5 770) ALBUMIN (BEAKER) (test code = 1145) 3.5 g/dL 3.5-5.0 BILIRUBIN TOTAL (BEAKER) (test code 0.5 mg/dL 0.1-1.2 = 377) BILIRUBIN DIRECT (BEAKER) (test 0.2 mg/dL 0.0-0.4 code = 706) ALKALINE PHOSPHATASE (BEAKER) (test 93 U/L 30-115 code = 346) AST (SGOT) (BEAKER) (test code = 11 U/L 5-40 353) ALT (SGPT) (BEAKER) (test code = 9 U/L 5-50 347) [id number] 11:53:00 Test Item Value Reference Range Interpretation Comments LIPASE (BEAKER) (test code = 749) 12 U/L 6-51 BASIC METABOLIC [id number] 11:52:00 Test Item Value Reference Range Interpretation Comments SODIUM (BEAKER) 140 meq/L 135-148 (test code = 381) POTASSIUM (BEAKER) 3.9 meq/L 3.6-5.5 (test code = 379) CHLORIDE (BEAKER) 112 meq/L 98-106 H (test code = 382) CO2 (BEAKER) (test 17 meq/L 20-29 L code = 355) BLOOD UREA NITROGEN 27 mg/dL 10-26 H (BEAKER) (test code = 354) CREATININE (BEAKER) 1.70 mg/dL 0.50-1.20 H (test code = 358) GLUCOSE RANDOM 114 mg/dL 70-110 H (BEAKER) (test code = 652) CALCIUM (BEAKER) 8.8 mg/dL 8.5-10.5 (test code = 697) EGFR (BEAKER) (test 30 mL/min/1.73 INSUFF ICIENT CLINICAL code = 1092) sq m DATA TO CALCULA TE ESTIMATED GFR.
[2022-06-28] MEDS ORDERED: MORPHINE 2 MG/ML SYR ONE (16:09)
[2022-06-28 16:21] LABS: Absolute Lymphocytes (CBC) 1.9 K/uL (0.7-4.9); Hematocrit 32.5 % (36.0-45.0); Lymphocytes % 15.6 % (15.3-44.8); MCV 87.6 fL (80-100); RBC Red Blood Cell Count 3.71 M/uL (3.86-4.86)
[2022-06-28 16:27] LABS: Protime INR 1.03
[2022-06-28 16:37] LABS: Magnesium 2.3 mg/dL (1.8-2.4); Potassium 4.6 mmol/L (3.5-5.1)
[2022-06-28] MEDS ORDERED: VANCOMYCIN 1 GM/VIAL ONE (16:57)
[2022-06-28] MEDS ORDERED: NA CHLORIDE 0.9% 250 ML ONE (16:58)
--- NOTE | 2022-06-28 17:04 | EDPHYS ---
Physician Documentation [facility] Name: Delma Evans Age: 72 yrs Sex: Female : 1950 Arrival Date: 06/28/2022 Time: 15:13 Bed 14 Private MD: ED Physician Tyler Brennan HPI: 06/28 15:30 This 72 yrs old Female presents to ER via EMS with complaints of Leg Swelling, Abscess. cp 15:30 The patient presents with an abscess of the right upper leg, The patient presents with cp cellulitis of the right upper leg. Description: draining, erythematous, warm. Onset: The symptoms/episode began/occurred 5 day(s) ago. Associated signs and symptoms: Pertinent positives: drainage, erythema, Pertinent negatives: fever. Patient is a resident of [facility] sent to ED for evaluation of abscess and cellulitis of right upper leg. Currently taking oral Bactrim. Historical: - Allergies: 15:16 No Known Allergies; ll1 - PMHx: 15:16 COPD; Anxiety; GERD; Hypercholesterolemia; Hypothyroidism; Hypertensive disorder; ll1 Parkinson's disease; Schizophrenia; - PSHx: 15:16 Unable to Obtain; ll1 - Immunization history:: Client reports receiving the 2nd dose of the Covid vaccine. - Social history:: Smoking status: Patient/guardian denies using tobacco, the patient reports quitting approximately 3 years ago. ROS: 15:35 Constitutional: Negative for body aches, chills, fever, poor PO intake. cp 15:35 Eyes: Negative for injury, pain, redness, and discharge. cp 15:35 ENT: Negative for drainage from ear(s), ear pain, sore throat, difficulty swallowing, difficulty handling secretions. 15:35 Cardiovascular: Negative for chest pain, palpitations. 15:35 Respiratory: Negative for cough, shortness of breath, wheezing. 15:35 Abdomen/GI: Negative for abdominal pain, nausea, vomiting, and diarrhea. 15:35 Skin: Positive for abscess, erythema, swelling, of the right upper leg. 15:35 Neuro: Negative for altered mental status. 15:35 All other systems are negative. Exam: 15:40 Constitutional: The patient appears in no acute distress, alert, awake, non-toxic, well cp developed, well nourished, uncomfortable. 15:40 Head/Face: Normocephalic, atraumatic. cp 15:40 Eyes: Periorbital structures: appear normal, Conjunctiva: normal, no exudate, no injection, Sclera: no appreciated abnormality, Lids and lashes: appear normal, bilaterally. 15:40 ENT: External ear(s): are unremarkable, Nose: is normal, Mouth: Lips: moist, Oral mucosa: pink and intact, moist, Posterior pharynx: Airway: no evidence of obstruction, patent. 15:40 Chest/axilla: Inspection: normal. 15:40 Cardiovascular: Rate: normal, Rhythm: regular, Edema: is not appreciated. 15:40 Respiratory: the patient does not display signs of respiratory distress, Respirations: normal, no use of accessory muscles, no retractions, labored breathing, is not present, Breath sounds: are clear throughout, no decreased breath sounds, no stridor, no wheezing. 15:40 Abdomen/GI: Inspection: abdomen appears normal, Palpation: abdomen is soft and non-tender, in all quadrants. 15:40 Back: pain, is absent, ROM is normal. 15:40 Skin: abscess, that is moderate sized, of the right upper leg, with surrounding cellulitis, that is moderate. 15:40 Neuro: Orientation: to person, place \T\ time. Mentation: is normal, Motor: moves all fours, strength is normal. 16:30 ECG was reviewed by the Attending Physician. cp Vital Signs: 15:14 BP 149 / 71; Pulse 86; Resp 18; Temp 98.4(O); Pulse Ox 91% on R/A; Weight 63.5 kg; ll1 Height 5 ft. 2 in. (157.48 cm); Pain 6/10; 16:26 BP 134 / 58; Pulse 72; Resp 17; Pulse Ox 94% on R/A; ll1 17:50 BP 147 / 72; Pulse 81; Resp 16; Pulse Ox 94% on R/A; ll1 18:42 BP 139 / 62; Pulse 78; Resp 16; ll1 19:15 BP 147 / 64; Pulse 75; Resp 16; Pulse Ox 95% on R/A; jb4 20:30 BP 156 / 69; Pulse 87; Resp 16; Pulse Ox 97% on R/A; jb4 15:14 Body Mass Index 25.61 (63.50 kg, 157.48 cm) ll1 MDM: 15:20 Patient medically screened. 17:03 Data reviewed: vital signs, nurses notes, lab test result(s), EKG, radiologic studies, cp ultrasound. 17:03 Test interpretation: by ED physician or midlevel provider: ECG. Counseling: I had a cp detailed discussion with the patient and/or guardian regarding: the historical points, exam findings, and any diagnostic results supporting the discharge/admit diagnosis, lab results, radiology results, the need for further work-up and treatment in the hospital. Physician consultation: Ozzie ALEXANDER was contacted at 17:00, regarding admission, to the medical/surgical unit. patient's condition, and will see patient in ED. 06/28 15:23 Order name: Basic Metabolic Panel; Complete Time: 16:53 06/28 16:53 Interpretation: Normal except: CL 110; BUN 34; CRE 1.44; GFR 39. 06/28 15:23 Order name: CBC with Diff; Complete Time: 16:25 06/28 16:25 Interpretation: Normal except: WBC 12.40; RBC 3.71; HGB 10.6; HCT 32.5; NEUT A 9.1. 06/28 15:23 Order name: Magnesium; Complete Time: 16:53 06/28 15:23 Order name: PT-INR; Complete Time: 16:53 06/28 15:23 Order name: Wound Culture 06/28 15:23 Order name: Lactate; Complete Time: 16:25 06/28 16:25 Interpretation: Reviewed. 06/28 15:23 Order name: Procalcitonin; Complete Time: 17:02 06/28 17:02 Interpretation: Procalcitonin 1.30; Reviewed. 06/28 15:23 Order name: Blood Culture Adult (2) 06/28 15:23 Order name: US Extrmty Nonvasular Limited; Complete Time: 17:32 06/28 15:24 Order name: Urine Microscopic Only; Complete Time: 18:48 06/28 17:08 Order name: SARS RAPID; Complete Time: 18:48 jl7 06/28 18:10 Order name: Urine Dipstick-Ancillary; Complete Time: 18:48 EDMS 06/28 15:23 Order name: EKG; Complete Time: 15:24 06/28 15:23 Order name: Cardiac monitoring; Complete Time: 16:45 06/28 15:23 Order name: EKG - Nurse/Tech; Complete Time: 16:45 06/28 15:23 Order name: IV Saline Lock; Complete Time: 15:57 06/28 15:23 Order name: Labs collected and sent; Complete Time: 15:57 06/28 15:23 Order name: O2 Per Protocol; Complete Time: 15:57 06/28 15:23 Order name: O2 Sat Monitoring; Complete Time: 15:57 06/28 15:24 Order name: Urine Dipstick-Ancillary (obtain specimen); Complete Time: 17:51 06/28 18:10 Order name: Diet Heart Healthy; Complete Time: 18:11 ll1 EC:30 Rate is 71 beats/min. Rhythm is regular. SD interval is normal. QRS interval is normal. cp QT interval is normal. T waves are Inverted in lead aVR. Interpreted by me. Reviewed by me. Administered Medications: 16:11 Drug: morphine 2 mg Route: IVP; Infused Over: 4 mins; Site: right hand; ll1 17:51 Follow up: Response: No adverse reaction; Pain is decreased; RASS: Alert and Calm (0) ll1 17:10 Drug: vancoMYCIN 1 grams Route: IVPB; Infused Over: 2 hrs; Site: left hand; ll1 19:26 Drug: Cefepime 1 grams Route: IVPB; Rate: 200 ml/hr; Infused Over: 30 mins; Site: right jb4 forearm; 20:34 Not Given (Patient Refused): morphine 2 mg IVP once over 4 mins jb4 Disposition: 06/29 17:08 Co-signature as Attending Physician, Tyler Brennan MD. rn Disposition Summary: 06/28/22 17:03 Hospitalization Ordered Hospitalization Status: Inpatient Admission cp Provider: Oren Kinney cp Location: Telemetry/MedSurg (Inpatient) cp Condition: Stable cp Problem: new cp Symptoms: have improved cp Bed/Room Type: Standard cp Room Assignment: 204(06/28/22 18:27) bd Diagnosis - Cutaneous abscess of right lower limb cp - Cellulitis of right lower limb cp Forms: - Medication Reconciliation Form cp - SBAR form cp Signatures: Dispatcher [employer] Simona Grossman Roman, MD MD rn Page, Corey, PA PA Eliezer Low RN RN jb4 Frederic Rapp RN RN ll1 Corrections: (The following items were deleted from the chart) 06/28 16:59 06/27 16:30 ECG was reviewed by the Attending Physician. [facility] 06/28 16:59 06/27 16:30 Rate is 71 beats/min. Rhythm is regular. SD interval is normal. QRS cp interval is normal. QT interval is normal. T waves are Inverted in lead aVR. Interpreted by me. Reviewed by me. 06/28 18:27 17:03 [facility]
--- NOTE | 2022-06-28 17:04 | ER ---
Nurse's Notes [facility] Name: Delma Evans Age: 72 yrs Sex: Female : 1950 Arrival Date: 06/28/2022 Time: 15:13 Bed 14 Private MD: Diagnosis: Cutaneous abscess of right lower limb;Cellulitis of right lower limb Presentation: 06/28 15:14 Chief complaint: Patient states: Sent in to ER for cellulitis R thigh and IV ll1 antibiotics. Coronavirus screen: Vaccine status: Patient reports receiving the 2nd dose of the covid vaccine. Client denies travel out of the [place] in the last 14 days. At this time, the client does not indicate any symptoms associated with coronavirus-19. Ebola Screen: Patient denies travel to an Ebola-affected area in the 21 days before illness onset. Initial Sepsis Screen: Does the patient meet any 2 criteria? No. Patient's initial sepsis screen is negative. Does the patient have a suspected source of infection? Yes: Skin breakdown/wound. Risk Assessment: Do you want to hurt yourself or someone else? Patient reports no desire to harm self or others. Onset of symptoms was June 24, 2022. 15:14 Method Of Arrival: EMS ll1 15:14 Acuity: JOANNA 3 ll1 Triage Assessment: 15:17 General: Appears uncomfortable, Behavior is cooperative, appropriate for age. Pain: ll1 Complains of pain in right leg Pain currently is 6 out of 10 on a pain scale. Quality of pain is described as aching, throbbing, Pain began 5 days ago Aggravated by increased activity, weight bearing. Neuro: No deficits noted. Cardiovascular: No deficits noted. Respiratory: No deficits noted. Derm: Abscess located on right leg is half dollar sized, has purulent drainage, is hot to touch, is red, Reports pain. Musculoskeletal: Circulation, motion, and sensation intact. Capillary refill < 3 seconds. Historical: - Allergies: 15:16 No Known Allergies; ll1 - PMHx: 15:16 COPD; Anxiety; GERD; Hypercholesterolemia; Hypothyroidism; Hypertensive disorder; ll1 Parkinson's disease; Schizophrenia; - PSHx: 15:16 Unable to Obtain; ll1 - Immunization history:: Client reports receiving the 2nd dose of the Covid vaccine. - Social history:: Smoking status: Patient/guardian denies using tobacco, the patient reports quitting approximately 3 years ago. Screenin:28 Abuse screen: Denies threats or abuse. Nutritional screening: No deficits noted. ll1 Tuberculosis screening: No symptoms or risk factors identified. Fall Risk IV access (20 points). Gait- Impaired (20 pts.). Total Palomares Fall Scale indicates Low Risk Score (25-44 pts). Fall prevention measures have been instituted. Side Rails Up X 2 Placed close to Nursing Station Frequent Obs/Assesments occuring Family Present and informed to notify staff if they need to leave bedside As available Patient and Family Educated on Fall Prevention Program and strategies. Assessment: 16:15 Reassessment: No changes from previously documented assessment. Patient and/or family ll1 updated on plan of care and expected duration. Pain level reassessed. Patient is alert, oriented x 3, equal unlabored respirations, skin warm/dry/pink. 17:30 Reassessment: No changes from previously documented assessment. Abscess to R thigh ll1 popped while going to restroom. Bloody-pus started draining down leg onto floor. FRED Phan informed. Approximately 100 ml of serosanguinous fluid. 18:30 Reassessment: No changes from previously documented assessment. Patient and/or family ll1 updated on plan of care and expected duration. Pain level reassessed. Patient is alert, oriented x 3, equal unlabored respirations, skin warm/dry/pink. 19:15 Reassessment: Patient appears in no apparent distress at this time. Patient and/or jb4 family updated on plan of care and expected duration. Pain level reassessed. Patient is alert, oriented x 3, equal unlabored respirations, skin warm/dry/pink. 20:25 Reassessment: Patient appears in no apparent distress at this time. Patient and/or jb4 family updated on plan of care and expected duration. Pain level reassessed. Patient is alert, oriented x 3, equal unlabored respirations, skin warm/dry/pink. Attempted to call report, instructed to wait for call back. Vital Signs: 15:14 BP 149 / 71; Pulse 86; Resp 18; Temp 98.4(O); Pulse Ox 91% on R/A; Weight 63.5 kg; ll1 Height 5 ft. 2 in. (157.48 cm); Pain 6/10; 16:26 BP 134 / 58; Pulse 72; Resp 17; Pulse Ox 94% on R/A; ll1 17:50 BP 147 / 72; Pulse 81; Resp 16; Pulse Ox 94% on R/A; ll1 18:42 BP 139 / 62; Pulse 78; Resp 16; ll1 19:15 BP 147 / 64; Pulse 75; Resp 16; Pulse Ox 95% on R/A; jb4 20:30 BP 156 / 69; Pulse 87; Resp 16; Pulse Ox 97% on R/A; jb4 15:14 Body Mass Index 25.61 (63.50 kg, 157.48 cm) ll1 ED Course: 15:13 Patient arrived in ED. ll1 15:15 Sonny Dias PA is PHCP. cp 15:15 Tyler Brennan MD is Attending Physician. cp 15:16 Triage completed. ll1 15:21 Arm band placed on Patient placed in an exam room, on a stretcher. ll1 15:30 Inserted saline lock: 22 gauge in right hand, using aseptic technique. Blood collected. ll1 15:45 Second set of blood cultures drawn by wy. ll1 15:56 Frederic Rapp RN is Primary Nurse. ll1 15:57 Wound Culture Sent. ll1 16:29 Patient has correct armband on for positive identification. Bed in low position. Call ll1 light in reach. Side rails up X2. Client placed on continuous cardiac and pulse oximetry monitoring. NIBP monitoring applied. 16:56 US Extrmty Nonvasular Limited In Process Unspecified. EDMS 17:03 Oren Kinney MD is Hospitalizing Provider. cp 17:40 No provider procedures requiring assistance completed. Patient admitted, IV remains in ll1 place. Dressings: non-adherent dressing x 1 right leg Tube gauze X 1; right leg 4X4s X 2; right leg. 17:52 SARS RAPID Sent. ll1 18:11 Urine Microscopic Only Sent. ll1 18:15 Wound Culture Sent. ll1 19:41 Primary Nurse role handed off by Frederic Rapp, TANJA 20:26 Eliezer Low, TANJA is Primary Nurse. jb4 Administered Medications: 16:11 Drug: morphine 2 mg Route: IVP; Infused Over: 4 mins; Site: right hand; ll1 17:51 Follow up: Response: No adverse reaction; Pain is decreased; RASS: Alert and Calm (0) ll1 17:10 Drug: vancoMYCIN 1 grams Route: IVPB; Infused Over: 2 hrs; Site: left hand; ll1 19:26 Drug: Cefepime 1 grams Route: IVPB; Rate: 200 ml/hr; Infused Over: 30 mins; Site: right jb4 forearm; 20:34 Not Given (Patient Refused): morphine 2 mg IVP once over 4 mins jb4 Medication: 16:29 VIS not applicable for this client. ll1 Outcome: 17:03 Decision to Hospitalize by Provider. yash 20:43 Admitted to Med/surg accompanied by neyda, via stretcher, room 2041, with chart, Report jb4 called to [place] 20:43 Condition: stable 20:43 Discharge instructions given to patient, Instructed on the need for admit, Demonstrated understanding of instructions. 20:43 Patient left the ED. jb4 Signatures: Dispatcher [employer] EDHI Sonny Dias PA PA cp Bryson, James, RN RN jb4 Frederic Rapp RN RN 1 Anne Canales
--- NOTE | 2022-06-28 17:07 | RAD REPORT ---
EXAM DESCRIPTION: US - Extremity Nonvascular Limited - 06/28/2022 4:55 pm CLINICAL HISTORY: SWELLING, draining wound COMPARISON: No comparisons FINDINGS: In the posterior right thigh area of concern sonographic evaluation shows a 6-7 centimeter area of heterogeneous hypoechoic material believed to be large abscess. There is edema in the surrou nding tissues. IMPRESSION: Posterior right thigh abscess
[2022-06-28] MEDS ORDERED: CEFEPIME 1 GM/VIAL ONE (17:12)
[2022-06-28] MEDS ORDERED: NA CHLORIDE 0.9% 100 ML IV ONE (17:12)
[2022-06-28 18:05] LABS: SARS-CoV-2 Antigen Rapid Res Negative (Negative)
--- NOTE | 2022-06-28 18:09 | P.HP ---
Certification for Inpatient Patient admitted to: Inpatient With expected LOS: >2 Midnights Patient will require the following post-hospital care: None Practitioner: I am a practitioner with admitting privileges, knowledge of patient current condition, hospital course, and medical plan of care. Services: Services provided to patient in accordance with Admission requirements found in Title 42 Section 412.3 of the Code of Federal Regulations <Ozzie Ellis - Last Filed: 06/28/22 18:06> Patient History Date of Service: 06/28/22 Reason for admission: RLE cellulitis/abscess History of Present Illness: 72-year-old female with history of COPD, hypertension, hyperlipidemia, hypothyroidism, GERD, Parkinson's, schizophrenia presents emergency department for right lower extremity cellulitis/abscess feel the patient therapy. She noticed area of infection to the right posterior thigh approximate 1 week ago she has been on Bactrim since 06/23/2022 with continued worsening of infection. She sent to the emergency department for evaluation. She was evaluated here in the emergency department labs were significant for leukocytosis white blood cell count 12.4 hemoglobin 10.6 medic at 32.5 creatinine 1.44 GFR 39 procalcitonin 1.3 ultrasound was obtained of the area which revealed a 6 to 7 cm area of heterogenous hypoechoic material believed to be a large abscess with edema in the surrounding tissues to the posterior right thigh. ED provider discussed case with general surgery who recommends admission, IV antibiotics n.p.o. to midnight for likely incision and drainage. - Past Medical/Surgical History -: COPD -: Hypertension -: Hyperlipidemia -: GERD -: Hypothyroidism -: Parkinson's -: Schizophrenia -: Psychosocial/ Personal History: Patient is resident of [facility] - Family History Family History: Reviewed- Non-Contributory - Social History Smoking Status: Never smoker Alcohol use: No CD- Drugs: No Caffeine use: Yes Place of Residence: Home <Ozzie Ellis - Last Filed: 06/28/22 18:06> Date of Service: 06/29/22 <Oren Kinney - Last Filed: 06/29/22 17:16> Review of Systems 10-point ROS is otherwise unremarkable Musculoskeletal: Leg Pain Integumentary: As per HPI <Ozzie Ellis - Last Filed: 06/28/22 18:06> Physical Examination - Physical Exam General: Alert, In no apparent distress, Oriented x3 HEENT: Atraumatic, PERRLA, Mucous membr. moist/pink, EOMI, Sclerae nonicteric Neck: Supple, 2+ carotid pulse no bruit, No LAD, Without JVD or thyroid abnormality Respiratory: Clear to auscultation bilaterally, Normal air movement Cardiovascular: Regular rate/rhythm, Normal S1 S2 Capillary refill: <2 Seconds Gastrointestinal: Normal bowel sounds, No tenderness Musculoskeletal: Erythema, Tenderness, Warmth Integumentary: Tenderness/swelling, Erythema, Warmth, Other (Induration/abscess right posterior thigh) Neurological: Normal speech, Normal strength at 5/5 x4 extr, Normal tone, Normal affect - Studies Laboratory Data (last 24 hrs) 06/28/22 15:30: PT 11.3, INR 1.03 06/28/22 15:30: WBC 12.40 H, Hgb 10.6 L, Hct 32.5 L, Plt Count 398 06/28/22 15:30: Sodium 139, Potassium 4.6, BUN 34 H, Creatinine 1.44 H, Glucose 100, Magnesium 2.3 <Ozzie Ellis - Last Filed: 06/28/22 18:06> - Studies Microbiology Data (last 24 hrs): 06/28/22 15:25 Wound - Right Thigh Gram Stain - Final <Oren Kinney - Last Filed: 06/29/22 17:16> Assessment and Plan - Plan Assessment: Purulent cellulitis/abscess right posterior thighfailed outpatient management Hypertension Hyperlipidemia Hypothyroidism GERD Schizophrenia Parkinson disorder Plan: Purulent cellulitis/abscess right posterior thighfailed outpatient management: SIRS criteria present 1 out of 4 with leukocytosis, n.p.o. after midnight with surgical consult, continue IV antibiotics. Patient was on Bactrim since 06/23/2022 without improvement. Appreciate input from general surgery suspect patient will need incision/drainage. Hypertension: Continue home medications. Hyperlipidemia: Continue home medications. Hypothyroidism: Continue home medications. GERD: Continue home medications. Schizophrenia: Continue home medications. Parkinson disorder: Continue home medications. DVT PPX: SCD Code status: Full Discharge Plan: Home Plan to discharge in: 72 Hours - Advance Directives Does patient have a Living Will: No Does patient have a Durable POA for Healthcare: No - Code Status/Comfort Care Code Status Assessed: Yes (Full code) Critical Care: No Time Spent Managing Pts Care (In Minutes): 70 <Ozzie Ellis - Last Filed: 06/28/22 18:06> Physician Review: Patient Assessed, Agree with Above Assessment and Plan <Oren Kinney - Last Filed: 06/29/22 17:16>
[2022-06-28 18:10] LABS: Urine Blood Negative (Negative); Urine Glucose Negative (Negative); Urine Protein Negative (Negative); Urine pH 6.5 (5.0-7.0)
[2022-06-28 18:31] LABS: Urine Crystals Unidentified Few /HPF (None Seen); Urine Mucus Slight /HPF (None Seen); Urine RBC <5 /HPF (None Seen)
[2022-06-28] MEDS ORDERED: MORPHINE 2 MG/ML SYR IV PRN (20:55)
[2022-06-28] MEDS ORDERED: MELATONIN 5 MG TABLET PO PRN (20:55)
[2022-06-28] MEDS: MELATONIN 5 MG TABLET PO SCH (23:01)
[2022-06-28 23:33] VITALS: BMI 26.0
[2022-06-29] MEDS: CEFEPIME 1 GM in NA CHLORIDE 0.9% 100 ML IV SCH ×2 (06:31→18:01)
[2022-06-29 07:02] LABS: Absolute Lymphocytes (CBC) 2.6 K/uL (0.7-4.9); Hematocrit 31.8 % (36.0-45.0); Lymphocytes % 21.5 % (15.3-44.8); MCV 87.5 fL (80-100); MPV 7.8 fL (7.6-11.3); RBC Red Blood Cell Count 3.64 M/uL (3.86-4.86)
[2022-06-29 07:22] LABS: Albumin 2.4 g/dL (3.4-5.0); Bilirubin Total 0.3 mg/dL (0.2-1.0); Potassium 4.9 mmol/L (3.5-5.1); Protein, Total 6.6 g/dL (6.4-8.2)
[2022-06-29] MEDS ORDERED: INFLUENZA VACCINE (for 6+ mo) 0.5 ML DOSE IMVAC ONE (08:00)
[2022-06-29] MEDS ORDERED: Ringers Lactate 1,000 ML IV ONE (09:44)
[2022-06-29] MEDS ORDERED: MIDAZOLAM HCL 2 MG/2 ML INJ ONE (10:06)
[2022-06-29] MEDS ORDERED: LIDOCAINE 2% MPF 5 ML VIAL ONE (10:06)
[2022-06-29] MEDS ORDERED: propofoL 200 MG/20 ML VIAL IV ONE (10:06)
[2022-06-29] MEDS ORDERED: FENTANYL CITR 100 MCG/2 ML ONE (10:06)
[2022-06-29] MEDS ORDERED: ONDANSETRON 4 MG/2 ML VIAL ONE (10:06)
--- NOTE | 2022-06-29 10:51 | P.OP ---
Date of Service: 06/29/22 Preop diagnosis: Abscess and cellulitis right lateral thigh Postop diagnosis: Same Procedure performed: Incision, drainage and debridement right lateral thigh abscess Surgeon: Vivek Cramer MD Well Drill Operator Helper Cable Tool: None Estimated blood loss: Minimal Specimen: Pus and debridement tissue Findings: As above Anesthesia: General Complications: None Drains: None Fluids and blood products: Nonapplicable Disposition: Recovery room Operative note: Patient brought to the OR and placed in the supine position. General anesthesia begun. Patient placed in the left lateral position. Patient prepped and draped in usual sterile fashion. Marcaine 0.5% infiltrated locally for postop pain control. Then, approximately a 6 x 2 cm incision was made over the most fluctuant part of the abscess. There was a necrotic center present, as well. Pus evacuated and cultures done. Loculations broken. Necrotic tissue debrided. Wound irrigated and bleeding controlled with cautery. Wet-to-dry normal saline sterile dressing change applied. Patient awakened and taken to recovery room in good general condition. CC:
[2022-06-29] MEDS: HYDROMORPHONE HCL 1 MG/ML INJ ONE ×2 (11:09→11:16)
[2022-06-29] MEDS ORDERED: HYDROCODONE/APAP 7.5/325 MG TAB PO PRN (11:23)
[2022-06-29] MEDS ORDERED: HYDROMORPHONE HCL 1 MG/ML INJ ONE (11:27)
--- NOTE | 2022-06-29 11:56 | PREOPCON ---
Date of Consultation: 06/28/2022 Reason For Consultation: Infection right thigh. History Of Present Illness: The patient is a 72-year-old female, a senior living patient that I was c ontacted from [place] regarding infection of her right thigh. I was given some pictures to look at and it appeared, the patient had developing abscess. The patient states that the infection had been there for about a week and she was started on antibiotics about 5 days ago and it has not gotten bett er. While in the ER, she started to have some minimal purulent discharge from the area. Ultrasound was done in the ER which showed an abscess 5-6 cm. I was asked to consult on this patient. She is a wake, alert. Denies any fever or chills. States that the pain is a little better after drainage occ urred spontaneously. She has never had surgery there. She denies any trauma or insect bite to that region. Review of Systems: Otherwise unremarkable. Past Medical History: COPD, hypertension, hyperlipidemia, GERD, hypothyroidism, Parkinson disease, s chizophrenia. Past Surgical History: . Patient does not smoke or drink. Allergies: NONE. Family History: Noncontributory. Physical Examination: Vital Signs: Stable. Afebrile. General: She is awake, alert, and oriented x3. Head and Neck: No masses. Chest: Clear. Heart: S1, S2. Abdomen: Soft. Neuro: Nonfocal. Extremities: Neurovascularly intact. On the right mid lateral thigh, there is approximately a 6 x 8 cm area of fluctuance with surrounding edema and induration and greenish discharge seen in the dress ing. Laboratory Data: White count is 12,000 this morning. Platelets are 434. INR is within normal limit s. Chemistry reviewed. Electrolytes are essentially unremarkable. Procalcitonin however is 1.30. Assessment: Right thigh abscess and cellulitis. Recommendations: N.p.o. IV antibiotics. To the OR for incision, drainage, and debridement right th igh abscess. The patient understands the risks, benefits, and alternatives and agrees to procedure. /MODL Voice ID: [id number] Report ID: [id number]
[2022-06-29] MEDS: ONDANSETRON 4 MG/2 ML VIAL IV PRN ×2 (12:51→19:52)
--- NOTE | 2022-06-29 13:57 | EKG ---
Test Date: 2022-06-28 Test Time: 16:22:50 Abalone Processor: CHAR MEASUREMENT RESULTS: Intervals: Rate: 71 AR: 148 QRSD: 86 QT: 438 QTc: 475 [place]: P: 57 AR: 148 QRS: 42 T: 66 INTERPRETIVE STATEMENTS: Normal sinus rhythm Nonspecific ST abnormality Abnormal ECG No previous ECG available for comparison Electronically Signed On 06-29-22 13:55:38 [employer]OR[employer] DEPARTMENT SPECIALIST by Jefferson Palacios
--- NOTE | 2022-06-29 17:19 | P.PN ---
Subjective Date of Service: 06/29/22 Chief Complaint: RLE cellulitis/abscess She was seen post-surgery. She was doing well and stated that her pain was well controlled. She currently grades her pain a 1/10 in severity. She denies any particular concerns at this time. Review of Systems 10-point ROS is otherwise unremarkable Musculoskeletal: Leg Pain (right thigh) Neurological: Weakness, Incoordination, Other (Parkinson's) Physical Examination - Vital Signs Temperature: 97.3 F Blood Pressure: 123/63 Pulse: 67 Respirations: 14 Pulse Ox (%): 96 - Physical Exam General: Alert, In no apparent distress, Oriented x3 HEENT: Atraumatic, Mucous membr. moist/pink, EOMI, Sclerae nonicteric Neck: Supple Respiratory: Clear to auscultation bilaterally, Normal air movement Cardiovascular: Regular rate/rhythm, Normal S1 S2, No gallops, No rubs, No murmurs, Edema (trace) Gastrointestinal: Normal bowel sounds, Soft and benign, Non-distended, No tenderness, No rebound, No guarding Musculoskeletal: No clubbing Integumentary: Other (right-thigh in clean surgical dressing) Neurological: Other (Appears to have tardive dyskinesia with pill-rolling tremor) - Studies Microbiology Data (last 24 hrs): 06/28/22 15:25 Wound - Right Thigh Gram Stain - Final Assessment And Plan - Plan # Right Posterior Thigh Purulent Cellulitis with Abscess - Failed outpatient management with 5 days of sulfamethoxazole-trimethoprim - Does not meet sepsis criteria - General Surgery consulted and spoke with Dr. Cramer - recommendations appreciated - S/P incision and drainage today - Continue Vancomycin + Cefepime - Await culture results # Parkinson's Disease # Schizophrenia # Hypertension # Hyperlipidemia # Hypothyroidism # Gastroesophageal Reflux Disease - Resume home medications once reconciled Oren Kinney M.D.
[2022-06-29] MEDS: FAMOTIDINE 20 MG TAB PO SCH (19:51)
[2022-06-29] MEDS: MELATONIN 5 MG TABLET PO SCH (19:52)
[2022-06-30 00:44] VITALS: O2SAT 96
[2022-06-30] MEDS: ONDANSETRON 4 MG/2 ML VIAL IV PRN ×2 (02:14→08:20)
[2022-06-30] MEDS ORDERED: VANCOMYCIN 1 GM in NA CHLORIDE 0.9% 250 ML IVPB SCH (05:00)
[2022-06-30 05:50] LABS: Albumin 2.5 g/dL (3.4-5.0); Bilirubin Total 0.4 mg/dL (0.2-1.0); Potassium 5.1 mmol/L (3.5-5.1); Protein, Total 6.7 g/dL (6.4-8.2)
[2022-06-30 05:52] LABS: Absolute Lymphocytes (CBC) 2.2 K/uL (0.7-4.9); Hematocrit 31.1 % (36.0-45.0); Lymphocytes % 20.5 % (15.3-44.8); MCV 87.3 fL (80-100); MPV 7.5 fL (7.6-11.3); RBC Red Blood Cell Count 3.57 M/uL (3.86-4.86)
[2022-06-30] MEDS ORDERED: PROMETHAZINE INJ 25 MG/ML AMP IV ONE (06:31)
[2022-06-30] MEDS ORDERED: PROMETHAZINE INJ 25 MG/ML AMP ONE (06:36)
[2022-06-30] MEDS: FAMOTIDINE 20 MG TAB PO SCH (08:15)
[2022-06-30] MEDS ORDERED: CHLORHEXIDINE GLUCO 4% 120 ML TOP SCH (10:00)
[2022-06-30 12:13] VITALS: BP 149/67; TEMP 98
--- NOTE | 2022-06-30 12:37 | P.DS ---
Admission Date: 06/28/22 Discharge Date: 06/30/22 Disposition: TRANSFER TO LONG TERM Discharge Condition: GOOD Reason for Admission: RLE cellulitis/abscess Consultations: 1. General Surgery 2. Infectious Diseases Procedures: - 06/29/2022 - Incision, Drainage, and Debridement Right Lateral Thigh Abscess Hospital Course: DIAGNOSES: # Right Posterior Thigh Purulent Cellulitis with Methicillin-Resistant Staphyloccocus Aureus Abscess # Acute Kidney Injury (resolved) # Parkinson's Disease # Schizophrenia # Hypertension # Hyperlipidemia # Hypothyroidism # Gastroesophageal Reflux Disease HOSPITAL COURSE: Ms. Delma Evans is a pleasant 72 year old female with a past medical history significant for Parkinson's disease, schizophrenia, hypertension, hyperlipidemia, and hypothyroidism who was admitted to the [facility] on 06/28/2022 for right thigh cellulitis. She was admitted to the Medicine service. General Surgery was consulted and she was evaluated by Dr. Cramer. On 06/29/2022, she underwent incision and drainage with debridement of the right thigh abscess. The wound cultures returned positive for MRSA, so Infectious Diseases was consulted. She was evaluated by Dr. Koroma. It was recommended that she be discharged on 14 days of doxycycline and sulfamethoxazoletrimethoprim and continued wound care at [facility]. Her potassium was borderline at 5.1. I called [facility] and recommended a repeat potassium level in the next day or so. The bone drier operator (Ms. Sugar Hager) took note of this and stated that she will relay this to Dr. Araya. On 06/30/2022, she was seen on rounds and deemed medically stable for discharge. She was given the opportunity to ask questions and reported no further questions. Furthermore, all questions were answered to the best of my ability. A copy of this discharge summary will be sent to the above providers to facilitate continuity of care. Today, I personally spent 20 minutes on her case, of which greater than 50% of the time was spent in patient education, counseling, and coordination of care as described above. - Physical Exam General: Alert, In no apparent distress, Oriented x3 HEENT: Atraumatic, Mucous membr. moist/pink, EOMI, Sclerae nonicteric Neck: Supple Respiratory: Clear to auscultation bilaterally, Normal air movement Cardiovascular: Regular rate/rhythm, Normal S1 S2, No gallops, No rubs, No murmurs, Edema (trace) Gastrointestinal: Normal bowel sounds, Soft and benign, Non-distended, No tenderness, No rebound, No guarding Musculoskeletal: No clubbing Integumentary: Other (right-thigh in clean surgical dressing) Neurological: Other (Appears to have tardive dyskinesia with pill-rolling tremor) Vital Signs/Physical Exam: Temp Pulse Resp BP Pulse Ox 98.0 F 72 16 149/67 H 98 06/30/22 12:00 06/30/22 12:00 06/30/22 12:00 06/30/22 12:00 06/30/22 12:00 Laboratory Data at Discharge: WBC 10.70 K/uL (4.3-10.9) 06/30/22 04:10 Hgb 10.8 g/dL (12.0-15.0) L 06/30/22 04:10 Hct 31.1 % (36.0-45.0) L 06/30/22 04:10 Plt Count 481 K/uL (152-406) H 06/30/22 04:10 PT 11.3 SECONDS (9.5-12.5) 06/28/22 15:30 INR 1.03 06/28/22 15:30 Sodium 138 mmol/L (136-145) 06/30/22 04:10 Potassium 5.1 mmol/L (3.5-5.1) 06/30/22 04:10 BUN 15 mg/dL (7-18) 06/30/22 04:10 Creatinine 0.93 mg/dL (0.55-1.3) 06/30/22 04:10 Glucose 86 mg/dL (74-106) 06/30/22 04:10 Magnesium 2.3 mg/dL (1.8-2.4) 06/28/22 15:30 Total Bilirubin 0.4 mg/dL (0.2-1.0) 06/30/22 04:10 AST 15 U/L (15-37) 06/30/22 04:10 ALT 30 U/L (12-78) 06/30/22 04:10 Alkaline Phosphatase 130 U/L (45-117) H 06/30/22 04:10 Home Medications: Doxycycline Hyclate 100 mg PO BID 14 Days #28 06/30/22 Mupirocin Oint [Bactroban 2% Ointment*] 1 appl TOP BID tube 06/30/22 Sulfamethoxazole/Trimethoprim [Bactrim Ds Tablet] 1 tab PO BID 14 Days #28 New Medications: Sulfamethoxazole/Trimethoprim [Bactrim Ds Tablet] 1 tab PO BID 14 Days #28 Doxycycline Hyclate 100 mg PO BID 14 Days #28 Physician Discharge Instructions: 1. Please follow-up with General Surgery (Dr. Cramer) for your wound care at [facility]: Renal Activity: Fall precautions Followup: Vivek Carmer MD [Primary Care Provider] - 1 Week Adolfo Araya MD [OUTSIDE PHYSICIAN] - Time spent managing pt's care (in minutes): 20
--- NOTE | 2022-06-30 15:30 | CON ---
History Of Present Illness: This is a 72-year-old female, intermediate resident. I was consulted to evaluate right posterior thigh abscess and cellulitis. The patient is a intermediate resident and w as brought in after she was found to have abscess to the right posterior thigh. She has significant past medical history of COPD, hypertension, hyperlipidemia, hypothyroidism, GERD, Parkinson disease, schizophrenia, and tremor. The patient is currently on IV antibiotic, vancomycin. Her wound culture s are growing MRSA. Past Medical History: As per HPI. Social History: Former tobacco user. No alcohol use. Family History: Noncontributory. Medications: Vancomycin. See MAR for other medications. Allergies: NO KNOWN DRUG ALLERGIES. Review of Systems: A 10-point review was performed. Physical Examination: General: This is a 72-year-old female, lying in bed, not in any acute cardiopulmonary distress. Vital Signs: Temperature 97.5, pulse 84, respirations 14, blood pressure 156/59. HEENT: Unremarkable. Neck: Supple. Lungs: Clear to auscultation. Heart: S1, S2. Regular. Abdomen: Soft, nontender. Bowel sounds present. Extremity: Right posterior thigh with erythematous area, increased warmth and post surgical debridem ent wound noted with 95% granulation tissue and 5% slough. Laboratory Data: Shows WBC 10.7 down from 12.4, hemoglobin 10.8, platelets are 481. Chemistry shows sodium 138, potassium 5.1, chloride 110, bicarb 20, BUN 15, creatinine 0.9, glucose 66, glucose 86, albumin is 2.5. Procalcitonin is 1.3. Micro data shows wound cultures growing MRSA. Assessment And Plan: This is a 72-year-old female with multiple medical problems including Parkinson disease, hypertension, chronic obstructive pulmonary disease, hyperlipidemia, gastroesophageal reflu x disease, hypothyroidism, and schizophrenia, coming in with right thigh abscess, status post debride ment, wound cultures are growing methicillin-resistant Staphylococcus aureus. The patient to continu e antibiotic for 2 weeks as per surgical team. The patient will be sent home on Bactrim and doxycycl ine. If not improved, we will recommend to switch to vancomycin and pack the wound with iodoform gau ze, monitor for signs of infection with WBC and fever trends at least twice a week while the patient is on antibiotic. Monitor platelets, kidney function and liver function as the patient is on doxycyc line and Bactrim. We will follow the patient as needed. Thank you, Dr. Kinney for consult. NF/DINAH Voice ID: [id number] Report ID: [id number]
[2022-06-30] MEDS ORDERED: MUPIROCIN 2% OINT 22GM TUBE TOP SCH (21:00)
[2022-07-01] MEDS ORDERED: VANCOMYCIN 1 GM in NA CHLORIDE 0.9% 250 ML IVPB SCH (06:00)
== END 2022-06-30 15:13 | DRG 571 ==
LOC: ER 15:09 → ERHOLD 18:00 → 2ND 19:26
PROVIDERS: ADMIT Internal Medicine; ATTEND Internal Medicine
PROC: 0JBL0ZZ Excision of Right Upper Leg Subcutaneous Tissue and Fascia, Open Approach (ICD-10-PCS; principal; 2022-06-29 09:45)
DX: L03.115 Cellulitis of right lower limb (principal); N17.9 Acute kidney failure, unspecified; L02.415 Cutaneous abscess of right lower limb; G20 Parkinson's disease; E78.5 Hyperlipidemia, unspecified; J44.9 Chronic obstructive pulmonary disease, unspecified; K21.9 Gastro-esophageal reflux disease without esophagitis; F20.9 Schizophrenia, unspecified; E03.9 Hypothyroidism, unspecified; B95.62 Methicillin resistant Staphylococcus aureus infection as the cause of diseases classified elsewhere; Z87.891 Personal history of nicotine dependence; Z20.822 Contact with and (suspected) exposure to COVID-19
CPT/HCPCS: 36415; 76882; 80048; 80053; 80202; 81003; 81015; 83605; 83735; 84145; 85025; 85610; 87040; 87070; 87075; 87077; 87186; 87205; 87811; 88304; 93005; 99285; J0692; J1170; J2001; J2250; J2270; J2405; J2550; J2704; J3010; J3370; J7050; J7120

== ENCOUNTER 2024-04-06 13:39 | Inpatient (IN) | payer OTHER ==
[2024-04-06] MEDS ORDERED: LEVALBUTEROL 1.25 MG/3 ML NEB ONE (14:13)
[2024-04-06] MEDS ORDERED: IPRATROPIUM BROM 0.5MG/2.5ML ONE (14:13)
[2024-04-06] MEDS ORDERED: METHYLPREDNISOLONE 125 MG INJ ONE (14:13)
[2024-04-06] MEDS ORDERED: MAGNESIUM SULFATE 1 gm IVPB 1 GM/100 ML BAG IV ONE (14:13)
[2024-04-06 15:03] LABS: Absolute Eosinophils 0.1 K/uL (0-0.5); Absolute Lymphocytes (CBC) 1.4 K/uL (0.7-4.9); Absolute Monocytes 1.1 K/uL (0.1-1.3); Absolute Neutrophil 12.4 K/uL (1.8-8.0); Basophils % 0.2 % (0-1.3); Eosinophils % 0.4 % (0-4.4); Hematocrit 29.4 % (36.0-45.0); Hemoglobin 8.8 g/dL (12.0-15.0); Lymphocytes % 9.2 % (15.3-44.8); MCH 20.5 pg (27.0-35.0); MCHC 29.8 g/dL (32.0-36.0); MCV 68.6 fL (80-100); MPV 8.4 fL (7.6-11.3); Monocytes % 7.1 % (3.3-12.3); Neutrophils % 83.1 % (41.7-73.7); Platelets 314 thou/uL (152-406); RBC Red Blood Cell Count 4.29 M/uL (3.86-4.86); Red Cell Distribution Width 19.4 % (12.1-15.2)
[2024-04-06 15:11] LABS: PT Prothrombin Time 11.9 SECONDS (9.4-12.5); Protime INR 1.06
[2024-04-06 15:27] LABS: SARS-CoV-2 Antigen CONTROL BLUE LINE VIS/BG OK
[2024-04-06 15:28] LABS: SARS-CoV-2 Antigen Rapid Res Negative (Negative)
[2024-04-06 15:28] LABS: Anion Gap 7.1 mEq/L (5.0-15.0); Potassium 4.1 mEq/L (3.5-5.1); Troponin High Sensitivity 9.1 pg/mL (<58.9)
[2024-04-06 16:26] LABS: Anisocytosis 2+; Blood Morphology Comment NOTED (NOT SEEN); Hypochromasia 2+; Platelet Estimate ADEQ; White Blood Cell Scan OK (OK)
--- NOTE | 2024-04-06 16:37 | RAD REPORT ---
EXAM DESCRIPTION: Maryana Single View04/06/2024 2:31 pm CLINICAL HISTORY: DYSPNEA COMPARISON: No comparisons TECHNIQUE: Portable AP view of the chest. FINDINGS: Patchy opacities in the right lung, with mid and lower predominance. Patient rotation some what limits evaluation No pneumothorax or effusion. The cardiomediastinal contours are unremarkable. IMPRESSION: Patchy right mid to lower lung opacities, concerning for pneumonia.
--- NOTE | 2024-04-06 16:39 | ER ---
Nurse's Notes [facility] Name: Delma Evans Age: 74 yrs Sex: Female : 1950 Arrival Date: 04/06/2024 Time: 13:39 Bed 2 Private MD: Diagnosis: COPD/ Chronic obstructive pulmonary disease with (acute) exacerbation;Dyspnea, unspecified;Pneumonia in diseases classified elsewhere Presentation: 04/06 13:40 Chief complaint: EMS states: pt c/o SOB after breakfast, hx of COPD, EMS reports pt was iw 92% on RA, placed on 2 L NC and up to 98%, pt feels better now. Coronavirus screen: At this time, the client does not indicate any symptoms associated with coronavirus-19. Ebola Screen: No symptoms or risks identified at this time. Risk Assessment: Do you want to hurt yourself or someone else? Patient reports no desire to harm self or others. Onset of symptoms was April 06, 2024. 13:40 Method Of Arrival: EMS: [facility] iw 13:40 Acuity: JOANNA 3 iw 13:50 Initial Sepsis Screen: Does the patient meet any 2 criteria? No. Patient's initial iw sepsis screen is negative. Does the patient have a suspected source of infection? No. Patient's initial sepsis screen is negative. Triage Assessment: 13:50 General: Appears in no apparent distress. Behavior is calm, cooperative. Respiratory: iw Reports shortness of breath on exertion Onset: The symptoms/episode began/occurred today, the patient has mild shortness of breath. Historical: - Allergies: 13:41 No Known Allergies; iw - PMHx: 13:41 Anxiety; COPD; GERD; Hypercholesterolemia; Hypertensive disorder; Hypothyroidism; iw Parkinson's disease; Schizophrenia; - Family history:: not pertinent. - Hospitalizations: : No recent hospitalization is reported. Screenin:22 [facility] ED Fall Risk Assessment (Adult) History of falling in the last 3 months, iw including since admission Confusion or Disorientation Yes (5 pts) Intoxicated or Sedated No (0 pts) Impaired Gait Yes (1 pt) Mobility Assist Device Used Yes (1 pt) Altered Elimination Yes (1 pt) Score/Fall Risk Level 3 or more points = High Risk Oriented to surroundings, Maintained a safe environment. Abuse screen: Denies injuries from another. Nutritional screening: No deficits noted. Tuberculosis screening: No symptoms or risk factors identified. Assessment: 13:50 General: Appears in no apparent distress. comfortable, Behavior is calm, cooperative. iw Pain: Denies pain. Neuro: Level of Consciousness is awake, alert, obeys commands, Oriented to person, place, time. Cardiovascular: Patient's skin is warm and dry. Rhythm is sinus tachycardia. Respiratory: Reports shortness of breath on exertion Airway is patent Respiratory effort is even, labored, Respiratory pattern is regular, Derm: Skin is fragile, Skin is pink, warm \T\ dry. Musculoskeletal: Range of motion: intact in all extremities. 15:22 Reassessment: Patient appears in no apparent distress at this time. Patient and/or iw family updated on plan of care and expected duration. Pain level reassessed. Vital Signs: 13:42 BP 118 / 75; Pulse 116; Resp 20; Temp 97.6; Pulse Ox 98% on NC; FiO2 2 %; iw 15:31 BP 118 / 50; Pulse 95; Resp 19; Pulse Ox 100% on 2 lpm NC; iw ED Course: 13:40 Patient arrived in ED. iw 13:41 Tyler Brennan MD is Attending Physician. rn 13:41 Triage completed. iw 13:42 Carina Pepe, TANJA is Primary Nurse. iw 13:42 Arm band placed on. iw 14:33 XRAY CXR (1 view) In Process Unspecified. EDMS 14:40 Inserted saline lock: 22 gauge in right forearm, using aseptic technique. Blood tl4 collected. Flushed with 10 mL NS. 15:22 Flu Sent. iw 15:22 SARS RAPID Sent. iw 15:23 Patient has correct armband on for positive identification. Client placed on continuous iw cardiac and pulse oximetry monitoring. NIBP monitoring applied. campus monitor on. 16:38 Eloy Dukes MD is Hospitalizing Provider. rn 18:38 No provider procedures requiring assistance completed. Patient admitted, IV remains in iw place. Administered Medications: 14:30 Drug: MethylPrednisoLONE IVP 125 mg IVP once Route: IVP; Site: right forearm; iw 15:15 Follow up: Response: No adverse reaction; Marked relief of symptoms iw 14:50 Drug: Magnesium Sulfate IVPB 1 grams IVPB once over 1 hrs Route: IVPB; Infused Over: 1 iw hrs; Site: right forearm; 15:50 Follow up: IV Status: Completed infusion iw 14:50 Drug: Ipratropium Inhalation Aerosol 0.5 mg Inhalation once Route: Inhalation; iw 15:14 Drug: Levalbuterol Inhalation 1.25 mg Inhalation once Route: Inhalation; iw 15:14 Drug: Levalbuterol Inhalation 1.25 mg Inhalation once Route: Inhalation; iw 17:56 Drug: Rocephin IV 1 grams IV at calculated rate once; Given slow IV push per pharmacy iw instructions Route: IV; Rate: calculated rate; Site: right forearm; 18:00 Follow up: IV Status: Completed infusion iw 17:56 Drug: Zithromax IVPB 500 mg IVPB once over 1 hrs; mix in 250 mL NS Route: IVPB; Infused iw Over: 1 hrs; Site: right forearm; 19:51 Follow up: IV Status: Infusion continued upon admission iw Medication: 14:00 VIS not applicable for this client. Outcome: 16:38 Decision to Hospitalize by Provider. rn 18:38 Admitted to Med/surg accompanied by tech, via wheelchair, iw 18:38 Condition: good 18:38 Discharge instructions given to patient, Instructed on the need for admit, Demonstrated understanding of instructions, 18:39 Patient left the ED. Signatures: Dispatcher [employer] Carina Parra RN RN Tyler Brennan MD MD rn Baxter, Heather, RN RN Ronn Carter RN RN [id number]
--- NOTE | 2024-04-06 16:39 | EDPHYS ---
Physician Documentation [facility] Name: Delma Evans Age: 74 yrs Sex: Female : 1950 Arrival Date: 04/06/2024 Time: 13:39 Bed 2 Private MD: ED Physician Tyler Brennan HPI: 04/06 15:11 This 74 yrs old Female presents to ER via EMS with complaints of Shortness Of Breath. rn 15:11 The patient has shortness of breath at rest, with light activity. rn 15:49 Onset: The symptoms/episode began/occurred this morning. Duration: The symptoms are rn continuous. The patient's shortness of breath is aggravated by exertion, light activity, is alleviated by rest. Severity of symptoms: At their worst the symptoms were moderate in the emergency department the symptoms have improved. The patient has experienced similar episodes in the past. Patient with COPD, was trying to walk to bathroom at shelter when got very winded, had to sit down to rest, which is where staff found her. Denies fall or trauma. Reports shortness of breath with minimal exertion. Reports has nonproductive cough. Denies fever or chills. Does report generalized weakness.. Historical: - Allergies: 13:41 No Known Allergies; iw - PMHx: 13:41 Anxiety; COPD; GERD; Hypercholesterolemia; Hypertensive disorder; Hypothyroidism; iw Parkinson's disease; Schizophrenia; - Family history:: not pertinent. - Hospitalizations: : No recent hospitalization is reported. ROS: 15:49 Constitutional: Negative for fever, chills, and weight loss, Cardiovascular: Negative rn for chest pain, palpitations, and edema, Respiratory: Positive for cough and shortness of breath Abdomen/GI: Negative for abdominal pain, nausea, vomiting, diarrhea, and constipation, MS/Extremity: Negative for injury and deformity, Skin: Negative for injury, rash, and discoloration, Neuro: Positive for generalized weakness Exam: 14:40 ECG was reviewed by the Attending Physician. rn 15:49 Constitutional: This is a well developed, well nourished patient who is awake, alert, rn mild tachypnea Cardiovascular: Regular rate and rhythm. No pulse deficits. Respiratory: Mild tachypnea, faint expiratory wheezing noted bilaterally Abdomen/GI: Soft, nontender MS/ Extremity: Pulses equal, no cyanosis Neuro: Awake and alert, GCS 15 Vital Signs: 13:42 BP 118 / 75; Pulse 116; Resp 20; Temp 97.6; Pulse Ox 98% on NC; FiO2 2 %; iw 15:31 BP 118 / 50; Pulse 95; Resp 19; Pulse Ox 100% on 2 lpm NC; iw MDM: 13:41 Patient medically screened. rn 16:29 ED course: Patient denies rectal bleeding.. rn 16:36 Differential diagnosis: Anemia Anxiety Reaction Bronchitis CHF exacerbation, Chronic rn Obstructive Pulmonary Disease Myocardial Infarction pneumonia, Pneumothorax pulmonary edema. Data reviewed: vital signs, nurses notes, lab test result(s), EKG, radiologic studies, plain films, and as a result, I will admit patient. Consideration of Admission/Observation Patient was admitted/placed on observation. Escalation of care including admission/observation considered. Care significantly affected by the following chronic conditions: Hypertension, Chronic Obstructive Pulmonary Disease. Counseling: I had a detailed discussion with the patient and/or guardian regarding the historical points, exam findings, and any diagnostic results supporting the discharge/admit diagnosis, lab results, radiology results, the need for further work-up and treatment in the hospital. Response to treatment: the patient's symptoms have mildly improved after treatment, and as a result, I will admit patient. 16:36 ED course: I personally spent 35 minutes engaged in work directly related to the rn individual patient's care. This does not include any time spent performing procedures. The patient has been deemed critically ill because of COPD exacerbation requiring IV steroids with multiple nebulizer medication, IV antibiotics for possible pneumonia, stabilization and admission to the hospital. 16:39 ED course: Lactic acid normal, no need for IV fluid bolus at this time.. rn 04/06 13:42 Order name: BMP; Complete Time: 15:56 rn 04/06 13:42 Order name: Blood Culture Adult (2) rn 04/06 13:42 Order name: CBC with Diff; Complete Time: 16:28 rn 04/06 13:42 Order name: NT PRO-BNP; Complete Time: 15:56 rn 04/06 13:42 Order name: PT-INR; Complete Time: 15:56 rn 04/06 13:42 Order name: Ptt, Activated; Complete Time: 15:56 rn 04/06 13:42 Order name: Troponin HS; Complete Time: 15:56 rn 04/06 13:42 Order name: SARS RAPID; Complete Time: 15:56 rn 04/06 13:42 Order name: Flu; Complete Time: 15:56 rn 04/06 13:43 Order name: Lactate w/ 2H reflex if indic.; Complete Time: 15:56 rn 04/06 15:09 Order name: CBC Smear Scan; Complete Time: 16:28 EDMS 04/06 17:33 Order name: Thyroid Stimulating Hormone EDMS 04/06 17:33 Order name: CBC with Automated Diff EDMS 04/06 17:33 Order name: CBC with Automated Diff EDMS 04/06 17:33 Order name: CBC with Automated Diff EDMS 04/06 17:33 Order name: CBC with Automated Diff EDMS 04/06 17:33 Order name: Comprehensive Metabolic Panel EDMS 04/06 17:33 Order name: Comprehensive Metabolic Panel EDMS 04/06 17:33 Order name: Comprehensive Metabolic Panel EDMS 04/06 17:33 Order name: Comprehensive Metabolic Panel EDMS 04/06 17:33 Order name: Lipid Profile EDMS 04/06 17:33 Order name: Lipid Profile EDMS 04/06 17:33 Order name: Magnesium EDMS 04/06 17:33 Order name: Magnesium EDMS 04/06 17:33 Order name: Magnesium EDMS 04/06 17:33 Order name: Magnesium EDMS 04/06 17:33 Order name: Phosphorus EDMS 04/06 17:33 Order name: Phosphorus EDMS 04/06 17:33 Order name: Phosphorus EDMS 04/06 17:33 Order name: Phosphorus EDMS / 17:33 Order name: Sputum Culture EDMS 04/06 13:42 Order name: XRAY CXR (1 view); Complete Time: 16:39 rn 04/06 13:42 Order name: EKG; Complete Time: 13:43 rn 04/06 17:26 Order name: Social Service Consult EDMS 04/06 13:42 Order name: Cardiac monitoring; Complete Time: 14:10 rn 04/06 13:42 Order name: EKG - Nurse/Tech; Complete Time: 14:10 rn 16 13:42 Order name: IV Saline Lock; Complete Time: 15:22 rn 16 13:42 Order name: Labs collected and sent; Complete Time: 15:22 rn 16 13:42 Order name: O2 Per Protocol; Complete Time: 14:10 rn 04/06 13:42 Order name: O2 Sat Monitoring; Complete Time: 14:10 rn EC:40 Rate is 109 beats/min. Rhythm is regular. QRS Boomer is Normal. [place] interval is normal. rn QRS interval is normal. QT interval is normal. No Q waves. T waves are Normal. No ST changes noted. Clinical impression: Sinus tachycardia. Interpreted by me. Reviewed by me. Administered Medications: 14:30 Drug: MethylPrednisoLONE IVP 125 mg IVP once Route: IVP; Site: right forearm; iw 15:15 Follow up: Response: No adverse reaction; Marked relief of symptoms iw 14:50 Drug: Magnesium Sulfate IVPB 1 grams IVPB once over 1 hrs Route: IVPB; Infused Over: 1 iw hrs; Site: right forearm; 15:50 Follow up: IV Status: Completed infusion iw 14:50 Drug: Ipratropium Inhalation Aerosol 0.5 mg Inhalation once Route: Inhalation; iw 15:14 Drug: Levalbuterol Inhalation 1.25 mg Inhalation once Route: Inhalation; iw 15:14 Drug: Levalbuterol Inhalation 1.25 mg Inhalation once Route: Inhalation; iw 17:56 Drug: Rocephin IV 1 grams IV at calculated rate once; Given slow IV push per pharmacy iw instructions Route: IV; Rate: calculated rate; Site: right forearm; 18:00 Follow up: IV Status: Completed infusion iw 17:56 Drug: Zithromax IVPB 500 mg IVPB once over 1 hrs; mix in 250 mL NS Route: IVPB; Infused iw Over: 1 hrs; Site: right forearm; 19:51 Follow up: IV Status: Infusion continued upon admission iw Disposition: 16:36 Critical Care:. rn Disposition Summary: 04/06/24 16:38 Hospitalization Ordered Notes: Hospitalization Status: Observation rn Provider: Eloy Dukes rn Location: Telemetry/MedSur (observation) rn Condition: Stable rn Problem: an acute exacerbation rn Symptoms: have improved rn Bed/Room Type: Standard rn Room Assignment: 206(04/06/24 17:48) em1 Diagnosis - COPD/ Chronic obstructive pulmonary disease with (acute) exacerbation rn - Dyspnea, unspecified rn - Pneumonia in diseases classified elsewhere rn Forms: - Medication Reconciliation Form rn - SBAR form rn - Leadership Thank You Letter collections attorney time excluding procedures: 16:36 Critical care time: Bedside Care: 35 minutes. Total time: 35 minutes rn Signatures: Dispatcher [employer] EDMS Carina Pepe, Tyler Donald RN, MD MD rn Martinez, Eric em1 Corrections: (The following items were deleted from the chart) 13:43 13:43 BASIC METABOLIC PANEL+C.LAB.BRZ ordered. EDMS EDMS 13:43 13:43 BLOOD CULTURE*+BA.LAB.BRZ ordered. EDMS EDMS 13:43 13:43 CBC+H.LAB.BRZ ordered. EDMS EDMS 13:43 13:43 PROBNP+C.LAB.BRZ ordered. EDMS EDMS 13:43 13:43 PROTIME (+INR)+COAG.LAB.BRZ ordered. EDMS EDMS 13:43 13:43 PTT, ACTIVATED+COAG.LAB.BRZ ordered. EDMS EDMS 13:43 13:43 Troponin High Sensitivity+C.LAB.BRZ ordered. EDMS EDMS 13:43 13:43 SARS-COV-2 Antigen Rapid+I.LAB.BRZ ordered. EDMS EDMS 13:43 13:43 Influenza Screen (A \T\ B)+BA.LAB.BRZ ordered. EDMS EDMS 17:48 16:38 rn em1
[2024-04-06] MEDS ORDERED: AZITHROMYCIN 500 MG INJ IVPB ONE (16:57)
[2024-04-06] MEDS ORDERED: CEFTRIAXONE 1000 MG/VIAL ONE (16:57)
[2024-04-06] MEDS ORDERED: NA CHLORIDE 0.9% 250 ML ONE (16:57)
--- NOTE | 2024-04-06 17:18 | P.HP ---
Certification for Inpatient Patient admitted to: Inpatient With expected LOS: >2 Midnights Patient will require the following post-hospital care: [facility] (resident of SNF) Practitioner: I am a practitioner with admitting privileges, knowledge of patient current condition, hospital course, and medical plan of care. Services: Services provided to patient in accordance with Admission requirements found in Title 42 Section 412.3 of the Code of Federal Regulations <Nina Apodaca Jett - Last Filed: 04/06/24 18:16> Patient History Date of Service: 04/06/24 Reason for admission: COPD exacerbation, fall, pneumonia History of Present Illness: is a 74-year-old female with a past medical history of Hypertension, Hyperlipidemia, Hypothyroidism, Parkinson's, Schizophrenia, anemia, and COPD. She resides at a SNF and was brought to the emergency department today after she was found on the ground at her facility in respiratory distress with hypoxia. She improved in the emergency department after steroids and breathing treatments. We will admit her to the hospital for treatment of this COPD exacerbation, chest x-ray shows possible pneumonia, she does have leukocytosis but lactate is negative. COVID swabs are negative. Home medications list reviewed: Yes - Past Medical/Surgical History Has patient received pneumonia vaccine in the past: Yes Diabetic: No -: COPD -: Hypertension -: Hyperlipidemia -: GERD -: Hypothyroidism -: Parkinson's -: Schizophrenia -: Psychosocial/ Personal History: Patient is resident of [facility] - Social History Smoking Status: Unknown if ever smoked Alcohol use: No CD- Drugs: No Caffeine use: Yes [facility] Residence: [facility] <Mary Ellen Apodacaanyi Frausto - Last Filed: 04/06/24 18:16> Date of Service: 04/06/24 <Eloy Dukes - Last Filed: 04/09/24 15:43> Allergies No Known Allergies Allergy (Verified 04/06/24 23:25) Home Medications: Acetaminophen 2 tab PO Q6H PRN 04/07/24 Acetaminophen [Acetaminophen Extra Strength] 500 mg PO DAILY 04/07/24 Albuterol Neb [Proventil 0.083% Neb Soln] 2.5 mg NEB [id number] #1 box 04/07/24 Atorvastatin Calcium [Lipitor*] 10 mg PO BEDTIME 04/07/24 Benzonatate [Tessalon Perle*] 100 mg PO Q8H PRN 04/07/24 Buspirone HCl [Buspar*] 5 mg PO TID 04/07/24 Codeine/APAP [Tylenol #3*] 1 tab PO TID 04/07/24 Divalproex Sodium [Depakote] 3 tab PO BEDTIME 04/07/24 Ergocalciferol (Vitamin D2) [Vitamin D2] 50,000 unit PO SEECOM 04/07/24 Florinal Oral Capsule 1 cap PO Q6H PRN 04/07/24 Gabapentin 300 mg PO TID 04/07/24 Ipratropium Neb [Atrovent*] 0.5 mg NEB [id number] #1 box 04/07/24 Levothyroxine [Synthroid*] 75 mcg PO [id number] 04/07/24 Mag Hydrox/Aluminum Hyd/Simeth [Mylanta Maximum Strength Liq] 15 ml PO Q6H PRN 04/07/24 Melatonin 3 tab PO BEDTIME 04/07/24 PARoxetine HCL [Paxil] 20 mg PO BEDTIME 04/07/24 PARoxetine HCL [Paxil] 40 mg PO BEDTIME 04/07/24 Pantoprazole Sodium 20 mg PO DAILY 04/07/24 Quetiapine Fumarate [Seroquel] 25 mg PO BID 04/07/24 Quetiapine Fumarate [Seroquel] 100 mg PO BID 04/07/24 Quetiapine Fumarate [Seroquel] 200 mg PO BID 04/07/24 guaiFENesin [Robitussin 100MG/5ML*] 10 ml PO Q4H PRN 04/07/24 levoFLOXacin [Levaquin] 500 mg PO DAILY #5 tab 04/07/24 predniSONE [Deltasone] 20 mg PO DAILY #5 tab 04/07/24 Review of Systems 10-point ROS is otherwise unremarkable General: Weakness Respiratory: Shortness of Breath, SOB with Excertion Neurological: As per HPI <Nina Apodaca Jett - Last Filed: 04/06/24 18:16> Physical Examination - Physical Exam General: Alert, In no apparent distress, Oriented x3 HEENT: Atraumatic, Normocephalic Neck: Supple Respiratory: Normal air movement, Expiratory wheezes Cardiovascular: Normal pulses, Regular rate/rhythm, Normal S1 S2 Capillary refill: <2 Seconds Gastrointestinal: Soft and benign Musculoskeletal: No clubbing Integumentary: No rashes Neurological: Normal speech, Normal tone, Normal affect Lymphatics: No axilla or inguinal lymphadenopathy External genitalia: Deferred Rectal: Deferred - Studies Laboratory Data (last 24 hrs) 04/06/24 04/06/24 04/06/24 14:40 14:40 14:40 WBC 14.90 H Hgb 8.8 L Hct 29.4 L Plt Count 314 PT 11.9 INR 1.06 APTT 25.0 Sodium 139 Potassium 4.1 BUN 21 H Creatinine 1.03 H Glucose 119 H Microbiology Data (last 24 hrs): 04/06/24 14:56 Nasopharnyx Influenza Type A Antigen Screen - Final 04/06/24 14:56 Nasopharnyx Influenza Type B Antigen Screen - Final <Nina Apodaca - Last Filed: 04/06/24 18:16> Assessment and Plan - Plan COPD exacerbation Nebs, steroids, and antibiotics O2 per protocol Repeat chest x-ray Pneumonia IV antibiotics Sputum and blood cultures Consider CT scanning of the chest if pneumonia is not improved to evaluate for postobstructive pneumonia Respiratory isolation not needed Neb treatments every 4 to 6 hours as needed O2 per protocol Monitor and trend labs including CBC, CMP, and lactate as needed Iron deficiency anemia Iron level Monitor and trend depakote level Fall Fall precautions Air mattress Skin protection measures Hypertension Hyperlipidemia Hypothyroidism Parkinson's Schizophrenia Continue medications as directed for above past medical problems GI and DVT prophylaxis Discharge Plan: [facility] Plan to discharge in: Greater than 2 days - Advance Directives Does patient have a Living Will: No Does patient have a Durable POA for Healthcare: No <Nina Apodaca - Last Filed: 04/06/24 18:16> Date of Service: 04/06/24 Patient was seen and examined. Events of the last 24 hours have been noted. Spoke with with NANNETTE regarding patient's clinical picture after evaluating and examining the patient independently. I performed a substantial part of the MDM during this patient's care today. I personally made or approved the documented management plan and acknowledge its risk of complications. I agree with the findings and documentation provided in the NANNETTE's notes. <Eloy Dukes - Last Filed: 04/09/24 15:43>
[2024-04-06] MEDS ORDERED: ACETAMINOPHEN 500 MG TAB PO PRN (17:24)
[2024-04-06] MEDS: IPRATROPIUM BROM 0.5MG/2.5ML NEB SCH (19:00)
[2024-04-06] MEDS: ALBUTEROL 2.5 MG/3 ML NEB SOL NEB SCH (19:00)
[2024-04-06] MEDS: METHYLPREDNISOLONE 125 MG INJ IV SCH (19:26)
[2024-04-06] MEDS: ENOXAPARIN 40 MG/0.4 ML SQ SCH (20:48)
[2024-04-06] MEDS: Levofloxacin 750mg IV 750 MG/150 ML BAG IV SCH (20:48)
[2024-04-06] MEDS: DIVALPROEX ER 250 MG TAB PO SCH (20:49)
[2024-04-06] MEDS: ATORVASTATIN 10 MG TAB PO SCH (20:49)
[2024-04-06] MEDS: CODEINE 30MG/APAP 300MG TAB PO PRN (20:49)
[2024-04-06] MEDS: MELATONIN 5 MG TABLET PO PRN (20:49)
[2024-04-06] MEDS ORDERED: QUETIAPINE 100MG TAB PO SCH (21:00)
[2024-04-07 00:06] VITALS: BMI 26.4
[2024-04-07] MEDS: LEVOTHYROXINE SOD 0.1 MG TAB PO SCH (06:16)
[2024-04-07 08:12] LABS: Absolute Lymphocytes (CBC) 1.1 K/uL (0.7-4.9); Absolute Monocytes 0.2 K/uL (0.1-1.3); Absolute Neutrophil 12.6 K/uL (1.8-8.0); Basophils % 0.1 % (0-1.3); Hematocrit 29.7 % (36.0-45.0); Hemoglobin 8.8 g/dL (12.0-15.0); Lymphocytes % 8.2 % (15.3-44.8); MCH 20.4 pg (27.0-35.0); MCHC 29.8 g/dL (32.0-36.0); MCV 68.5 fL (80-100); MPV 8.3 fL (7.6-11.3); Monocytes % 1.5 % (3.3-12.3); Neutrophils % 90.2 % (41.7-73.7); Platelets 324 thou/uL (152-406); RBC Red Blood Cell Count 4.33 M/uL (3.86-4.86); Red Cell Distribution Width 19.2 % (12.1-15.2)
[2024-04-07] MEDS: PARoxetine HCL 10 MG TAB PO SCH (08:16)
[2024-04-07] MEDS: ASPIRIN EC 81 MG TAB PO SCH (08:16)
[2024-04-07] MEDS: PANTOPRAZOLE 40MG TABLET PO SCH (08:16)
[2024-04-07 08:39] LABS: ALT/SGPT < 14 U/L (13-56); AST/SGOT < 10 U/L (15-37); Albumin 2.9 g/dL (3.4-5.0); Albumin/Globulin Ratio 0.7 (1.1-1.8); Alkaline Phosphatase 76 U/L (45-117); Anion Gap 10.1 mEq/L (5.0-15.0); BUN Blood Urea Nitrogen 25 mg/dL (7-18); Bicarbonate 23 mEq/L (21-32); Bilirubin Total 0.3 mg/dL (0.2-1.0); Globulin 4.3 g/dL (2.3-3.5); Glomerular Filtration Rate 81 ml/min (=/>90); Glucose Level 144 mg/dL (74-106); HDL Cholesterol 66 mg/dL (40-60); LDL Cholesterol, Calculated 49 mg/dL (<130); LDL Cholesterol,Calc NonReport 49; Magnesium 2.2 mg/dL (1.6-2.4); Phosphorus 2.8 mg/dL (2.5-4.9); Potassium 4.1 mEq/L (3.5-5.1); Protein, Total 7.2 g/dL (6.4-8.2); Sodium Level 138 mEq/L (136-145)
[2024-04-07 11:57] VITALS: BP 141/67; TEMP 98.1
[2024-04-07 12:22] VITALS: O2SAT 95
--- NOTE | 2024-04-07 14:20 | P.DS ---
Admission Date: 04/06/24 Discharge Date: 04/07/24 Reason for Admission: COPD exacerbation, fall, pneumonia Brief History of Present Illness: is a 74-year-old female with a past medical history of Hypertension, Hyperlipidemia, Hypothyroidism, Parkinson's, Schizophrenia, anemia, and COPD. She resides at a SNF and was brought to the emergency department today after she was found on the ground at her facility in respiratory distress with hypoxia. She improved in the emergency department after steroids and breathing treatments. We will admit her to the hospital for treatment of this COPD exacerbation, chest x-ray shows possible pneumonia, she does have leukocytosis but lactate is negative. COVID swabs are negative. Hospital Course: Ms. Evans has been alert and in no distress. She states she did not fall at her SNF but sat on the floor because she was having a hard time catching her breath. She has received steroids, neb treatments, Levaquin, and O2 at 2 L via nasal cannula. She denies chest pain, shortness of breath, persistent cough. We will transition her to p.o. Levaquin and let her return to [facility]. <Nina Apodaca - Last Filed: 04/07/24 14:15> Admission Date: 04/06/24 Discharge Date: 04/07/24 Hospital Course: Pt seen and examined. I agree with the note by the COAL [employer]MER.Pt is feeling better. Ok to discharge pt with levaquin and steroid. Follow up with PCP and campus recruiting internship. <Shilpa Troy - Last Filed: 04/07/24 17:57> Disposition: TRANSFER TO [facility] Discharge Condition: GOOD Vital Signs/Physical Exam: Temp Pulse Resp BP Pulse Ox 98.1 F 100 H 18 141/67 H 95 04/07/24 11:55 04/07/24 11:55 04/07/24 11:55 04/07/24 11:55 04/07/24 11:55 General: Alert, In no apparent distress, Oriented x3 HEENT: Atraumatic, Normocephalic, PERRLA Neck: Supple Respiratory: Normal air movement Cardiovascular: Normal pulses, Regular rate/rhythm Capillary refill: <2 Seconds Gastrointestinal: Soft and benign, No tenderness Musculoskeletal: No clubbing Integumentary: No rashes Neurological: Normal speech, Normal affect Lymphatics: No axilla or inguinal lymphadenopathy External genitalia: Deferred Rectal: Deferred Laboratory Data at Discharge: WBC 14.00 thou/uL (4.3-10.9) H 04/07/24 07:02 Hgb 8.8 g/dL (12.0-15.0) L 04/07/24 07:02 Hct 29.7 % (36.0-45.0) L 04/07/24 07:02 Plt Count 324 thou/uL (152-406) 04/07/24 07:02 PT 11.9 SECONDS (9.4-12.5) 04/06/24 14:40 INR 1.06 04/06/24 14:40 APTT 25.0 SECONDS (24.3-36.9) 04/06/24 14:40 Sodium 138 mEq/L (136-145) 04/07/24 07:02 Potassium 4.1 mEq/L (3.5-5.1) 04/07/24 07:02 BUN 25 mg/dL (7-18) H 04/07/24 07:02 Creatinine 0.78 mg/dL (0.55-1.02) 04/07/24 07:02 Glucose 144 mg/dL (74-106) H 04/07/24 07:02 Phosphorus 2.8 mg/dL (2.5-4.9) 04/07/24 07:02 Magnesium 2.2 mg/dL (1.6-2.4) 04/07/24 07:02 Total Bilirubin 0.3 mg/dL (0.2-1.0) 04/07/24 07:02 AST < 10 U/L (15-37) L 04/07/24 07:02 ALT < 14 U/L (13-56) 04/07/24 07:02 Alkaline Phosphatase 76 U/L (45-117) 04/07/24 07:02 Triglycerides 83 mg/dL (<150) 04/07/24 07:02 Cholesterol 132 mg/dL (<200) 04/07/24 07:02 HDL Cholesterol 66 mg/dL (40-60) H 04/07/24 07:02 Cholesterol/HDL Ratio 2.00 04/07/24 07:02 <Apodaca,Nina Jett - Last Filed: 04/07/24 14:15> Vital Signs/Physical Exam: Temp Pulse Resp BP Pulse Ox 98.1 F 100 H 18 141/67 H 95 04/07/24 11:55 04/07/24 11:55 04/07/24 11:55 04/07/24 11:55 04/07/24 11:55 Laboratory Data at Discharge: WBC 14.00 thou/uL (4.3-10.9) H 04/07/24 07:02 Hgb 8.8 g/dL (12.0-15.0) L 04/07/24 07:02 Hct 29.7 % (36.0-45.0) L 04/07/24 07:02 Plt Count 324 thou/uL (152-406) 04/07/24 07:02 PT 11.9 SECONDS (9.4-12.5) 04/06/24 14:40 INR 1.06 04/06/24 14:40 APTT 25.0 SECONDS (24.3-36.9) 04/06/24 14:40 Sodium 138 mEq/L (136-145) 04/07/24 07:02 Potassium 4.1 mEq/L (3.5-5.1) 04/07/24 07:02 BUN 25 mg/dL (7-18) H 04/07/24 07:02 Creatinine 0.78 mg/dL (0.55-1.02) 04/07/24 07:02 Glucose 144 mg/dL (74-106) H 04/07/24 07:02 Phosphorus 2.8 mg/dL (2.5-4.9) 04/07/24 07:02 Magnesium 2.2 mg/dL (1.6-2.4) 04/07/24 07:02 Total Bilirubin 0.3 mg/dL (0.2-1.0) 04/07/24 07:02 AST < 10 U/L (15-37) L 04/07/24 07:02 ALT < 14 U/L (13-56) 04/07/24 07:02 Alkaline Phosphatase 76 U/L (45-117) 04/07/24 07:02 Triglycerides 83 mg/dL (<150) 04/07/24 07:02 Cholesterol 132 mg/dL (<200) 04/07/24 07:02 HDL Cholesterol 66 mg/dL (40-60) H 04/07/24 07:02 Cholesterol/HDL Ratio 2.00 04/07/24 07:02 <Shilpa Troy - Last Filed: 04/07/24 17:57> Diet: Regular Activity: Fall precautions <Nina Apodaca Jett - Last Filed: 04/07/24 14:15> <Shilpa Troy - Last Filed: 04/07/24 17:57> Home Medications: Acetaminophen 2 tab PO Q6H PRN 04/07/24 Acetaminophen [Acetaminophen Extra Strength] 500 mg PO DAILY 04/07/24 Albuterol Neb [Proventil 0.083% Neb Soln] 2.5 mg NEB [id number] #1 box 04/07/24 Atorvastatin Calcium [Lipitor*] 10 mg PO BEDTIME 04/07/24 Benzonatate [Tessalon Perle*] 100 mg PO Q8H PRN 04/07/24 Buspirone HCl [Buspar*] 5 mg PO TID 04/07/24 Codeine/APAP [Tylenol #3*] 1 tab PO TID 04/07/24 Divalproex Sodium [Depakote] 3 tab PO BEDTIME 04/07/24 Ergocalciferol (Vitamin D2) [Vitamin D2] 50,000 unit PO SEECOM 04/07/24 Florinal Oral Capsule 1 cap PO Q6H PRN 04/07/24 Gabapentin 300 mg PO TID 04/07/24 Ipratropium Neb [Atrovent*] 0.5 mg NEB [id number] #1 box 04/07/24 Levothyroxine [Synthroid*] 75 mcg PO [id number] 04/07/24 Mag Hydrox/Aluminum Hyd/Simeth [Mylanta Maximum Strength Liq] 15 ml PO Q6H PRN 04/07/24 Melatonin 3 tab PO BEDTIME 04/07/24 PARoxetine HCL [Paxil] 20 mg PO BEDTIME 04/07/24 PARoxetine HCL [Paxil] 40 mg PO BEDTIME 04/07/24 Pantoprazole Sodium 20 mg PO DAILY 04/07/24 Quetiapine Fumarate [Seroquel] 25 mg PO BID 04/07/24 Quetiapine Fumarate [Seroquel] 100 mg PO BID 04/07/24 Quetiapine Fumarate [Seroquel] 200 mg PO BID 04/07/24 guaiFENesin [Robitussin 100MG/5ML*] 10 ml PO Q4H PRN 04/07/24 levoFLOXacin [Levaquin] 500 mg PO DAILY #5 tab 04/07/24 predniSONE [Deltasone] 20 mg PO DAILY #5 tab 04/07/24 New Medications: Ipratropium Neb [Atrovent*] 0.5 mg NEB [id number] #1 box levoFLOXacin [Levaquin] 500 mg PO DAILY #5 tab predniSONE [Deltasone] 20 mg PO DAILY #5 tab Albuterol Neb [Proventil 0.083% Neb Soln] 2.5 mg NEB [id number] #1 box Physician Discharge Instructions: Ms. Evans has been alert and in no distress. She states she did not fall at her SNF but sat on the floor because she was having a hard time catching her breath. She has received steroids, neb treatments, Levaquin, and O2 at 2 L via nasal cannula. She denies chest pain, shortness of breath, persistent cough. Room air saturation is 94%. We will transition her to p.o. Levaquin and let her return to [facility]. She will return with Levaquin 500 p.o. daily x 5 days, prednisone 20 mg p.o. daily x 5 days, and albuterol/Atrovent treatments every 6 hours x 1 week. She should continue all of her home medications Diet: Regular Activity: Fall precautions INSTRUCTIONS: Physician Discharge Instructions: Okay to DC IV and DC home Follow-up with primary care provider in 1 week Please call the inpatient unit for any questions or concerns regarding hospital stay Return to the ER for worsening symptoms Followup: Adolfo Araya MD [Primary Care Provider] -
--- NOTE | 2024-04-10 17:59 | EKG ---
Test Date: 2024-04-06 Test Time: 14:02:30 R And D Lab Technician: LORENA MEASUREMENT RESULTS: Intervals: Rate: 109 ND: 150 QRSD: 92 QT: 360 QTc: 484 [place]: P: 49 ND: 150 QRS: 37 T: 268 INTERPRETIVE STATEMENTS: Sinus tachycardia Otherwise normal ECG Compared to ECG 06/28/2022 16:22:50 Sinus rhythm no longer present ST (T wave) deviation no longer present Electronically Signed On 04-10-24 17:50:05 CDT by Louie Villegas
== END 2024-04-07 16:32 | DRG 190 ==
LOC: ER 13:39 → ERHOLD 17:24 → 2ND 18:36
PROVIDERS: ADMIT Hospitalist; ATTEND Hospitalist
DX: J44.1 Chronic obstructive pulmonary disease with (acute) exacerbation (principal); J18.9 Pneumonia, unspecified organism; J44.0 Chronic obstructive pulmonary disease with (acute) lower respiratory infection; I10 Essential (primary) hypertension; E03.9 Hypothyroidism, unspecified; K21.9 Gastro-esophageal reflux disease without esophagitis; D50.9 Iron deficiency anemia, unspecified; F20.9 Schizophrenia, unspecified; E78.00 Pure hypercholesterolemia, unspecified; G20.A1 Parkinson's disease without dyskinesia, without mention of fluctuations; Z11.52 Encounter for screening for COVID-19; Z79.890 Hormone replacement therapy; Z79.52 Long term (current) use of systemic steroids; Z79.899 Other long term (current) drug therapy
CPT/HCPCS: 36415; 71045; 80048; 80053; 80061; 80164; 83605; 83735; 83880; 84100; 84443; 84484; 85025; 85610; 85730; 87040; 87804; 87811; 93005; 94640; 94760; 96365; 96366; 96367; 96375; 99285; J0696; J1650; J2919; J3475; J7050; J7613; J7614; J7644